=== PATIENT | female | born 1955 | race Caucasian/White ===

== ENCOUNTER 2017-01-26 18:30 | Inpatient (IN) | payer OTHER ==
--- NOTE | 2017-01-26 19:04 | PDOC ---
History of Present Illness - General History Source: Patient Exam Limitations: No Limitations - History of Present Illness Initial Comments: 01/26/17 21:07 A portion of this note was documented by scribe services under my direction. I have reviewed the details of the note, within reason, and agree with the documentation. The case summary and management plan written by me. Assessment and plan: This is a 61-year-old female who comes in complaining of fevers and buttock infection/cellulitis. Patient also said that her sugars have been high and that she has been feeling dizzy and not well. Patient had a low-grade fever here in the emergency room and was given acetaminophen for the fever. Patient has elevated white count with a left shift. CAT scan was done of the pelvis to rule out deep space infection there is a relatively extensive cellulitis but no collection or deep space infection at this time. Patient received IV vancomycin and Invanz as she is ALLERGIC to penicillin. Patient will be admitted to an inpatient bed under the hospitalist service. <Ap Lyon I - Last Filed: 01/26/17 21:07> - General History Source: Patient, Old Records Exam Limitations: No Limitations - History of Present Illness Initial Comments: 01/26/17 19:18 The patient is a 61 year old female with past medical history of diabetes who presents to the ED with complaints of dizziness and nausea which began yesterday evening. The patient reports having high blood sugar since yesterday evening, noting the level to be 338 last night. The patient went to [facility] earlier today for her symptoms and her blood sugar was noted to be 340. The patient was instructed to come to the ED. Additionally, the patient states that she recently developed an abscess on her right buttox as well as a vaginal fungal infection, both of which she denies ever having before. She reports treating the abscess with hot soaks and reports purchasing monistat 7 for her fungal infection but reports that she has not used it yet. She reports subjective fever last evening in which she treated with tylenol and reports chills and loss of appetite. She denies any vomiting, diarrhea, or urinary symptoms. PAST MEDICAL HISTORY: diabetes, hypertension, hyperlipidemia PAST SURGICAL HISTORY: Recent left knee replacement FAMILY HISTORY: no pertinent history SOCIAL HISTORY: Pt lives with family and is employed. MEDICATIONS: reviewed ALLERGIES: As per nursing notes PCP: Maricarmen Ashley General: Present: Fevers, chills, loss of appetite No weakness, no weight loss HEENT: No change in vision. No sore throat. No ear pain CardioVascular: No chest pain or shortness of breath Respiratory:No cough, or wheezing. Gastrointestinal: Present: nausea No vomiting, diarrhea or constipation, No rectal bleeding Genitourinary: Present: Vaginal fungal infection No dysuria, hematuria, or frequency Musculoskeletal: No joint or muscle pain or swelling Neurologic: Present: dizziness No headache, vertigo, loss of consciousness Psychiatric: nor depression Skin: Present: right buttox abscess No rashes or easy bruising Endocrine: no increased thirst or abnormal weight change Allergic: no skin or latex allergy All other systems reviewed and normal General: Well-nourished well-developed individual, no acute distress HEENT: Throat: Normal, tonsils normal, no erythema or exudate Neck: Supple, no meningeal signs, no lymphadenopathy Eyes::Pupils equal reactive and round, extraocular motion intact Chest: Nontender to palpation Cardiac: S1-S2 normal, regular rate and rhythm, no murmurs rubs or gallops Respiratory: Lungs clear to auscultation bilateral Abdomen: Soft, nondistended, normal bowel sounds, nontender to palpation diffusely Pelvic: Thick, white discharge on vagina externally Extremities: Warm, dry, no cyanosis, clubbing, or edema Skin: Right buttox area lateral to rectum markedly swollen, hot, red, with induration. No palpable collection. No rashes Neuro: Alert and oriented x3, nonfocal exam, grossly intact, normal gait Psych: Normal mood and affect <Luna Godoy - Last Filed: 01/26/17 21:37> - General Chief Complaint: Headache Stated Complaint: DIZZINESS, H/A, NAUSEA, DRY MOUTH, ABSCESS Time Seen by Provider: 01/26/17 19:03 Past History - Past Medical History Diabetes: Yes HTN: Yes Other medical history: BELLS PALSY X2 - Surgical History Appendectomy: Yes (AGE 22) - Psycho/Social/Smoking Cessation Hx Anxiety: No Suicidal Ideation: No Smoking History: Former smoker Have you smoked in the past 12 months: No If you are a former smoker, when did you quit?: 1988 Information on smoking cessation initiated: No Hx Alcohol Use: Yes (SOCIAL) Drug/Substance Use Hx: No Substance Use Type: None <Ap Lyon I - Last Filed: 01/26/17 21:07> <Luna Godoy - Last Filed: 01/26/17 21:37> - Past Medical History Allergies/Adverse Reactions: Allergies Allergy/AdvReac Type Severity Reaction Status Date / Time Penicillins Allergy Intermediate Rash Verified 01/26/17 18:57 Sulfa (Sulfonamide Allergy Unknown Rash Verified 01/26/17 18:57 Antibiotics) shrimp Allergy Verified 01/26/17 18:57 Home Medications: Ambulatory Orders Losartan Potassium 100 mg PO DAILY 01/26/17 Metformin HCl 500 mg PO BID 01/26/17 Review of Systems - Review of Systems Able to Perform ROS?: Yes All Other Systems: Reviewed and Negative <Luna Godoy - Last Filed: 01/26/17 21:37> *Physical Exam - Vital Signs Last Vital Signs Temp Pulse Resp BP Pulse Ox 99.1 F 115 H 17 160/80 99 01/26/17 18:40 01/26/17 18:40 01/26/17 18:40 01/26/17 18:40 01/26/17 18:40 <Ap Lyon I - Last Filed: 01/26/17 21:07> - Vital Signs Last Vital Signs Temp Pulse Resp BP Pulse Ox 99.1 F 115 H 17 160/80 99 01/26/17 18:40 01/26/17 18:40 01/26/17 18:40 01/26/17 18:40 01/26/17 18:40 <Luna Godoy - Last Filed: 01/26/17 21:37> Heart Score/ECG Review - ECG Intrepretation Comment:: 01/26/17 21:36 ECG obtained at 21:24 Normal sinus rhythm at 97 bpm, possible left atrial enlargement, left axis deviation <Luna Godoy - Last Filed: 01/26/17 21:37> ED Treatment Course - LABORATORY CBC & Chemistry Diagram: 01/26/17 19:15 01/26/17 19:15 <Ap Lyon I - Last Filed: 01/26/17 21:07> - LABORATORY CBC & Chemistry Diagram: 01/26/17 19:15 01/26/17 19:15 - RADIOLOGY Radiograph Interpretation: 01/26/17 21:[address] as reviewed by Dr. Ovalle reports moderate degree superficial subcutaneous cellulitis in the region of the right buttocks with localized skin thickening and inflammatory stranding in the subcutaneous fat with no signs of organized abscess or marked degree phlegmonous change. There is no evidence of deep extension identified at this time. In view of the extend o the changes noted, treatment with IV antibiotics and close follow up monitoring is recommended. <Luna Godoy - Last Filed: 01/26/17 21:37> *DC/Admit/Observation/Transfer - Discharge Dispostion Admit: Yes <Ap Lyon I - Last Filed: 01/26/17 21:07> - Attestations Scribe Attestion: 01/26/17 19:25 Documentation prepared by Luna Godoy, acting as medical device for Ap Lyon MD. <Luna Godoy - Last Filed: 01/26/17 21:37> Diagnosis at time of Disposition: Cellulitis of buttock, right, Hyperglycemia - Discharge Dispostion Condition at time of disposition: Good - Referrals Referrals: Maricarmen Ashley [Primary Care Provider] -
[2017-01-26] MEDS ORDERED: SODIUM CHLORIDE 1,000 ML IV STA (19:10)
[2017-01-26] MEDS ORDERED: ONDANSETRON 4 MG/2 ML VIAL IVPB ONE (19:18)
[2017-01-26] MEDS ORDERED: ACETAMINOPHEN 1000 MG/100 ML VIAL (NON FORMULARY) IVPB ONE (19:18)
[2017-01-26] MEDS ORDERED: KETOROLAC TROMETHAMINE 30 MG/1 ML VIAL IVPUSH ONE (19:18)
[2017-01-26] MEDS ORDERED: ACETAMINOPHEN INJECTION 100 ML IVPB ONE (19:30)
[2017-01-26] MEDS ORDERED: KETOROLAC TROMETHAMINE 30 MG/1 ML VIAL ONE (19:30)
[2017-01-26] MEDS ORDERED: ONDANSETRON 4 MG/2 ML VIAL ONE (19:30)
[2017-01-26] MEDS ORDERED: FLUCONAZOLE 100 MG TABLET (UD) PO ONE (19:35)
[2017-01-26 19:48] LABS: MCH 32.4 pg (25.7-33.7); MCHC 34.2 g/dl (32.0-36.0); MEAN CELL VOLUME 94.8 fl (80-96); PLATELET COUNT 207 K/MM3 (134-434); RDW 13.3 % (11.6-15.6); WHITE BLOOD COUNT 14.4 K/mm3 (4.0-10.8)
[2017-01-26 20:07] LABS: ACTIVATED PTT 30.6 SECONDS (24.0-38.9)
[2017-01-26 20:10] LABS: ALBUMIN 3.1 g/dl (3.5-5.0); ALK PHOS 61 U/L (32-92); ANION GAP 12 (8-16); BILIRUBIN,TOTAL 1.3 mg/dl (0.2-1.0); CALCIUM 9.2 mg/dl (8.4-10.2); CO2 22 mmol/L (22-28); CREATININE 0.8 mg/dl (0.6-1.3); SGOT/AST 22 U/L (10-42); SGPT/ALT 24 U/L (10-40); TOT PROT 8.1 g/dl (6.4-8.3)
[2017-01-26 20:12] LABS: INR 1.38 (0.82-1.09); PROTHROMBIN TIME (PATIENT) 15.3 SEC (10.2-13.0)
[2017-01-26 20:13] LABS: GLUCOSE,RANDOM 349 mg/dl (74-106)
[2017-01-26 20:35] LABS: TROPONIN I (DFP) 0.03 ng/ml (0.03-0.50)
[2017-01-26 20:42] LABS: VENOUS BLOOD GAS HCO3 23.4 meq/L (19-25); VENOUS PH 7.41 (7.32-7.42)
[2017-01-26] MEDS ORDERED: INSULIN REGULAR HUMAN 100 UNITS/ML *VIAL IVPUSH ONE (20:52)
[2017-01-26] MEDS ORDERED: VANCOMYCIN 1 GRAM (PRE-DOCKED) 1,000 MG/250 ML BAG IVPB STA (20:53)
[2017-01-26] MEDS ORDERED: ERTAPENEM SODIUM 1 GM VIAL IM STA (20:54)
[2017-01-26] MEDS ORDERED: VANCOMYCIN 1,000 MG VIAL (RESTRICTED TO ID ONLY) ONE (21:17)
[2017-01-26] MEDS ORDERED: ERTAPENEM SODIUM 1 GM VIAL ONE (21:17)
[2017-01-26] MEDS ORDERED: INSULIN REGULAR HUMAN 100 UNITS/ML *VIAL ONE ×2 (21:18→23:15)
[2017-01-26] MEDS ORDERED: HEMOQUE TEST 1 EACH EACH ONE (22:52)
[2017-01-26] MEDS: SODIUM CHLORIDE 1,000 ML IV SCH (23:00)
[2017-01-26 23:14] LABS: URINE BILIRUBIN 2+ (NEGATIVE); URINE BLOOD Trace-lysed (NEGATIVE); URINE GLUCOSE (UA) 2+ (NEGATIVE); URINE KETONE 2+ (NEGATIVE); URINE LEUK ESTERASE Trace (NEGATIVE); URINE NITRITE Negative (NEGATIVE); URINE UROBILINOGEN 1.0 E.U/dl (0.2-1.0)
[2017-01-26 23:19] LABS: URINE APPEARANCE HAZY; URINE COLOR YELLOW; URINE PROTEIN 3+ (NEGATIVE)
[2017-01-26 23:22] LABS: URINE BACTERIA FEW /hpf (NEGATIVE); URINE WBC 0-2 (3-5)
--- NOTE | 2017-01-26 23:48 | HP ---
CHIEF COMPLAINT: right buttock PCP: Maricarmen Ashley HISTORY OF PRESENT ILLNESS: This is a 61 year old female with past medical history significant for DM, HTN who presents to the ED with a 2-3 day history of dizziness/nausea, right buttock abscess and elevated blood sugars. She also report a vaginal yeast infection on and off for the past month. She denies chest pain, SOB, abdominal pain, vomiting, diarrhea. ER course was notable for: (1) WBC 14.4; Lactic acid 2.411 (2) given vanco IV and ertapenem IM, diflucan po (3)pain relieved with IV ofirmev and toradol Recent Travel: pt denies PAST MEDICAL HISTORY: HTN DM Allen Palsy celiac disease PAST SURGICAL HISTORY: Left knee replacement 2016 appendectomy with peritonitis age 22 Social History: works as a nurse Smoking: pt denies Alcohol: occ glass of wine Drugs: pt denies Family History: mother age 86, DM, multiple cardiac issues including previous PA father age 64, aortic aneurysm rupture older brother alive with "severe" HTN younger brother alive with lymphoma - malt type as per pt Allergies Penicillins Allergy (Intermediate, Verified 01/26/17 18:57) Rash rash,nausea Sulfa (Sulfonamide Antibiotics) Allergy (Unknown, Verified 01/26/17 18:57) Rash shrimp Allergy (Verified 01/26/17 18:57) HOME MEDICATIONS: 3 Medication Instructions Recorded Losartan Potassium 100 mg PO DAILY 01/26/17 Metformin HCl 500 mg PO BID 01/26/17 REVIEW OF SYSTEMS CONSTITUTIONAL: Present: diaphoresis Absent: fever, chills, generalized weakness, malaise, loss of appetite, weight change HEENT: Absent: rhinorrhea, nasal congestion, throat pain, throat swelling, difficulty swallowing, mouth swelling, ear pain, eye pain, visual changes CARDIOVASCULAR: Absent: chest pain, syncope, palpitations, irregular heart rate, lightheadedness , peripheral edema RESPIRATORY: Absent: cough, shortness of breath, dyspnea with exertion, orthopnea, wheezing, stridor, hemoptysis GASTROINTESTINAL: Present: nausea Absent: abdominal pain, abdominal distension, vomiting, diarrhea, constipation, melena, hematochezia GENITOURINARY: Absent: dysuria, frequency, urgency, hesitancy, hematuria, flank pain, genital pain MUSCULOSKELETAL: Absent: myalgia, arthralgia, joint swelling, back pain, neck pain SKIN: Absent: rash, itching, pallor HEMATOLOGIC/IMMUNOLOGIC: Absent: easy bleeding, easy bruising, lymphadenopathy, frequent infections ENDOCRINE: Absent: unexplained weight gain, unexplained weight loss, heat intolerance, cold intolerance NEUROLOGIC: Present: dizziness Absent: headache, focal weakness or paresthesias, unsteady gait, seizure, mental status changes, bladder or bowel incontinence PSYCHIATRIC: Absent: anxiety, depression, suicidal or homicidal ideation, hallucinations. PHYSICAL EXAMINATION Vital Signs - 24 hr 3 01/26/17 18:40 Temperature 99.1 F Pulse Rate 115 H Respiratory 17 Rate Blood Pressure 160/80 O2 Sat by Pulse 99 Oximetry (%) GENERAL: Awake, alert, and fully oriented, in no acute distress. HEAD: Normal with no signs of trauma. EYES: Pupils equal, round and reactive to light, extraocular movements intact, sclera anicteric, conjunctiva clear. No lid lag. EARS, NOSE, THROAT: Ears normal, nares patent, oropharynx clear without exudates. Moist mucous membranes. NECK: Normal range of motion, supple without lymphadenopathy, JVD, or masses. LUNGS: Breath sounds equal, clear to auscultation bilaterally. No wheezes, and no crackles. No accessory muscle use. HEART: Regular rate and rhythm, normal S1 and S2 without murmur, rub or gallop. ABDOMEN: Soft, nontender, not distended, normoactive bowel sounds, no guarding, no rebound, no masses. No hepatomegaly or splenomegaly. MUSCULOSKELETAL: Normal range of motion at all joints. No bony deformities or tenderness. No CVA tenderness. UPPER EXTREMITIES: 2+ pulses, warm, well-perfused. No cyanosis. No clubbing. No peripheral edema. LOWER EXTREMITIES: 2+ pulses, warm, well-perfused. No calf tenderness. No peripheral edema. NEUROLOGICAL: Cranial nerves II-XII intact. Normal speech. Normal gait. PSYCHIATRIC: Cooperative. Good eye contact. Appropriate mood and affect. SKIN: Warm, dry, normal turgor, no rashes or lesions noted, normal capillary refill. + erythema, firm edema to right buttock, perianal area and external labia, no fluctuance. + tenderness, + warmth Laboratory Results - last 24 hr 3 01/26/17 01/26/17 01/26/17 01/26/17 19:15 19:15 19:15 19:25 WBC 14.4 H D RBC 4.30 Hgb 13.9 Hct 40.7 MCV 94.8 MCHC 34.2 RDW 13.3 Plt Count 207 MPV 8.0 D Neutrophils % 91.0 H D Lymphocytes % 1.0 L D Monocytes % 4.0 Band Neutrophils 4.0 INR 1.38 H PTT (Actin FS) 30.6 VBG pH 7.41 POC VBG pCO2 37.5 L POC VBG pO2 28.2 Mixed VBG HCO3 23.4 Sodium 125 L Potassium 4.4 Chloride 91 L Carbon Dioxide 22 D Anion Gap 12 BUN 20 H D Creatinine 0.8 D Creat Clearance w eGFR > 60 Random Glucose 349 H* Lactic Acid 2.411 H* Calcium 9.2 Total Bilirubin 1.3 H D AST 22 D ALT 24 D Alkaline Phosphatase 61 Creatine Kinase 39 Troponin I 0.03 Total Protein 8.1 Albumin [address]/PELVIS CT WITHOUT CONTRAST ADDENDUM ADDENDUM #1 Typographical error is noted in the impression which should read: Impression: Moderate degree superficial subcutaneous cellulitis in the region of the right buttocks with localized skin thickening and inflammatory stranding in the subcutaneous fat with no signs of organized abscess or marked degree phlegmonous change. There is no evidence of deep extension identified at this time. In view of the extent of the changes noted, treatment with IV antibiotics and close follow-up monitoring is recommended. ORIGINAL REPORT CT pelvis without contrast Comparison studies: None Clinical history: Buttocks infection-evaluation for deep abscess Patient with diabetes Axial imaging completed with coronal and sagittal reformations, intravenous and oral contrast are not administered Superficial subcutaneous gluteal region cellulitis with microdroplets of free air noted projecting superficially and inferior to the levator ani muscles at least 5 cm superficial to the levator ani muscles and projecting at least 5 cm medial to the gluteal muscles with no signs of deep extension. No organized abscess or loculated collection is seen. No significant phlegmonous changes are seen with moderate degree stranding in the subcutaneous fat consistent with soft tissue cellulitis. Treatment with IV antibiotics is recommended and close follow-up monitoring of the findings. Impression: Moderate degree superficial subcutaneous saline this in the region of the right buttocks with localized skin thickening and inflammatory stranding in the subcutaneous fat with no signs of organized abscess or marked phlegmonous change and no deep extension visualized at this time. Review of the extent of the changes while superficial, treatment with intravenous antibiotics and close follow-up monitoring is recommended. Reported By: Alfredo Ovalle MD ASSESSMENT/PLAN: 61yF with PMH significant for DM, HTN, L TKR 2015 presented to ED with right buttock cellulitis. She is being admitted for further management. Sepsis secondary to cellulitis right buttock, likely MRSA - given vancomycin and ertapenem in the ED. - cont vancomycin - ID consult ordered - surgical consult if any fluctuance, none at this time - repeat lactic acid - NS@ 100cc/hr DM with Hyperglycemia - likely due to infection - hold home metformin - BGM TIDACHS with novolog sliding scale for now, if BGM persistently elevated, start levemir hyponatremia - sodium corrects to 129. - repeat BMP in am - cont NS @ 100cc/hr, if not improving, fluid restrict and renal consult HTN - cont home losartan DVT PPX - heparin 5000 TID FEN - NS @ 100cc/hr - Repeat BMP in am - Diabetic gluten free diet Dispo: pt currently requires inpatient management of her emergent condition. Visit type - Emergency Visit Emergency Visit: Yes ED Registration Date: 01/26/17 Care time: The patient presented to the Emergency Department on the above date and was hospitalized for further evaluation of their emergent condition. - New Patient This patient is new to me today: Yes Date on this admission: 01/26/17 - Critical Care Critical Care patient: No
[2017-01-27 00:37] VITALS: BMI 37.3
[2017-01-27] MEDS ORDERED: HEPARIN NA (PORCINE) 5,000 UNITS/ML 1ML VIAL SQ SCH (06:00)
[2017-01-27] MEDS: ACETAMINOPHEN 325 MG TABLET (FP) PO PRN ×2 (06:23→15:08)
[2017-01-27] MEDS: INSULIN SLIDING SCALE (NOVOLOG) 1 VIAL SQ SCH ×3 (06:29→22:13)
[2017-01-27 07:48] LABS: MCH 31.8 pg (25.7-33.7); MCHC 33.1 g/dl (32.0-36.0); MEAN CELL VOLUME 96.1 fl (80-96); MEAN PLT VOLUME 8.1 fl (7.5-11.1); PLATELET COUNT 195 K/MM3 (134-434); RDW 13.3 % (11.6-15.6); WHITE BLOOD COUNT 12.4 K/mm3 (4.0-10.8)
[2017-01-27 08:07] LABS: CALCIUM 8.7 mg/dl (8.4-10.2); COCKROFT - GAULT 109.293; CREATININE 0.8 mg/dl (0.6-1.3); MAGNESIUM 1.5 mg/dL (1.8-2.4); PHOSPHOROUS 2.4 mg/dl (2.5-4.6)
--- NOTE | 2017-01-27 08:20 | PN ---
Progress Note (short form) - Note Progress Note: ID consult dictated imp/reccd buttock abscess diabetes pen allergy (vomiting and nausea) vancomycin/ertapenem surgery consult- npo until seen by surgery f/u cultures d/w hospitalist Problem List - Problems (1) Abscess of buttock Code(s): L02.31 - CUTANEOUS ABSCESS OF BUTTOCK (2) Cellulitis of buttock, right Code(s): L03.317 - CELLULITIS OF BUTTOCK (3) Diabetes Code(s): E11.9 - TYPE 2 DIABETES MELLITUS WITHOUT COMPLICATIONS (4) Penicillin allergy Code(s): Z88.0 - ALLERGY STATUS TO PENICILLIN
--- NOTE | 2017-01-27 08:52 | CONS ---
DATE OF CONSULTATION: DATE OF DICTATION: 01/27/2017 REQUESTED BY: The hospitalist service. This is a 61-year-old woman with a history of diabetes who presents with high sugar since Sunday and a lump in her right buttock. She felt ill on Sunday. She went home early from work. She did not go to work . Sunday, she went to [facility] where she was noted to have an elevated blood sugar, and sent to the ER where she was noted to have right buttock swelling extending to her vulva. She had cultures drawn. She had a CAT scan of her pelvis done that shows superficial gluteal area cellulitis with some droplets of free air. She was given vancomycin and ertapenem in the emergency room. She reports she has had sweats and chills, no documented fevers since this all began and the lump appeared. She reports feeling that she has had like a fungal-vaginal infection and an itch for the last month. PAST MEDICAL HISTORY: Notable for diabetes, hypertension, hyperlipidemia. She had a left knee replacement in December 2015 at [facility]. She was at that time MRSA nares culture-positive and was treated with nasal mupirocin prior to her surgery. She has a history of Romero palsy x2, celiac disease. Surgical history: She had an appendectomy with peritonitis at age 22. ALLERGIES: PENICILLIN, which she states gives her nausea and vomiting; SULFA, which gives her a rash; SHRIMP. MEDICATIONS: She takes losartan and metformin as an outpatient. SOCIAL HISTORY: She does not smoke. She works as a nurse. There is no history of any substance use. FAMILY HISTORY: Notable for diabetes, coronary artery disease, and hypertension. REVIEW OF SYSTEMS: She is awake and alert. Again, she notes profuse sweats. She has no abdominal pain. She has no cough. She has no chest pain. She notes discomfort in her buttock area. PHYSICAL EXAMINATION: General: She is awake and alert. Vital signs: Temperature is 98.6, T-max is 99.1; pulse is 96; blood pressure is 111/55; respiratory rate is 18; she weighs 204 pounds; she is saturating 98% on room air. HEENT: She is normocephalic. Her eyes are anicteric. Neck: Supple. Lungs: Clear to auscultation. Heart: Regular rate and rhythm. Abdomen: Soft. Nontender. Genitourinary: Her perineum is noted for she has induration along the medial aspect of her right buttock that extends into her vulva. The entire area is enlarged, erythematous, and indurated. No fluctuance is noted. LABORATORIES: Notable for a white count of 14.4 on admission, hemoglobin 13.9, platelets 207. This morning, white count is 12.4. INR is 1.3. BUN 26 and creatinine 0.8 with a glucose of 129. Lactic acid was 2.4 on admission and repeat was 1.9. Urinalysis is negative for leukocyte esterase and cultures are pending. CAT scan was read as moderate-degree, superficial, subcutaneous swelling in the region of the right buttock with localized skin thickening and inflammatory stranding. There are microdroplets of free air noted. In summary, this is a 61-year-old woman with a buttock abscess extending along to her vulva with diabetes and a PENICILLIN allergy. I would continue the vancomycin and ertapenem on the basis of her allergies and prior MRSA history. Would definitely obtain a Surgery evaluation to see if she needs drainage, as there are some droplets of air visible on the CAT scan. I would keep her n.p.o. until seen by Surgery and follow up her cultures. All of the above was discussed with the covering hospitalist. MUNIR NUR M.D. [id number]
[2017-01-27] MEDS ORDERED: VANCOMYCIN 1 GRAM (PRE-DOCKED) 1,000 MG/250 ML BAG IVPB ONE (09:00)
[2017-01-27] MEDS: VANCOMYCIN 1,250 MG in DEXTROSE 5%-WATER - 250 ML IVPB SCH ×2 (09:20→22:12)
[2017-01-27] MEDS ORDERED: POLYMYXIN B SULFATE 500,000 UNIT VIAL ONE (09:51)
[2017-01-27] MEDS ORDERED: GENTAMICIN SO4 80 MG/2 ML VIAL ONE (09:51)
--- NOTE | 2017-01-27 09:57 | CONSULT ---
Consult Consult Specialty:: colorectal surgery Reason for Consultation:: r/o necrotizing infection - History of Present Illness Chief Complaint: perirectal pain History of Present Illness: pt with pain for a couple days near anus/buttock/lower labia. Now feeling systemic symptoms of malaise, fever, chills, muscle aches. came to ED and workup reveals hyponatremia, leukocytosis, glucose of almost 350, lactic acidosis and CT showing air in subcutaneous tissues. - Past Medical History ...: No - Alcohol/Substance Use Hx Alcohol Use: Yes (SOCIAL) - Smoking History Smoking history: Former smoker Have you smoked in the past 12 months: No If you are a former smoker, when did you quit?: 1988 Home Medications - Allergies Allergies/Adverse Reactions: Allergies Allergy/AdvReac Type Severity Reaction Status Date / Time Penicillins Allergy Intermediate Rash Verified 01/26/17 18:57 Sulfa (Sulfonamide Allergy Unknown Rash Verified 01/26/17 18:57 Antibiotics) shrimp Allergy Verified 01/26/17 18:57 - Home Medications Home Medications: Ambulatory Orders Losartan Potassium 100 mg PO DAILY 01/26/17 Metformin HCl 500 mg PO BID 01/26/17 Family Disease History - Family Disease History Family History: Unremarkable Review of Systems - Review of Systems Constitutional: reports: Chills, Diaphoresis, Fever, Lethargy Eyes: denies: Blind Spots, Blurred Vision HENT: denies: Difficult Swallowing, Ear Discharge Neck: denies: Decreased ROM, Lumps Cardiovascular: denies: Chest Pain, Edema Respiratory: denies: Cough, Exercise Intolerance Gastrointestinal: denies: Abdominal Pain, Bloating Genitourinary: denies: Burning, Discharge Breasts: denies: Lumps, Pain Musculoskeletal: denies: Back Pain, Crepitus Integumentary: reports: Erythema. denies: Blister, Bruising Neurological: denies: Change in LOC, Change in Speech Endocrine: denies: Excessive Sweating, Flushing Hematology/Lymphatic: denies: Easily Bruised, Excessive Bleeding Psychiatric: denies: Altered Sleep Pattern, Anxiety Physical Exam Vital Signs: Vital Signs Temperature 98.6 F 01/26/17 23:52 Pulse Rate 96 H 01/26/17 23:52 Respiratory Rate 18 01/26/17 23:52 Blood Pressure 111/55 01/26/17 23:52 O2 Sat by Pulse Oximetry (%) 98 01/26/17 23:52 Constitutional: Yes: No Distress, Calm Eyes: Yes: Conjunctiva Clear, EOM Intact HENT: Yes: Atraumatic, Normocephalic Neck: Yes: Supple, Trachea Midline Cardiovascular: Yes: Regular Rate and Rhythm Respiratory: Yes: Regular, CTA Bilaterally Gastrointestinal: Yes: Normal Bowel Sounds, Soft. No: Distention, Tenderness ...Rectal Exam: Yes: Other (in lithotomy position can see induration under labia towards buttock/anal region on right side. in left lateral decubitus positionshe has more tenderness right anterior of anus.) Renal/: No: Bladder Distention, Oliguria Musculoskeletal: No: Joint Stiffness, Joint Swelling Extremities: No: Calf Tenderness, Erythema Integumentary: No: Erythema, Rash Neurological: Yes: Alert, Oriented Psychiatric: Yes: Alert, Oriented Labs: CBC, BMP 01/27/17 07:10 01/27/17 07:10 Imaging - Results Cat Scan: Report Reviewed, Image Reviewed Problem List - Problems (1) Abscess of buttock Assessment/Plan: patient with necrotizing type infection given air in subcutaneous tissues broad spectrum abx npo for I&D emergently Code(s): L02.31 - CUTANEOUS ABSCESS OF BUTTOCK (2) Diabetes Code(s): E11.9 - TYPE 2 DIABETES MELLITUS WITHOUT COMPLICATIONS (3) Hyperglycemia Code(s): R73.9 - HYPERGLYCEMIA, UNSPECIFIED
[2017-01-27] MEDS ORDERED: PROPOFOL 20 ML ONE ×2 (09:59)
[2017-01-27] MEDS ORDERED: SUCCINYLCHOLINE CHLORIDE 200 MG/10 ML VIAL ONE (10:00)
[2017-01-27] MEDS ORDERED: MIDAZOLAM HCL 2 MG/2 ML SINGLE DOSE VIAL ONE (10:00)
[2017-01-27] MEDS ORDERED: ePHEDrine SULFATE 50 MG/1 ML AMPULE ONE (10:00)
[2017-01-27] MEDS: LOSARTAN POTASSIUM 50 MG TABLET (FP) PO SCH (10:10)
--- NOTE | 2017-01-27 10:22 | PN ---
Physical Exam: SUBJECTIVE: Patient seen and examined Pt c/o sweating after Tylenol, and reports mild nausea, no vomiting,denies abdominal pain,fever, chills, cp, sob, palpitations, urinary symptoms or Rt buttock pain. OBJECTIVE: GENERAL: The patient is awake, alert, and fully oriented, in no acute distress. HEAD: Normal with no signs of trauma. EYES: PERRL, extraocular movements intact, sclera anicteric, conjunctiva clear. No ptosis. ENT: Ears normal, nares patent, oropharynx clear without exudates, moist mucous membranes. NECK: Trachea midline, full range of motion, supple. LUNGS: Breath sounds equal, clear to auscultation bilaterally, no wheezes, no crackles, no accessory muscle use. HEART: Regular rate and rhythm, S1, S2 without murmur, rub or gallop. ABDOMEN: Soft, nontender, nondistended, normoactive bowel sounds, no guarding, no rebound, no hepatosplenomegaly, no masses. RT buttock with redness,mild tenderness,+ induration, no drainage,spreading from buttock to the perineum. EXTREMITIES: 2+ pulses, warm, well-perfused, no edema. NEUROLOGICAL: Cranial nerves II through XII grossly intact. Normal speech, gait not observed. PSYCH: Normal mood, normal affect. SKIN: Warm, dry, normal turgor, no rashes or lesions noted Laboratory Results - last 24 hr 01/27/17 01/27/17 01/27/17 06:29 07:10 07:10 WBC 12.4 H RBC 3.77 Hgb 12.0 D Hct 36.2 MCV 96.1 H MCHC 33.1 RDW 13.3 Plt Count 195 MPV 8.1 Neutrophils % Y Lymphocytes % Y Sodium 129 L Potassium 4.1 Chloride 97 L Carbon Dioxide 24 Anion Gap 8 BUN 26 H D Creatinine 0.8 POC Glucometer 230 Random Glucose 227 H D Calcium 8.7 Phosphorus 2.4 L Magnesium 1.5 L Active Medications Generic Name Dose Route Start Last Admin Trade Name Freq PRN Reason Stop Dose Admin Acetaminophen 650 mg 01/27/17 01:44 01/27/17 06:23 Tylenol - PO 650 mg Q6H PRN Administration FEVER OR PAIN Sodium Chloride 1,000 mls @ 100 mls/hr 01/26/17 23:00 01/26/17 23:00 Normal Saline - IV 100 mls/hr ASDIR ROGER Administration Vancomycin HCl 1,250 mg/ 250 mls @ 250 mls/hr 01/27/17 10:00 01/27/17 09:20 Dextrose IVPB 250 mls/hr BID ROGER Administration Protocol Ertapenem 1 gm/ Sodium 50 mls @ 50 mls/hr 01/27/17 10:00 Chloride IVPB DAILY ROGER Protocol Insulin Aspart 1 vial 01/27/17 07:00 01/27/17 06:29 Novolog Vial Sliding Scale - SQ 3 units ACHS ROGER Administration Protocol Losartan Potassium 100 mg 01/27/17 10:00 Cozaar - PO DAILY ROGER * Imaging Pelvis CT :Moderate degree superficial subcutaneous saline this in the region of the right buttocks with localized skin thickening and inflammatory stranding in the subcutaneous fat with no signs of organized abscess or marked phlegmonous change and no deep extension visualized at this time. Review of the extent of the changes while superficial, treatment with intravenous antibiotics and close follow-up monitoring is recommended. *Cultures done, report pending CxR: NAD ASSESSMENT/PLAN: This is a 61 year old female with past medical history significant for DM, HTN who presents to the ED with a 2-3 day history of dizziness/nausea, right buttock pain, and not feeling well . In ER found to have elevated WBC,lactic acid and hyponatremia. *Sepsis likely due to Rt buttock cellulitis - afebrile , WBC trending down -ID in put appreciated - will cont on Vanco and Ertapenem - surgery following, plan I&D today - will keep pt NPO - lactic acid normalized - BC done, report pending - will cont on IVF *DM with Hyperglycemia- likely due to infection - BS trending down - will check HgbAlc - will cont on hold off on home metformin - BGM TIDACHS with novolog sliding scale for now, if BGM persistently elevated, start levemir *Hyponatremia- likely due to dehydration - NA level 125 >129 (sodium corrects to 129) - will cotn on IVF *HTN- BP controlled - cont home losartan * Low mg and phosphorus - will replace - will f/u on labs in am *DVT PPX- Will hold off on Heparin for now and will resume, if no bleeding post sx, will use SCD for now FEN- NS @ 100cc/hr- Diabetic gluten free diet Visit type - Emergency Visit Emergency Visit: Yes ED Registration Date: 01/26/17 Care time: The patient presented to the Emergency Department on the above date and was hospitalized for further evaluation of their emergent condition. - New Patient This patient is new to me today: Yes Date on this admission: 01/27/17 - Critical Care Critical Care patient: No
[2017-01-27] MEDS: ERTAPENEM SODIUM 1 GM in SODIUM CHLORIDE 50 ML IVPB SCH (10:35)
[2017-01-27] MEDS ORDERED: LIDOCAINE HCL 1%, 10 MG/ML (20ML VIAL) ONE (10:36)
[2017-01-27] MEDS ORDERED: MAGNESIUM SULF 50% (8.12 MEQ/2 ML-1 GM VIAL) IVPB ONE (10:42)
[2017-01-27] MEDS ORDERED: POTASSIUM PHOSPHATE IVPB ONE (10:46)
[2017-01-27] MEDS ORDERED: SODIUM CHLORIDE IVPB ONE (10:46)
[2017-01-27 10:55] LABS: PLATELET ESTIMATE NORMAL (NORMAL)
[2017-01-27] MEDS ORDERED: POTASSIUM PHOSPHATE 15 MM in SODIUM CHLORIDE 250 ML IVPB ONE (11:05)
--- NOTE | 2017-01-27 11:12 | OP ---
Operative Note - Note: Operative Date: 01/27/17 Pre-Operative Diagnosis: necrotizing buttock infection Operation: incision and drainage of necrotizing infection Findings: extensive infection with necrotic type tissue/foul smelling but relatively superficial. does NOT appear to be of anal origin. Post-Operative Diagnosis: Same as Pre-op Surgeon: Maldonado Angulo Anesthesia: Spinal Estimated Blood Loss (mls): 10 Operative Report Dictated: Yes
[2017-01-27] MEDS ORDERED: OXYCODONE/APAP 5/325MG COMBO TABLET PO PRN ×3 (11:14→11:45)
[2017-01-27] MEDS ORDERED: HYDROmorphone HCL CARPU-JECT 1 MG/1 ML DISP.SYRIN IVPB PRN (11:14)
[2017-01-27] MEDS ORDERED: SODIUM CHLORIDE 1,000 ML IV SCH (11:15)
[2017-01-27] MEDS ORDERED: PROMETHAZINE HCL 25 MG/1 ML VIAL IVPUSH PRN ×2 (11:28→11:44)
[2017-01-27] MEDS ORDERED: ONDANSETRON 4 MG/2 ML VIAL IVPUSH PRN ×2 (11:28→11:44)
[2017-01-27] MEDS ORDERED: LACTATED RINGERS SOLUTION 1,000 ML IV SCH (11:30)
[2017-01-27] MEDS ORDERED: INSULIN (NOVOLOG) ASPART 100 UNITS/ML 10ML VIAL SQ ONE (11:45)
--- NOTE | 2017-01-27 11:55 | OP ---
DATE OF OPERATION: 01/27/2017 PREOPERATIVE DIAGNOSIS: A necrotizing infection of the buttock. POSTOPERATIVE DIAGNOSIS: A necrotizing infection of the buttock. PROCEDURE PERFORMED: Incision and drainage of a necrotizing infection, with debridement of the wound. DRAINS: [place] drains x4. INCISIONS: A total of 4 incisions. SURGEON: Twan Angulo MD ANESTHESIA: Spinal, saddle block. OPERATIVE FINDINGS: The patient had foul-smelling exudate, but really no simba pus. This was sent for culture. DESCRIPTION OF PROCEDURE: The patient was taken to the operating room emergently, after I was consulted that the patient had hyperglycemia, air in the soft tissues and was toxic in appearance. The patient was brought to the operating room after confirming name, date of and medical record number. She was given a spinal anesthetic and then placed in a prone position. She was then prepped and draped in the usual sterile fashion. We confirmed that she was given appropriate perioperative antibiotics. A time-out was then performed. I made an incision over the most indurated area in the right anterior aspect of the anus. I went down to the space where there was no pus but definitely a free space because of , necrotic tissue. This was signified by some grayish exudate, as well as cruz-brown tinge of the muscle. Then I made a counterincision in the inferior labia, which was also indurated. Using a Teresa clamp, I was able to find the tract of how this infection spread. There was also an area of induration posterior, to the right of the anus. This was investigated with an incision, and there was some more grayish exudate. Then I enlarged this opening and more cruz, foul-smelling fluid came out. Then I made another counterincision. Then eventually all 4 incisions were linear. I then debrided the grayish tissue by dragging a Teresa clamp through it, with a lap pad to debride the tissue. I then made cruciate-type incisions to try to open up the wound as best as possible without removing too much skin. I used my finger to continuously debride and investigate any necrotic tissue. It did not appear that this infection went across the midline, as the tissue appeared more solid as I went to the posterior midline of the anus. I actually pushed on the left side to see if there was any fluid drainage into the wound, and there was not, and it was soft on the left side as well. The CT scan did not show anything on the left side. At this point, I then copiously irrigated the cavities. Then I actually made an ellipse of skin and sent it off for pathology. Then I placed a [place] drain, looped so the top two got one [place] loop and then the bottom two got another [place], and this was secured with silk suture. So there was a total of 2 [place] drains left in the patient. Then I placed dry gauze on top and an ABD, and secured it with silk tape. The patient tolerated the procedure well. TWAN ANGULO M.D. RAMOS/[id number]
[2017-01-27] MEDS: METRONIDAZOLE 500 MG PREMIXED 100 ML IVPB SCH (20:00)
[2017-01-27] MEDS ORDERED: INSULIN (NOVOLOG) ASPART 100 UNITS/ML 10ML VIAL ONE (21:28)
[2017-01-28] MEDS: SODIUM CHLORIDE 1,000 ML IV SCH (01:43)
[2017-01-28] MEDS: METRONIDAZOLE 500 MG PREMIXED 100 ML IVPB SCH ×3 (01:44→18:36)
[2017-01-28 08:37] LABS: MCH 32.1 pg (25.7-33.7); MCHC 33.6 g/dl (32.0-36.0); MEAN CELL VOLUME 95.3 fl (80-96); MEAN PLT VOLUME 8.6 fl (7.5-11.1); PLATELET COUNT 186 K/MM3 (134-434); RDW 13.3 % (11.6-15.6); WHITE BLOOD COUNT 11.1 K/mm3 (4.0-10.8)
[2017-01-28 08:50] LABS: ANION GAP 12 (8-16); CALCIUM 8.5 mg/dl (8.4-10.2); CO2 19 mmol/L (22-28); CREATININE 0.7 mg/dl (0.6-1.3); GLUCOSE,RANDOM 196 mg/dl (74-106); MAGNESIUM 1.7 mg/dL (1.8-2.4); PHOSPHOROUS 2.2 mg/dl (2.5-4.6)
[2017-01-28] MEDS: LOSARTAN POTASSIUM 50 MG TABLET (FP) PO SCH (10:05)
[2017-01-28] MEDS: ERTAPENEM SODIUM 1 GM in SODIUM CHLORIDE 50 ML IVPB SCH (10:07)
[2017-01-28] MEDS: ENOXAPARIN NA (PORCINE) 40 MG/0.4 ML DISP.SYRIN SQ SCH (10:07)
[2017-01-28] MEDS: VANCOMYCIN 1,250 MG in DEXTROSE 5%-WATER - 250 ML IVPB SCH ×2 (10:07→22:26)
--- NOTE | 2017-01-28 10:51 | PN ---
Progress Note, Physician Chief Complaint: less pain History of Present Illness: feels better. ambulating. showered. +fever. tolerating diet. pain is better. drainage is copious. - Current Medication List Current Medications: Active Medications Acetaminophen (Tylenol -) 650 mg PO Q6H PRN PRN Reason: FEVER OR PAIN Last Admin: 01/27/17 15:08 Dose: 650 mg Enoxaparin Sodium (Lovenox -) 40 mg SQ DAILY ROGER Fentanyl (Sublimaze Injection -) 25 mcg IVPUSH [id number] PRN PRN Reason: PAIN Stop: 01/30/17 11:44 Hydromorphone HCl (Dilaudid Injection -) 1 mg IVPB Q4H PRN PRN Reason: PAIN Sodium Chloride (Normal Saline -) 1,000 mls @ 100 mls/hr IV ASDIR [facility] Last Admin: 01/28/17 01:43 Dose: 100 mls/hr Vancomycin HCl 1,250 mg/ (Dextrose) 250 mls @ 250 mls/hr IVPB BID ROGER PRN Reason: Protocol Last Admin: 01/27/17 22:12 Dose: 250 mls/hr Ertapenem 1 gm/ Sodium (Chloride) 50 mls @ 50 mls/hr IVPB DAILY ROGER PRN Reason: Protocol Last Admin: 01/27/17 10:35 Dose: 50 mls/hr Sodium Chloride (Normal Saline -) 1,000 mls @ 125 mls/hr IV ASDIR [facility] Last Admin: 01/27/17 19:46 Dose: Not Given Lactated Ringer's (Lactated Ringers Solution) 1,000 mls @ 75 mls/hr IV ASDIR [facility] Last Admin: 01/27/17 19:46 Dose: Not Given Metronidazole (Flagyl 500mg Premixed Ivpb -) 100 mls @ 100 mls/hr IVPB Q8H-IV [facility] Last Admin: 01/28/17 01:44 Dose: 100 mls/hr Insulin Aspart (Novolog Vial Sliding Scale -) 1 vial SQ ACHS ROGER PRN Reason: Protocol Last Admin: 01/27/17 22:13 Dose: 4 units Losartan Potassium (Cozaar -) 100 mg PO DAILY [facility] Last Admin: 01/27/17 10:10 Dose: 100 mg Oxycodone/Acetaminophen (Percocet 5/325 -) 2 combo PO Q4H PRN PRN Reason: PAIN LEVEL 6-10 Oxycodone/Acetaminophen (Percocet 5/325 -) 1 combo PO Q4H PRN PRN Reason: PAIN LEVEL 1-5 - Objective Vital Signs: Vital Signs Temperature 100.3 F H 01/28/17 04:00 Pulse Rate 104 H 01/28/17 04:00 Respiratory Rate 20 01/28/17 04:00 Blood Pressure 135/67 01/28/17 04:00 O2 Sat by Pulse Oximetry (%) 95 01/27/17 22:36 Constitutional: Yes: No Distress, Calm Eyes: Yes: Conjunctiva Clear, EOM Intact HENT: Yes: Atraumatic, Normocephalic Neck: Yes: Supple, Trachea Midline Cardiovascular: Yes: Regular Rate and Rhythm Respiratory: Yes: Regular, CTA Bilaterally Gastrointestinal: Yes: Soft. No: Distention ...Rectal Exam: Yes: Deferred Genitourinary: No: CVA Tenderness - Left, CVA Tenderness - Right Musculoskeletal: Yes: Other (wound open with some red brown erythema. less indurated. no purulence.) Extremities: No: Calf Tenderness, Erythema Integumentary: No: Erythema, Rash Neurological: Yes: Alert, Oriented Psychiatric: Yes: Alert, Oriented Labs: CBC, BMP 01/28/17 06:30 01/28/17 06:30 INR, PTT INR 1.38 (0.82-1.09) H 01/26/17 19:15 Problem List - Problems (1) Abscess of buttock Assessment/Plan: cont wound care cont abx for fever may consider D/C home once no fever Code(s): L02.31 - CUTANEOUS ABSCESS OF BUTTOCK (2) Diabetes Code(s): E11.9 - TYPE 2 DIABETES MELLITUS WITHOUT COMPLICATIONS (3) Hyperglycemia Code(s): R73.9 - HYPERGLYCEMIA, UNSPECIFIED
[2017-01-28] MEDS: ACETAMINOPHEN 325 MG TABLET (FP) PO PRN (11:00)
--- NOTE | 2017-01-28 13:20 | PN ---
Progress Note (short form) - Note Progress Note: feels better having some fevers postop wound drained yesterday in the OR, several josh drains placed she feels better Vital Signs Period Temp Pulse Resp BP Sys/Sloan Pulse Ox Last 24 Hr 98.5 F-101.0 F 100-104 17-20 120-135/54-67 95-96 cor-rrr lungs clear abd soft,nt ext no edema much less induration of the vulva and buttock, minimal drainage from the drains CBC, BMP 01/28/17 06:30 01/28/17 06:30 Microbiology 01/27/17 13:09 Buttock - Right Gram Stain - Final 01/27/17 13:09 Buttock - Right Wound Culture - Preliminary NO GROWTH OBTAINED AFTER 24 HOURS INCUBATION, REINCUBATED. 01/27/17 01:00 Nares - Right Nares MRSA Screen - Final NO MRSA ISOLATED 01/27/17 00:10 Nares - Mrsa Screen - Left MRSA Screen - Final NO MRSA ISOLATED 01/26/17 23:00 Urine - Urine Clean Catch Urine Culture - Final NO GROWTH OBTAINED 01/26/17 19:15 Blood - Peripheral Venous Blood Culture - Preliminary NO GROWTH OBTAINED AFTER 24 HOURS, INCUBATION TO CONTINUE FOR 4 DAYS. 01/26/17 19:15 Blood - Peripheral Venous Blood Culture - Preliminary NO GROWTH OBTAINED AFTER 24 HOURS, INCUBATION TO CONTINUE FOR 4 DAYS. a/p buttock abscess diabetes penicillin allergy s/p incision and drainage yesterday pod #1 continue vancomycin/ertapenem/flagyl f/u cultures f/u operative cultures Problem List - Problems (1) Abscess of buttock Code(s): L02.31 - CUTANEOUS ABSCESS OF BUTTOCK (2) Cellulitis of buttock, right Code(s): L03.317 - CELLULITIS OF BUTTOCK (3) Diabetes Code(s): E11.9 - TYPE 2 DIABETES MELLITUS WITHOUT COMPLICATIONS (4) Penicillin allergy Code(s): Z88.0 - ALLERGY STATUS TO PENICILLIN
[2017-01-28] MEDS: INSULIN SLIDING SCALE (NOVOLOG) 1 VIAL SQ SCH ×2 (15:06→17:00)
--- NOTE | 2017-01-28 17:23 | PN ---
Physical Exam: SUBJECTIVE: Patient seen and examined at bedside. Has pain but declines any pain meds other than Tylenol. Has take opioids in past with bad reaction. Continues to have chills. OBJECTIVE: Vital Signs Period Temp Pulse Resp BP Sys/Sloan Pulse Ox Last 24 Hr 98.5 F-100.3 F 91-104 17-20 116-135/60-67 95-96 GENERAL: The patient is awake, alert, and fully oriented, in no acute distress. HEAD: Normal with no signs of trauma. EYES: PERRL, extraocular movements intact, sclera anicteric, conjunctiva clear. No ptosis. LUNGS: Breath sounds equal, clear to auscultation bilaterally, no wheezes, no crackles, no accessory muscle use. HEART: Regular rate and rhythm, S1, S2 without murmur, rub or gallop. ABDOMEN: Soft, nontender, nondistended, normoactive bowel sounds, no guarding, no rebound EXTREMITIES: 2+ pulses, warm, well-perfused, no edema. RIGHT BUTTOCK: Four surgical incisions along the intergluteal fold with flat drains in situ; serosanguinous drainage noted; no pus, no odor NEUROLOGICAL: Cranial nerves II through XII grossly intact. Normal speech, gait not observed. Moves all extremities freely Laboratory Results - last 24 hr 01/27/17 01/28/17 01/28/17 16:38 06:30 06:30 WBC 11.1 H RBC 3.60 Hgb 11.5 Hct 34.3 MCV 95.3 MCHC 33.6 RDW 13.3 Plt Count 186 MPV 8.6 Neutrophils % Y Lymphocytes % Y Sodium 133 L Potassium 4.0 Chloride 102 Carbon Dioxide 19 L D Anion Gap 12 BUN 25 H Creatinine 0.7 POC Glucometer 265 Random Glucose 196 H Calcium 8.5 Phosphorus 2.2 L Magnesium 1.7 L 01/28/17 01/28/17 12:00 16:34 WBC RBC Hgb Hct MCV MCHC RDW Plt Count MPV Neutrophils % Lymphocytes % Sodium Potassium Chloride Carbon Dioxide Anion Gap BUN Creatinine POC Glucometer 247 260 Random Glucose Calcium Phosphorus Magnesium Active Medications Generic Name Dose Route Start Last Admin Trade Name Freq PRN Reason Stop Dose Admin Acetaminophen 650 mg 01/27/17 01:44 01/28/17 11:00 Tylenol - PO 650 mg Q6H PRN Administration FEVER OR PAIN Enoxaparin Sodium 40 mg 01/28/17 10:00 01/28/17 10:07 Lovenox - SQ 40 mg DAILY ROGER Administration Fentanyl 25 mcg 01/27/17 11:43 Sublimaze Injection - IVPUSH 01/30/17 11:44 [id number] PRN PAIN Hydromorphone HCl 1 mg 01/27/17 11:14 Dilaudid Injection - IVPB Q4H PRN PAIN Sodium Chloride 1,000 mls @ 100 mls/hr 01/26/17 23:00 01/28/17 01:43 Normal Saline - IV 100 mls/hr ASDIR ROGER Administration Vancomycin HCl 1,250 mg/ 250 mls @ 250 mls/hr 01/27/17 10:00 01/28/17 10:07 Dextrose IVPB 250 mls/hr BID ROGER Administration Protocol Ertapenem 1 gm/ Sodium 50 mls @ 50 mls/hr 01/27/17 10:00 01/28/17 10:07 Chloride IVPB 50 mls/hr DAILY ROGER Administration Protocol Sodium Chloride 1,000 mls @ 125 mls/hr 01/27/17 11:15 01/27/17 19:46 Normal Saline - IV Not Given ASDIR ROGER Lactated Ringer's 1,000 mls @ 75 mls/hr 01/27/17 11:30 01/27/17 19:46 Lactated Ringers Solution IV Not Given ASDIR ROGER Metronidazole 100 mls @ 100 mls/hr 01/27/17 19:00 01/28/17 10:07 Flagyl 500mg Premixed Ivpb - IVPB 100 mls/hr Q8H-IV ROGER Administration Insulin Aspart 1 vial 01/27/17 07:00 01/28/17 15:06 Novolog Vial Sliding Scale - SQ 4 units ACHS ROGER Administration Protocol Losartan Potassium 100 mg 01/27/17 10:00 01/28/17 10:05 Cozaar - PO 100 mg DAILY ROGER Administration Oxycodone/Acetaminophen 2 combo 01/27/17 11:14 Percocet 5/325 - PO Q4H PRN PAIN LEVEL 6-10 Oxycodone/Acetaminophen 1 combo 01/27/17 11:45 Percocet 5/325 - PO Q4H PRN PAIN LEVEL 1-5 ASSESSMENT/PLAN 61 year-old woman with a significant PMH of HTN, NIDDM, [place] Palsy, and celiac disease. Admitted for severe sepsis secondary to right buttock abscess. Severe sepsis secondary to necrotizing right buttock abscess Lactic acidosis, resolved --s/p I&D on 01/27; as per surgery, infection was extensive with necrotic type tissue --Tm 101.0; WBC trending down 14.4-->11.1k; lactic acid now wnl --contiue Ertapenem (day #2), metronidazole (day #2), and vanc (day #2) --cultures pending --ID following Uncontrolled diabetes Proteinuria Glucosuria Ketonuria --HgbA1C 12.0 --Novolog sliding scale coverage Hypertension --presently normotensive --hold anti-hypertensives for now due to sepsis F/E/N Fluids: NS @ 100mL/hr Electrolytes: replete as indicated Nutrition: diabetic diet DVT prophylaxis: lovenox, oob, ambulation Dispo: continues to require inpatient care. Full code. Visit type - Emergency Visit Emergency Visit: Yes ED Registration Date: 01/26/17 Care time: The patient presented to the Emergency Department on the above date and was hospitalized for further evaluation of their emergent condition. - New Patient This patient is new to me today: Yes Date on this admission: 01/28/17 - Critical Care Critical Care patient: No
[2017-01-28] MEDS ORDERED: MAGNESIUM OXIDE 400 MG TABLET (FP) PO ONE (17:34)
[2017-01-28] MEDS ORDERED: REFRIGERATED ANITBIOTICS ONE (21:11)
[2017-01-29] MEDS: INSULIN SLIDING SCALE (NOVOLOG) 1 VIAL SQ SCH ×5 (02:57→22:32)
[2017-01-29] MEDS: METRONIDAZOLE 500 MG PREMIXED 100 ML IVPB SCH ×3 (02:57→17:40)
[2017-01-29 09:15] LABS: BASOPHIL 0.4 % (0-2.0); EOSINOPHIL 0.2 % (0-4.5); MCH 32.6 pg (25.7-33.7); MCHC 34.5 g/dl (32.0-36.0); MEAN CELL VOLUME 94.6 fl (80-96); MEAN PLT VOLUME 8.2 fl (7.5-11.1); NEUTROPHILS 84.8 % (42.8-82.8); PLATELET COUNT 193 K/MM3 (134-434); RDW 13.6 % (11.6-15.6); WHITE BLOOD COUNT 7.7 K/mm3 (4.0-10.8)
--- NOTE | 2017-01-29 09:24 | PN ---
Progress Note, Physician Chief Complaint: less pain History of Present Illness: doesn't feel toxic anymore. just very weak. wants to go to bathroom. some pain near incisions. - Current Medication List Current Medications: Active Medications Acetaminophen (Tylenol -) 650 mg PO Q6H PRN PRN Reason: FEVER OR PAIN Last Admin: 01/28/17 11:00 Dose: 650 mg Enoxaparin Sodium (Lovenox -) 40 mg SQ DAILY [facility] Last Admin: 01/28/17 10:07 Dose: 40 mg Fentanyl (Sublimaze Injection -) 25 mcg IVPUSH [id number] PRN PRN Reason: PAIN Stop: 01/30/17 11:44 Hydromorphone HCl (Dilaudid Injection -) 1 mg IVPB Q4H PRN PRN Reason: PAIN Vancomycin HCl 1,250 mg/ (Dextrose) 250 mls @ 250 mls/hr IVPB BID ROGER PRN Reason: Protocol Last Admin: 01/28/17 22:26 Dose: 250 mls/hr Ertapenem 1 gm/ Sodium (Chloride) 50 mls @ 50 mls/hr IVPB DAILY ROGER PRN Reason: Protocol Last Admin: 01/28/17 10:07 Dose: 50 mls/hr Metronidazole (Flagyl 500mg Premixed Ivpb -) 100 mls @ 100 mls/hr IVPB Q8H-IV ROGER Last Admin: 01/29/17 02:57 Dose: 100 mls/hr Insulin Aspart (Novolog Vial Sliding Scale -) 1 vial SQ ACHS ROGER PRN Reason: Protocol Last Admin: 01/29/17 06:41 Dose: 2 units Losartan Potassium (Cozaar -) 100 mg PO DAILY [facility] Last Admin: 01/28/17 10:05 Dose: 100 mg Oxycodone/Acetaminophen (Percocet 5/325 -) 2 combo PO Q4H PRN PRN Reason: PAIN LEVEL 6-10 Oxycodone/Acetaminophen (Percocet 5/325 -) 1 combo PO Q4H PRN PRN Reason: PAIN LEVEL 1-5 - Objective Vital Signs: Vital Signs Temperature 99.9 F H 01/29/17 06:58 Pulse Rate 97 H 01/29/17 06:58 Respiratory Rate 18 01/29/17 06:58 Blood Pressure 133/69 01/29/17 06:58 O2 Sat by Pulse Oximetry (%) 99 01/29/17 06:58 Constitutional: Yes: No Distress, Calm Eyes: Yes: Conjunctiva Clear, EOM Intact HENT: Yes: Atraumatic, Normocephalic Neck: Yes: Supple, Trachea Midline Cardiovascular: Yes: Regular Rate and Rhythm Respiratory: Yes: Regular Gastrointestinal: Yes: Soft. No: Distention, Tenderness ...Rectal Exam: Yes: Other (in left lateral decubitus position, josh drains in place. +dark red erythema around incisions. some skin breakdown. patient with small to moderate amount of soft stool on pad and around wound.) Genitourinary: No: Bladder Distention, Mae Present Musculoskeletal: No: Back Pain, Joint Stiffness Extremities: No: Calf Tenderness, Erythema Integumentary: Yes: Erythema, Skin Tear. No: Rash Wound/Incision: Yes: Draining, Reddened, Excoriated Neurological: Yes: Alert, Oriented Psychiatric: Yes: Alert, Oriented Labs: INR, PTT INR 1.38 (0.82-1.09) H 01/26/17 19:15 Problem List - Problems (1) Abscess of buttock Assessment/Plan: s/p I&D cont to keep in hospital to monitor wound (fatou part closer to labia). suspect skin color is likely some ischemia but would just let that demarcate. if worsens may need to go back to OR for now recommend cleaning the stool off of it and frequent dressing changes as needed await cx Code(s): L02.31 - CUTANEOUS ABSCESS OF BUTTOCK (2) Diabetes Code(s): E11.9 - TYPE 2 DIABETES MELLITUS WITHOUT COMPLICATIONS (3) Hyperglycemia Code(s): R73.9 - HYPERGLYCEMIA, UNSPECIFIED
[2017-01-29] MEDS ORDERED: PT OWN MED DRAWER 7, Y5N ONE (09:27)
[2017-01-29 09:31] LABS: ALBUMIN 2.1 g/dl (3.5-5.0); ALK PHOS 62 U/L (32-92); ANION GAP 7 (8-16); BILIRUBIN,TOTAL 0.7 mg/dl (0.2-1.0); CALCIUM 8.5 mg/dl (8.4-10.2); CO2 22 mmol/L (22-28); CREATININE 0.6 mg/dl (0.6-1.3); GLUCOSE,RANDOM 180 mg/dl (74-106); MAGNESIUM 1.8 mg/dL (1.8-2.4); SGOT/AST 37 U/L (10-42); SGPT/ALT 25 U/L (10-40); TOT PROT 5.9 g/dl (6.4-8.3)
[2017-01-29] MEDS: ENOXAPARIN NA (PORCINE) 40 MG/0.4 ML DISP.SYRIN SQ SCH (09:41)
[2017-01-29] MEDS: VANCOMYCIN 1,250 MG in DEXTROSE 5%-WATER - 250 ML IVPB SCH ×2 (09:41→22:12)
[2017-01-29] MEDS: ERTAPENEM SODIUM 1 GM in SODIUM CHLORIDE 50 ML IVPB SCH (09:41)
[2017-01-29] MEDS: LOSARTAN POTASSIUM 50 MG TABLET (FP) PO SCH (09:58)
[2017-01-29] MEDS: ACETAMINOPHEN 325 MG TABLET (FP) PO PRN (10:00)
--- NOTE | 2017-01-29 10:07 | PN ---
Progress Note, Physician History of Present Illness: Awake, alert Complains of perineal pain Low grade temp WBC improved Cultures pending - Current Medication List Current Medications: Active Medications Acetaminophen (Tylenol -) 650 mg PO Q6H PRN PRN Reason: FEVER OR PAIN Last Admin: 01/28/17 11:00 Dose: 650 mg Enoxaparin Sodium (Lovenox -) 40 mg SQ DAILY [facility] Last Admin: 01/29/17 09:41 Dose: 40 mg Fentanyl (Sublimaze Injection -) 25 mcg IVPUSH [id number] PRN PRN Reason: PAIN Stop: 01/30/17 11:44 Hydromorphone HCl (Dilaudid Injection -) 1 mg IVPB Q4H PRN PRN Reason: PAIN Vancomycin HCl 1,250 mg/ (Dextrose) 250 mls @ 250 mls/hr IVPB BID ROGER PRN Reason: Protocol Last Admin: 01/29/17 09:41 Dose: 250 mls/hr Ertapenem 1 gm/ Sodium (Chloride) 50 mls @ 50 mls/hr IVPB DAILY ROGER PRN Reason: Protocol Last Admin: 01/29/17 09:41 Dose: 50 mls/hr Metronidazole (Flagyl 500mg Premixed Ivpb -) 100 mls @ 100 mls/hr IVPB Q8H-IV ROGER Last Admin: 01/29/17 09:41 Dose: 100 mls/hr Insulin Aspart (Novolog Vial Sliding Scale -) 1 vial SQ ACHS ROGER PRN Reason: Protocol Last Admin: 01/29/17 06:41 Dose: 2 units Losartan Potassium (Cozaar -) 100 mg PO DAILY [facility] Last Admin: 01/29/17 09:58 Dose: 100 mg Oxycodone/Acetaminophen (Percocet 5/325 -) 2 combo PO Q4H PRN PRN Reason: PAIN LEVEL 6-10 Oxycodone/Acetaminophen (Percocet 5/325 -) 1 combo PO Q4H PRN PRN Reason: PAIN LEVEL 1-5 - Objective Vital Signs: Vital Signs Temperature 99.9 F H 01/29/17 06:58 Pulse Rate 97 H 01/29/17 06:58 Respiratory Rate 18 01/29/17 06:58 Blood Pressure 133/69 01/29/17 06:58 O2 Sat by Pulse Oximetry (%) 99 01/29/17 06:58 Constitutional: Yes: No Distress Eyes: Yes: Conjunctiva Clear Cardiovascular: Yes: Regular Rate and Rhythm, S1, S2 Respiratory: Yes: CTA Bilaterally Gastrointestinal: Yes: Normal Bowel Sounds, Soft. No: Tenderness Genitourinary: Yes: Other (surgical wound packed) Edema: No Labs: CBC, BMP 01/29/17 08:00 01/29/17 07:00 INR, PTT INR 1.38 (0.82-1.09) H 01/26/17 19:15 Assessment/Plan S/P I&D buttock abscess Sepsis secondary to soft tissue infection Lactic acidosis Diabetes mellitus Antibiotic allergies Await cultures Continue vancomycin/ ertapenem/ flagyl
--- NOTE | 2017-01-29 11:04 | PN ---
Physical Exam: SUBJECTIVE: Patient seen and examined, reports generalized weakness denies any tactile fever OBJECTIVE:61 year-old woman with a significant PMH of HTN, NIDDM, [place] Palsy, and celiac disease. Admitted for severe sepsis secondary to right buttock abscess. S/P I&D 01/27/2017 Vital Signs Period Temp Pulse Resp BP Sys/Sloan Pulse Ox Last 24 Hr 98.6 F-99.9 F 91-97 18-20 116-133/57-69 96-99 GENERAL: The patient is awake, alert, and fully oriented, in no acute distress. HEAD: Normal with no signs of trauma. EYES: PERRL, extraocular movements intact, sclera anicteric, conjunctiva clear. No ptosis. ENT: Ears normal, nares patent, oropharynx clear without exudates, moist mucous membranes. NECK: Trachea midline, full range of motion, supple. LUNGS: Breath sounds equal, clear to auscultation bilaterally, no wheezes, no crackles, no accessory muscle use. HEART: Regular rate and rhythm, S1, S2 without murmur, rub or gallop. ABDOMEN: Soft, nontender, nondistended, normoactive bowel sounds, no guarding, no rebound, no hepatosplenomegaly, no masses. : four surgical incisions noted [place] drains in place EXTREMITIES: 2+ pulses, warm, well-perfused, no edema. erythema noted, patient incontinent of stool NEUROLOGICAL: Cranial nerves II through XII grossly intact. Normal speech, gait not observed. PSYCH: Normal mood, normal affect. SKIN: Warm, dry, normal turgor, no rashes or lesions noted Laboratory Results - last 24 hr 01/26/17 01/28/17 01/28/17 23:04 12:00 16:34 WBC RBC Hgb Hct MCV MCHC RDW Plt Count MPV Neutrophils % Lymphocytes % Monocytes % Eosinophils % Basophils % Sodium Potassium Chloride Carbon Dioxide Anion Gap BUN Creatinine Creat Clearance w eGFR POC Glucometer [phone] 260 Random Glucose Calcium Magnesium Total Bilirubin AST ALT Alkaline Phosphatase Total Protein Albumin Vancomycin Trough 01/28/17 01/28/17 01/29/17 21:00 22:33 06:01 WBC RBC Hgb Hct MCV MCHC RDW Plt Count MPV Neutrophils % Lymphocytes % Monocytes % Eosinophils % Basophils % Sodium Potassium Chloride Carbon Dioxide Anion Gap BUN Creatinine Creat Clearance w eGFR POC Glucometer 243 166 Random Glucose Calcium Magnesium Total Bilirubin AST ALT Alkaline Phosphatase Total Protein Albumin Vancomycin Trough 10.990 H 01/29/17 01/29/17 07:00 08:00 WBC 7.7 D RBC 3.34 L Hgb 10.9 Hct 31.5 L MCV 94.6 MCHC 34.5 RDW 13.6 Plt Count 193 MPV 8.2 Neutrophils % 84.8 H Lymphocytes % 6.3 L D Monocytes % 8.3 D Eosinophils % 0.2 D Basophils % 0.4 Sodium 134 L Potassium 4.0 Chloride 105 Carbon Dioxide 22 Anion Gap 7 L BUN 14 D Creatinine 0.6 Creat Clearance w eGFR > 60 POC Glucometer Random Glucose 180 H Calcium 8.5 Magnesium 1.8 Total Bilirubin 0.7 D AST 37 D ALT 25 Alkaline Phosphatase 62 Total Protein 5.9 L D Albumin 2.1 L D Vancomycin Trough Active Medications Generic Name Dose Route Start Last Admin Trade Name Freq PRN Reason Stop Dose Admin Acetaminophen 650 mg 01/27/17 01:44 01/29/17 10:00 Tylenol - PO 650 mg Q6H PRN Administration FEVER OR PAIN Enoxaparin Sodium 40 mg 01/28/17 10:00 01/29/17 09:41 Lovenox - SQ 40 mg DAILY [facility] Administration Fentanyl 25 mcg 01/27/17 11:43 Sublimaze Injection - IVPUSH 01/30/17 11:44 [id number] PRN PAIN Hydromorphone HCl 1 mg 01/27/17 11:14 Dilaudid Injection - IVPB Q4H PRN PAIN Vancomycin HCl 1,250 mg/ 250 mls @ 250 mls/hr 01/27/17 10:00 01/29/17 09:41 Dextrose IVPB 250 mls/hr BID [facility] Administration Protocol Ertapenem 1 gm/ Sodium 50 mls @ 50 mls/hr 01/27/17 10:00 01/29/17 09:41 Chloride IVPB 50 mls/hr DAILY [facility] Administration Protocol Metronidazole 100 mls @ 100 mls/hr 01/27/17 19:00 01/29/17 09:41 Flagyl 500mg Premixed Ivpb - IVPB 100 mls/hr Q8H-IV [facility] Administration Insulin Aspart 1 vial 01/27/17 07:00 01/29/17 06:41 Novolog Vial Sliding Scale - SQ 2 units ACHS [facility] Administration Protocol Losartan Potassium 100 mg 01/27/17 10:00 01/29/17 09:58 Cozaar - PO 100 mg DAILY [facility] Administration Oxycodone/Acetaminophen 2 combo 01/27/17 11:14 Percocet 5/325 - PO Q4H PRN PAIN LEVEL 6-10 Oxycodone/Acetaminophen 1 combo 01/27/17 11:45 Percocet 5/325 - PO Q4H PRN PAIN LEVEL 1-5 Microbiology 01/28/17 11:00 Abscess Gram Stain - Final 01/28/17 11:00 Abscess Wound Culture - Preliminary 01/28/17 11:00 Abscess Gram Stain - Final 01/28/17 11:00 Abscess Wound Culture - Preliminary 01/27/17 13:09 Buttock - Right Gram Stain - Final 01/27/17 13:09 Buttock - Right Wound Culture - Final Staphylococcus Coagulase Neg 01/26/17 19:15 Blood - Peripheral Venous Blood Culture - Preliminary NO GROWTH OBTAINED AFTER 48 HOURS, INCUBATION TO CONTINUE FOR 3 DAYS. 01/26/17 19:15 Blood - Peripheral Venous Blood Culture - Preliminary NO GROWTH OBTAINED AFTER 48 HOURS, INCUBATION TO CONTINUE FOR 3 DAYS. 01/27/17 01:00 Nares - Right Nares MRSA Screen - Final NO MRSA ISOLATED 01/27/17 00:10 Nares - Mrsa Screen - Left MRSA Screen - Final NO MRSA ISOLATED 01/26/17 23:00 Urine - Urine Clean Catch Urine Culture - Final NO GROWTH OBTAINED IMAGING: CT pelvis without contrast: Moderate degree superficial subcutaneous layer light is in region of right Buttocks, localized skin thickening and inflammatory stranding in the subcutaneous fat, no abscess noted ASSESSMENT/PLAN: 1) Severe sepsis secondary to necrotizing right buttock abscess s/p I&D of right buttock January 27 (Hon) - pt afebrile, no leukocytosis noted - -contiue Ertapenem (day #3), metronidazole (day #3), and vanc (day #3) - wound culture Staphylococcus aureus preliminary pending intraoperative culture - ID consulted and following 2) uncontrolled nIDDM - Hemoglobin A1c 12.0 - elevated fingersticks start Levemir 10 units subcutaneous at bedtime - Continue fingersticks before meals and at bedtime with insulin sliding scale 3) Hypertension - BP at goal - restart loosartan F/E/N Diet: diabetic diet Electrolytes: replete as indicated Nutrition: diabetic diet DVT prophylaxis: lovenox, oob, ambulation Dispo: continues to require inpatient care. Full code. Visit type - Emergency Visit Emergency Visit: Yes ED Registration Date: 01/26/17 Care time: The patient presented to the Emergency Department on the above date and was hospitalized for further evaluation of their emergent condition. - New Patient This patient is new to me today: No - Critical Care Critical Care patient: No - Discharge Referral Referred to [facility] Med P.C.: No
[2017-01-29] MEDS ORDERED: INSULIN (NOVOLOG) ASPART 100 UNITS/ML 10ML VIAL ONE ×2 (11:55→16:26)
--- NOTE | 2017-01-29 14:13 | PN ---
Progress Note (short form) - Note Progress Note: Anesthesiology Post-op S/p I&D under spinal anesthesia. Pt. states that though she feels a bit weak still, she is otherwise doing well. Pain is controlled. VSS. No residual spinal effects. No apparent anesthetic issues.
[2017-01-29] MEDS: LACTOBACILLUS ACIDOPHILUS 1 EACH TAB (FP) PO SCH (15:14)
[2017-01-29] MEDS ORDERED: ZOLPIDEM TARTRATE 5 MG TABLET PO PRN (15:15)
[2017-01-29] MEDS ORDERED: INSULIN DETEMIR 100 UNITS/ML MDV SQ SCH (22:00)
[2017-01-29] MEDS ORDERED: REFRIGERATED ANITBIOTICS ONE (22:07)
[2017-01-29] MEDS: MAGNESIUM OXIDE 400 MG TABLET (FP) PO SCH (22:31)
[2017-01-30] MEDS: METRONIDAZOLE 500 MG PREMIXED 100 ML IVPB SCH ×2 (02:00→09:43)
[2017-01-30] MEDS: ACETAMINOPHEN 325 MG TABLET (FP) PO PRN ×2 (04:17→16:12)
[2017-01-30] MEDS: INSULIN SLIDING SCALE (NOVOLOG) 1 VIAL SQ SCH ×4 (06:17→22:39)
[2017-01-30] MEDS ORDERED: INSULIN (NOVOLOG) ASPART 100 UNITS/ML 10ML VIAL ONE ×4 (06:21→22:34)
[2017-01-30 08:45] LABS: BASOPHIL 0.2 % (0-2.0); EOSINOPHIL 0.6 % (0-4.5); MCH 32.6 pg (25.7-33.7); MCHC 34.1 g/dl (32.0-36.0); MEAN CELL VOLUME 95.5 fl (80-96); MEAN PLT VOLUME 8.1 fl (7.5-11.1); NEUTROPHILS 74.8 % (42.8-82.8); PLATELET COUNT 206 K/MM3 (134-434); RDW 14.1 % (11.6-15.6); WHITE BLOOD COUNT 6.7 K/mm3 (4.0-10.8)
[2017-01-30 09:02] LABS: ALBUMIN 1.9 g/dl (3.5-5.0); ALK PHOS 70 U/L (32-92); ANION GAP 9 (8-16); BILIRUBIN,TOTAL 0.6 mg/dl (0.2-1.0); CALCIUM 8.6 mg/dl (8.4-10.2); CO2 23 mmol/L (22-28); CREATININE 0.6 mg/dl (0.6-1.3); GLUCOSE,RANDOM 280 mg/dl (74-106); MAGNESIUM 1.7 mg/dL (1.8-2.4); PHOSPHOROUS 3.1 mg/dl (2.5-4.6); SGOT/AST 37 U/L (10-42); SGPT/ALT 25 U/L (10-40); TOT PROT 5.8 g/dl (6.4-8.3)
[2017-01-30] MEDS ORDERED: POTASSIUM CHLORIDE TABS 20 MEQ TABLET.ER (FP) PO ONE (09:30)
--- NOTE | 2017-01-30 09:30 | PN ---
Progress Note, Physician History of Present Illness: Awake, alert Complains of perineal pain No fever/ chills Tolerating antibiotics Wound c/s prelim SCN - Current Medication List Current Medications: Active Medications Acetaminophen (Tylenol -) 650 mg PO Q6H PRN PRN Reason: FEVER OR PAIN Last Admin: 01/30/17 04:17 Dose: 650 mg Enoxaparin Sodium (Lovenox -) 40 mg SQ DAILY [facility] Last Admin: 01/29/17 09:41 Dose: 40 mg Hydromorphone HCl (Dilaudid Injection -) 1 mg IVPB Q4H PRN PRN Reason: PAIN Vancomycin HCl 1,250 mg/ (Dextrose) 250 mls @ 250 mls/hr IVPB BID [facility] PRN Reason: Protocol Last Admin: 01/29/17 22:12 Dose: 250 mls/hr Ertapenem 1 gm/ Sodium (Chloride) 50 mls @ 50 mls/hr IVPB DAILY [facility] PRN Reason: Protocol Last Admin: 01/29/17 09:41 Dose: 50 mls/hr Metronidazole (Flagyl 500mg Premixed Ivpb -) 100 mls @ 100 mls/hr IVPB Q8H-IV [facility] Last Admin: 01/30/17 02:00 Dose: 100 mls/hr Insulin Aspart (Novolog Vial Sliding Scale -) 1 vial SQ ACHS [facility] PRN Reason: Protocol Last Admin: 01/30/17 06:17 Dose: 4 units Insulin Detemir (Levemir Vial) 10 units SQ HS [facility] Last Admin: 01/29/17 22:31 Dose: 10 units Lactobacillus Acidophilus (Bacid -) 1 tab PO DAILY [facility] Last Admin: 01/29/17 15:14 Dose: 1 tab Losartan Potassium (Cozaar -) 100 mg PO DAILY [facility] Last Admin: 01/29/17 09:58 Dose: 100 mg Magnesium Oxide (Mag-Ox -) 400 mg PO BID [facility] Last Admin: 01/29/17 22:31 Dose: 400 mg Magnesium Sulfate (Magnesium Sulfate) 1 gm IVPB ONCE ONE Stop: 01/30/17 09:46 Oxycodone/Acetaminophen (Percocet 5/325 -) 2 combo PO Q4H PRN PRN Reason: PAIN LEVEL 6-10 Oxycodone/Acetaminophen (Percocet 5/325 -) 1 combo PO Q4H PRN PRN Reason: PAIN LEVEL 1-5 Potassium Chloride (K-Dur -) 40 meq PO ONCE ONE Stop: 01/30/17 09:31 Zolpidem Tartrate (Ambien -) 5 mg PO HS PRN PRN Reason: INSOMNIA - Objective Vital Signs: Vital Signs Temperature 97.4 F L 01/30/17 04:49 Pulse Rate 97 H 01/30/17 04:49 Respiratory Rate 18 01/30/17 04:49 Blood Pressure 111/55 01/30/17 04:49 O2 Sat by Pulse Oximetry (%) 99 01/30/17 08:30 Constitutional: Yes: No Distress Eyes: Yes: Conjunctiva Clear Cardiovascular: Yes: Regular Rate and Rhythm, S1, S2 Respiratory: Yes: CTA Bilaterally Gastrointestinal: Yes: Normal Bowel Sounds, Soft Genitourinary: Yes: Other (drains in place + perirectal induration No fluctuance) Edema: No Labs: CBC, BMP 01/30/17 07:57 01/30/17 07:57 INR, PTT INR 1.38 (0.82-1.09) H 01/26/17 19:15 Assessment/Plan S/P I&D buttock abscess Sepsis secondary to soft tissue infection Lactic acidosis Diabetes mellitus Antibiotic allergies Await final cultures Continue vancomycin/ ertapenem/ flagyl
[2017-01-30] MEDS: MAGNESIUM OXIDE 400 MG TABLET (FP) PO SCH ×2 (09:42→22:39)
[2017-01-30] MEDS: VANCOMYCIN 1,250 MG in DEXTROSE 5%-WATER - 250 ML IVPB SCH ×2 (09:43→22:06)
[2017-01-30] MEDS: ENOXAPARIN NA (PORCINE) 40 MG/0.4 ML DISP.SYRIN SQ SCH (09:43)
[2017-01-30] MEDS: LACTOBACILLUS ACIDOPHILUS 1 EACH TAB (FP) PO SCH (09:43)
[2017-01-30] MEDS: LOSARTAN POTASSIUM 50 MG TABLET (FP) PO SCH (09:43)
[2017-01-30] MEDS: ERTAPENEM SODIUM 1 GM in SODIUM CHLORIDE 50 ML IVPB SCH (09:43)
[2017-01-30] MEDS ORDERED: MAGNESIUM SULF 50% (8.12 MEQ/2 ML-1 GM VIAL) IVPB ONE (09:45)
--- NOTE | 2017-01-30 10:01 | EKG ---
Test Reason : Blood Pressure : / mmHG Vent. Rate : 097 BPM Atrial Rate : 097 BPM P-R Int : 168 ms QRS Dur : 086 ms QT Int : 380 ms P-R-T Axes : 059 -33 087 degrees QTc Int : 482 ms NORMAL SINUS RHYTHM POSSIBLE LEFT ATRIAL ENLARGEMENT LEFT AXIS DEVIATION T WAVE ABNORMALITY, CONSIDER LATERAL ISCHEMIA NO PREVIOUS ECGS AVAILABLE Confirmed by MD ALFONSO MARJORY ([id number]) on 01/30/2017 10:01:20 AM Referred By: MD MCGRAW Confirmed By:INESSA ALFONSO MD
--- NOTE | 2017-01-30 12:41 | PN ---
Physical Exam: SUBJECTIVE: Patient seen and examined, patient reports chills and pain to the incision site. OBJECTIVE:61 year-old woman with a significant PMH of HTN, NIDDM, [place] Palsy, and celiac disease. Admitted for severe sepsis secondary to right buttock abscess. S/P I&D 01/27/2017 Vital Signs Period Temp Pulse Resp BP Sys/Sloan Pulse Ox Last 24 Hr 97.4 F-99.1 F 89-106 18-19 111-132/52-64 94-99 physical examination GENERAL: The patient is awake, alert, and fully oriented, in no acute distress. HEAD: Normal with no signs of trauma. EYES: PERRL, extraocular movements intact, sclera anicteric, conjunctiva clear. No ptosis. ENT: Ears normal, nares patent, oropharynx clear without exudates, moist mucous membranes. NECK: Trachea midline, full range of motion, supple. LUNGS: Breath sounds equal, clear to auscultation bilaterally, no wheezes, no crackles, no accessory muscle use. HEART: Regular rate and rhythm, S1, S2 without murmur, rub or gallop. ABDOMEN: Soft, nontender, nondistended, normoactive bowel sounds, no guarding, no rebound, no hepatosplenomegaly, no masses. : four surgical incisions noted [place] drains in place 3 cm of induration noted above the right gluetal fold EXTREMITIES: 2+ pulses, warm, well-perfused, no edema. erythema noted, patient incontinent of stool NEUROLOGICAL: Cranial nerves II through XII grossly intact. Normal speech, gait not observed. PSYCH: Normal mood, normal affect. SKIN: Warm, dry, normal turgor, no rashes or lesions noted Laboratory Results - last 24 hr 01/29/17 01/29/17 01/30/17 16:32 22:09 06:12 WBC RBC Hgb Hct MCV MCHC RDW Plt Count MPV Neutrophils % Lymphocytes % Monocytes % Eosinophils % Basophils % Sodium Potassium Chloride Carbon Dioxide Anion Gap BUN Creatinine Creat Clearance w eGFR POC Glucometer 254 300 251 Random Glucose Calcium Phosphorus Magnesium Total Bilirubin AST ALT Alkaline Phosphatase Total Protein Albumin 01/30/17 01/30/17 01/30/17 07:57 07:57 11:07 WBC 6.7 RBC 3.45 L Hgb 11.2 Hct 32.9 MCV 95.5 MCHC 34.1 RDW 14.1 Plt Count 206 MPV 8.1 Neutrophils % 74.8 Lymphocytes % 14.0 D Monocytes % 10.4 H Eosinophils % 0.6 D Basophils % 0.2 Sodium 137 Potassium 3.6 Chloride 105 Carbon Dioxide 23 Anion Gap 9 BUN 11 D Creatinine 0.6 Creat Clearance w eGFR > 60 POC Glucometer 291 Random Glucose 280 H D Calcium 8.6 Phosphorus 3.1 D Magnesium 1.7 L Total Bilirubin 0.6 AST 37 ALT 25 Alkaline Phosphatase 70 Total Protein 5.8 L Albumin 1.9 L Active Medications Generic Name Dose Route Start Last Admin Trade Name Freq PRN Reason Stop Dose Admin Acetaminophen 650 mg 01/27/17 01:44 01/30/17 04:17 Tylenol - PO 650 mg Q6H PRN Administration FEVER OR PAIN Enoxaparin Sodium 40 mg 01/28/17 10:00 01/30/17 09:43 Lovenox - SQ 40 mg DAILY [facility] Administration Hydromorphone HCl 1 mg 01/27/17 11:14 Dilaudid Injection - IVPB Q4H PRN PAIN Vancomycin HCl 1,250 mg/ 250 mls @ 250 mls/hr 01/27/17 10:00 01/30/17 09:43 Dextrose IVPB 250 mls/hr BID [facility] Administration Protocol Ertapenem 1 gm/ Sodium 50 mls @ 50 mls/hr 01/27/17 10:00 01/30/17 09:43 Chloride IVPB 50 mls/hr DAILY [facility] Administration Protocol Metronidazole 100 mls @ 100 mls/hr 01/27/17 19:00 01/30/17 09:43 Flagyl 500mg Premixed Ivpb - IVPB 100 mls/hr Q8H-IV [facility] Administration Insulin Aspart 1 vial 01/30/17 11:47 Novolog Vial Sliding Scale - SQ ACHS [facility] Protocol Insulin Detemir 12 units 01/30/17 22:00 Levemir Vial SQ HS [facility] Lactobacillus Acidophilus 1 tab 01/29/17 14:00 01/30/17 09:43 Bacid - PO 1 tab DAILY [facility] Administration Losartan Potassium 100 mg 01/27/17 10:00 01/30/17 09:43 Cozaar - PO 100 mg DAILY [facility] Administration Magnesium Oxide 400 mg 01/29/17 22:00 01/30/17 09:42 Mag-Ox - PO 400 mg BID [facility] Administration Oxycodone/Acetaminophen 2 combo 01/27/17 11:14 Percocet 5/325 - PO Q4H PRN PAIN LEVEL 6-10 Oxycodone/Acetaminophen 1 combo 01/27/17 11:45 Percocet 5/325 - PO Q4H PRN PAIN LEVEL 1-5 Zolpidem Tartrate 5 mg 01/29/17 15:15 Ambien - PO HS PRN INSOMNIA Microbiology 01/28/17 11:00 Abscess Gram Stain - Final 01/28/17 11:00 Abscess Wound Culture - Preliminary Yeast Like Organism Pending Organism Pending Organism#2 01/28/17 11:00 Abscess Gram Stain - Final 01/28/17 11:00 Abscess Wound Culture - Preliminary Yeast Like Organism Pending Organism Pending Organism#2 01/26/17 19:15 Blood - Peripheral Venous Blood Culture - Preliminary NO GROWTH OBTAINED AFTER 72 HOURS, INCUBATION TO CONTINUE FOR 2 DAYS. 01/26/17 19:15 Blood - Peripheral Venous Blood Culture - Preliminary NO GROWTH OBTAINED AFTER 72 HOURS, INCUBATION TO CONTINUE FOR 2 DAYS. 01/27/17 13:09 Buttock - Right Gram Stain - Final 01/27/17 13:09 Buttock - Right Wound Culture - Final Staphylococcus Coagulase Neg 01/27/17 01:00 Nares - Right Nares MRSA Screen - Final NO MRSA ISOLATED 01/27/17 00:10 Nares - Mrsa Screen - Left MRSA Screen - Final NO MRSA ISOLATED 01/26/17 23:00 Urine - Urine Clean Catch Urine Culture - Final NO GROWTH OBTAINED IMAGING: CT pelvis without contrast: Moderate degree superficial subcutaneous layer light is in region of right Buttocks, localized skin thickening and inflammatory stranding in the subcutaneous fat, no abscess noted ASSESSMENT/PLAN: 1) Severe sepsis secondary to necrotizing right buttock abscess s/p I&D of right buttock January 27 () - pt afebrile, no leukocytosis noted - Finding on physical exam discussed with surgeon Dr. Angulo, patient is scheduled for OR tomorrow for incision and drainage - wound culture 01/27, noted pending intraoperative culture - -contiue Ertapenem (day #4), metronidazole (day #4), and vanc (day #4) - ID consulted and following 2) uncontrolled nIDDM - Hemoglobin A1c 12.0 -fingersticks remains elevated increase Levemir 12 units subcutaneous at bedtime - Continue fingersticks before meals and at bedtime with insulin sliding scale 3) Hypertension - BP at goal - continue loosartan F/E/N Diet: diabetic diet -->nothing by mouth after midnight, IV fluids Electrolytes: replete as indicated Nutrition: diabetic diet DVT prophylaxis: hold a.m. dose of lovenox, oob, ambulation Dispo: continues to require inpatient care. Full code. Visit type - Emergency Visit Emergency Visit: Yes ED Registration Date: 01/26/17 Care time: The patient presented to the Emergency Department on the above date and was hospitalized for further evaluation of their emergent condition. - New Patient This patient is new to me today: No - Critical Care Critical Care patient: No - Discharge Referral Referred to [facility] Med P.C.: No
--- NOTE | 2017-01-30 13:24 | PN ---
Progress Note, Physician Chief Complaint: pain History of Present Illness: still having some chills/sweats. feels new bump. - Current Medication List Current Medications: Active Medications Acetaminophen (Tylenol -) 650 mg PO Q6H PRN PRN Reason: FEVER OR PAIN Last Admin: 01/30/17 04:17 Dose: 650 mg Enoxaparin Sodium (Lovenox -) 40 mg SQ DAILY [facility] Last Admin: 01/30/17 09:43 Dose: 40 mg Hydromorphone HCl (Dilaudid Injection -) 1 mg IVPB Q4H PRN PRN Reason: PAIN Vancomycin HCl 1,250 mg/ (Dextrose) 250 mls @ 250 mls/hr IVPB BID [facility] PRN Reason: Protocol Last Admin: 01/30/17 09:43 Dose: 250 mls/hr Ertapenem 1 gm/ Sodium (Chloride) 50 mls @ 50 mls/hr IVPB DAILY [facility] PRN Reason: Protocol Last Admin: 01/30/17 09:43 Dose: 50 mls/hr Metronidazole (Flagyl 500mg Premixed Ivpb -) 100 mls @ 100 mls/hr IVPB Q8H-IV [facility] Last Admin: 01/30/17 09:43 Dose: 100 mls/hr Potassium Chloride/Sodium Chloride (1/2ns+20meq Kcl) 1,000 mls @ 100 mls/hr IV ASDIR [facility] Insulin Aspart (Novolog Vial Sliding Scale -) 1 vial SQ ACHS [facility] PRN Reason: Protocol Insulin Detemir (Levemir Vial) 12 units SQ HS [facility] Lactobacillus Acidophilus (Bacid -) 1 tab PO DAILY [facility] Last Admin: 01/30/17 09:43 Dose: 1 tab Losartan Potassium (Cozaar -) 100 mg PO DAILY [facility] Last Admin: 01/30/17 09:43 Dose: 100 mg Magnesium Oxide (Mag-Ox -) 400 mg PO BID [facility] Last Admin: 01/30/17 09:42 Dose: 400 mg Oxycodone/Acetaminophen (Percocet 5/325 -) 2 combo PO Q4H PRN PRN Reason: PAIN LEVEL 6-10 Oxycodone/Acetaminophen (Percocet 5/325 -) 1 combo PO Q4H PRN PRN Reason: PAIN LEVEL 1-5 Zolpidem Tartrate (Ambien -) 5 mg PO HS PRN PRN Reason: INSOMNIA - Objective Vital Signs: Vital Signs Temperature 97.4 F L 01/30/17 04:49 Pulse Rate 97 H 01/30/17 04:49 Respiratory Rate 18 01/30/17 04:49 Blood Pressure 111/55 01/30/17 04:49 O2 Sat by Pulse Oximetry (%) 99 01/30/17 08:30 Constitutional: Yes: No Distress, Calm Eyes: Yes: Conjunctiva Clear, EOM Intact HENT: Yes: Atraumatic, Normocephalic Neck: Yes: Supple, Trachea Midline Cardiovascular: Yes: Regular Rate and Rhythm Respiratory: Yes: Regular, CTA Bilaterally Gastrointestinal: Yes: Soft. No: Distention, Tenderness ...Rectal Exam: Yes: Other (more induration near labial area with tenderness and blanching erythema. drains in place.) Genitourinary: No: CVA Tenderness - Left, CVA Tenderness - Right Musculoskeletal: No: Joint Stiffness, Joint Swelling Extremities: No: Calf Tenderness, Erythema Integumentary: Yes: Erythema. No: Rash Wound/Incision: Yes: Draining Neurological: Yes: Alert, Oriented Psychiatric: Yes: Alert, Oriented Labs: CBC, BMP 01/30/17 07:57 01/30/17 07:57 INR, PTT INR 1.38 (0.82-1.09) H 01/26/17 19:15 Problem List - Problems (1) Abscess of buttock Assessment/Plan: npo after mn for EUA and likely more debridement tomorrow wound grew yeast. f/u ID will do in lithotomy position tomorrow given location Code(s): L02.31 - CUTANEOUS ABSCESS OF BUTTOCK (2) Diabetes Code(s): E11.9 - TYPE 2 DIABETES MELLITUS WITHOUT COMPLICATIONS (3) Hyperglycemia Code(s): R73.9 - HYPERGLYCEMIA, UNSPECIFIED
[2017-01-30] MEDS: FLUCONAZOLE 200 MG/D5W 100 ML IVPB SCH (16:11)
--- NOTE | 2017-01-30 16:20 | PATH ---
Surgical Pathology Report Patient Name: YOLANDE NGUYEN Med. Rec. #: [id number] /Age/Gender: 1955 (Age: 61) / F Account: [id number] Location: [facility] Taken: 01/27/2017 Received: 01/27/2017 Reported: 01/30/2017 Physicians: Maldonado Angulo MD Specimen(s) Received RIGHT BUTTACK TISSUE Clinical History Right buttock abscess Final Diagnosis BUTTOCK, RIGHT, TISSUE, EXCISION: SKIN AND UNDERLYING SUBCUTANEOUS TISSUE SHOWING MARKED ACUTE INFLAMMATION AND FAT NECROSIS. Electronically Signed Salma Rosen M.D. Gross Description Received in formalin, labeled with the patient's name and indicated on the requisition to be tissue from the right buttock, is a 1.0 x 0.6 cm stcak, elliptical portion of skin excised to depth of 0.9 cm. The epidermal surface is unremarkable. The specimen is trisected and entirely submitted in one cassette. 01/29/201701/29/2017
[2017-01-30] MEDS ORDERED: REFRIGERATED ANITBIOTICS ONE (21:48)
[2017-01-30] MEDS ORDERED: INSULIN DETEMIR 100 UNITS/ML MDV SQ ONE (22:15)
[2017-01-30] MEDS: INSULIN DETEMIR 100 UNITS/ML MDV SQ SCH (22:39)
[2017-01-31] MEDS: SODIUM CHLORIDE 0.45%/POT 1,000 ML IV SCH (00:30)
[2017-01-31] MEDS: INSULIN SLIDING SCALE (NOVOLOG) 1 VIAL SQ SCH ×4 (06:50→21:35)
--- NOTE | 2017-01-31 08:44 | PN ---
Progress Note, Physician History of Present Illness: Awake,alert C/O R buttock and R vulvar pain/ swelling Afebrile WBC WNL Wound c/s mixed organisms, including yeast Fluconazole added yesterday - Current Medication List Current Medications: Active Medications Acetaminophen (Tylenol -) 650 mg PO Q6H PRN PRN Reason: FEVER OR PAIN Last Admin: 01/30/17 16:12 Dose: 650 mg Enoxaparin Sodium (Lovenox -) 40 mg SQ DAILY [facility] Last Admin: 01/30/17 09:43 Dose: 40 mg Hydromorphone HCl (Dilaudid Injection -) 1 mg IVPB Q4H PRN PRN Reason: PAIN Vancomycin HCl 1,250 mg/ (Dextrose) 250 mls @ 250 mls/hr IVPB BID [facility] PRN Reason: Protocol Last Admin: 01/30/17 22:06 Dose: 250 mls/hr Ertapenem 1 gm/ Sodium (Chloride) 50 mls @ 50 mls/hr IVPB DAILY [facility] PRN Reason: Protocol Last Admin: 01/30/17 09:43 Dose: 50 mls/hr Potassium Chloride/Sodium Chloride (1/2ns+20meq Kcl) 1,000 mls @ 100 mls/hr IV ASDIR [facility] Last Admin: 01/31/17 00:30 Dose: 100 mls/hr Fluconazole (Diflucan 200 Mg/D5w Premixed Ivpb -) 100 mls @ 100 mls/hr IVPB DAILY [facility] Last Admin: 01/30/17 16:11 Dose: 100 mls/hr Insulin Aspart (Novolog Vial Sliding Scale -) 1 vial SQ ACHS [facility] PRN Reason: Protocol Last Admin: 01/31/17 06:50 Dose: Not Given Insulin Detemir (Levemir Vial) 12 units SQ HS [facility] Last Admin: 01/30/17 22:39 Dose: Not Given Lactobacillus Acidophilus (Bacid -) 1 tab PO DAILY [facility] Last Admin: 01/30/17 09:43 Dose: 1 tab Losartan Potassium (Cozaar -) 100 mg PO DAILY [facility] Last Admin: 01/30/17 09:43 Dose: 100 mg Magnesium Oxide (Mag-Ox -) 400 mg PO BID [facility] Last Admin: 01/30/17 22:39 Dose: 400 mg Oxycodone/Acetaminophen (Percocet 5/325 -) 2 combo PO Q4H PRN PRN Reason: PAIN LEVEL 6-10 Oxycodone/Acetaminophen (Percocet 5/325 -) 1 combo PO Q4H PRN PRN Reason: PAIN LEVEL 1-5 Zolpidem Tartrate (Ambien -) 5 mg PO HS PRN PRN Reason: INSOMNIA - Objective Vital Signs: Vital Signs Temperature 98.8 F 01/31/17 02:00 Pulse Rate 85 01/31/17 02:00 Respiratory Rate 17 01/31/17 02:00 Blood Pressure 137/78 01/31/17 02:00 O2 Sat by Pulse Oximetry (%) 97 01/31/17 02:43 Constitutional: Yes: No Distress Eyes: Yes: Conjunctiva Clear Cardiovascular: Yes: Regular Rate and Rhythm, S1, S2 Respiratory: Yes: CTA Bilaterally Gastrointestinal: Yes: Normal Bowel Sounds, Soft, Abdomen, Obese. No: Tenderness Integumentary: Yes: Other (+ R buttock induration; josh drains in place + R vulvar swelling) Labs: CBC, BMP 01/30/17 07:57 01/30/17 07:57 INR, PTT INR 1.38 (0.82-1.09) H 01/26/17 19:15 Assessment/Plan S/P I&D buttock abscess- polymicrobial Sepsis secondary to soft tissue infection Lactic acidosis Diabetes mellitus Antibiotic allergies Continue vancomycin/ ertapenem/ fluconazole Repeat I&D in OR today
[2017-01-31 09:58] LABS: BASOPHIL 0.3 % (0-2.0); EOSINOPHIL 1.2 % (0-4.5); MCH 32.8 pg (25.7-33.7); MCHC 34.1 g/dl (32.0-36.0); MEAN CELL VOLUME 96.2 fl (80-96); MEAN PLT VOLUME 8.3 fl (7.5-11.1); PLATELET COUNT 241 K/MM3 (134-434); RDW 14.3 % (11.6-15.6); WHITE BLOOD COUNT 7.3 K/mm3 (4.0-10.8)
[2017-01-31 10:07] LABS: ANION GAP 9 (8-16); CALCIUM 8.4 mg/dl (8.4-10.2); CO2 24 mmol/L (22-28); CREATININE 0.5 mg/dl (0.6-1.3); GLUCOSE,RANDOM 208 mg/dl (74-106); MAGNESIUM 1.7 mg/dL (1.8-2.4); PHOSPHOROUS 3.1 mg/dl (2.5-4.6)
[2017-01-31] MEDS ORDERED: MAGNESIUM SULFATE 2 GM in SODIUM CHLORIDE 100 ML IVPB ONE (10:26)
[2017-01-31] MEDS: FLUCONAZOLE 200 MG/D5W 100 ML IVPB SCH (10:55)
[2017-01-31] MEDS: ERTAPENEM SODIUM 1 GM in SODIUM CHLORIDE 50 ML IVPB SCH (10:56)
[2017-01-31] MEDS: MAGNESIUM OXIDE 400 MG TABLET (FP) PO SCH (10:56)
[2017-01-31] MEDS: VANCOMYCIN 1,250 MG in DEXTROSE 5%-WATER - 250 ML IVPB SCH ×2 (10:56→21:36)
[2017-01-31] MEDS: LACTOBACILLUS ACIDOPHILUS 1 EACH TAB (FP) PO SCH (10:56)
[2017-01-31] MEDS: LOSARTAN POTASSIUM 50 MG TABLET (FP) PO SCH (10:56)
[2017-01-31] MEDS ORDERED: MAGNESIUM SULF 50% (8.12 MEQ/2 ML-1 GM VIAL) IVPB ONE (11:30)
[2017-01-31] MEDS ORDERED: MIDAZOLAM HCL 2 MG/2 ML SINGLE DOSE VIAL ONE (13:23)
[2017-01-31] MEDS ORDERED: HYDROmorphone HCL/PF 1 MG/ML VIAL (FOR PYXIS CHARGING ONLY) ONE (13:58)
--- NOTE | 2017-01-31 14:02 | PN ---
Physical Exam: SUBJECTIVE: Patient seen and examined, reports ongoing pain to buttocks and vulva, reports chills OBJECTIVE:61 year-old woman with a significant PMH of HTN, NIDDM, [place] Palsy, and celiac disease. Admitted for severe sepsis secondary to right buttock abscess. S/P I&D 01/27/2017 Vital Signs Period Temp Pulse Resp BP Sys/Sloan Pulse Ox Last 24 Hr 98.3 F-98.8 F 82-95 17-18 107-137/56-78 96-98 hysical examination GENERAL: The patient is awake, alert, and fully oriented, in no acute distress. HEAD: Normal with no signs of trauma. EYES: PERRL, extraocular movements intact, sclera anicteric, conjunctiva clear. No ptosis. ENT: Ears normal, nares patent, oropharynx clear without exudates, moist mucous membranes. NECK: Trachea midline, full range of motion, supple. LUNGS: Breath sounds equal, clear to auscultation bilaterally, no wheezes, no crackles, no accessory muscle use. HEART: Regular rate and rhythm, S1, S2 without murmur, rub or gallop. ABDOMEN: Soft, nontender, nondistended, normoactive bowel sounds, no guarding, no rebound, no hepatosplenomegaly, no masses. : four surgical incisions noted Zavalla drains in place 5 cm of induration noted above the right gluetal fold EXTREMITIES: 2+ pulses, warm, well-perfused, no edema. erythema noted, NEUROLOGICAL: Cranial nerves II through XII grossly intact. Normal speech, gait not observed. PSYCH: Normal mood, normal affect. SKIN: Warm, dry, normal turgor, no rashes or lesions noted Laboratory Results - last 24 hr 01/30/17 01/30/17 01/31/17 16:09 21:54 06:42 WBC RBC Hgb Hct MCV MCHC RDW Plt Count MPV Neutrophils % Lymphocytes % Monocytes % Eosinophils % Basophils % Sodium Potassium Chloride Carbon Dioxide Anion Gap BUN Creatinine POC Glucometer 232 212 184 Random Glucose Calcium Phosphorus Magnesium 01/31/17 01/31/17 01/31/17 08:55 08:55 12:16 WBC 7.3 RBC 3.35 L Hgb 11.0 Hct 32.2 L MCV 96.2 H MCHC 34.1 RDW 14.3 Plt Count 241 MPV 8.3 Neutrophils % 72.0 Lymphocytes % 17.1 D Monocytes % 9.4 Eosinophils % 1.2 D Basophils % 0.3 Sodium 137 Potassium 4.3 Chloride 104 Carbon Dioxide 24 Anion Gap 9 BUN 9 Creatinine 0.5 L POC Glucometer 181 Random Glucose 208 H D Calcium 8.4 Phosphorus 3.1 Magnesium 1.7 L Active Medications Generic Name Dose Route Start Last Admin Trade Name Freq PRN Reason Stop Dose Admin Acetaminophen 650 mg 01/27/17 01:44 01/30/17 16:12 Tylenol - PO 650 mg Q6H PRN Administration FEVER OR PAIN Enoxaparin Sodium 40 mg 01/28/17 10:00 01/30/17 09:43 Lovenox - SQ 40 mg DAILY ROGER Administration Hydromorphone HCl 1 mg 01/27/17 11:14 Dilaudid Injection - IVPB Q4H PRN PAIN Vancomycin HCl 1,250 mg/ 250 mls @ 250 mls/hr 01/27/17 10:00 01/31/17 10:56 Dextrose IVPB 250 mls/hr BID ROGER Administration Protocol Ertapenem 1 gm/ Sodium 50 mls @ 50 mls/hr 01/27/17 10:00 01/31/17 10:56 Chloride IVPB 50 mls/hr DAILY ROGER Administration Protocol Potassium Chloride/Sodium Chloride 1,000 mls @ 100 mls/hr 01/31/17 00:00 00:30 1/2ns+20meq Kcl IV 100 mls/hr ASDIR ROGER Administration Fluconazole 100 mls @ 100 mls/hr 01/30/17 15:45 01/31/17 10:55 Diflucan 200 Mg/D5w Premixed Ivpb - IVPB 100 mls/hr DAILY [facility]OGER Administration Insulin Aspart 1 vial 01/30/17 11:47 01/31/17 06:50 Novolog Vial Sliding Scale - SQ Not Given ACHS [facility] Protocol Insulin Detemir 12 units 01/30/17 22:00 01/30/17 22:39 Levemir Vial SQ Not Given HS ROGER Lactobacillus Acidophilus 1 tab 01/29/17 14:00 01/31/17 10:56 Bacid - PO Not Given DAILY ROGER Losartan Potassium 100 mg 01/27/17 10:00 01/31/17 10:56 Cozaar - PO Not Given DAILY [facility]OG[facility] Magnesium Oxide 400 mg 01/29/17 22:00 01/31/17 10:56 Mag-Ox - PO Not Given BID ROGER Oxycodone/Acetaminophen 2 combo 01/27/17 11:14 Percocet 5/325 - PO Q4H PRN PAIN LEVEL 6-10 Oxycodone/Acetaminophen 1 combo 01/27/17 11:45 Percocet 5/325 - PO Q4H PRN PAIN LEVEL 1-5 Zolpidem Tartrate 5 mg 01/29/17 15:15 Ambien - PO HS PRN INSOMNIA Microbiology 01/26/17 19:15 Blood - Peripheral Venous Blood Culture - Preliminary NO GROWTH OBTAINED AFTER 96 HOURS, INCUBATION TO CONTINUE FOR 1 DAYS. 01/26/17 19:15 Blood - Peripheral Venous Blood Culture - Preliminary NO GROWTH OBTAINED AFTER 96 HOURS, INCUBATION TO CONTINUE FOR 1 DAYS. 01/28/17 11:00 Abscess Gram Stain - Final 01/28/17 11:00 Abscess Wound Culture - Preliminary Yeast Like Organism Pending Organism Pending Organism#2 01/28/17 11:00 Abscess Gram Stain - Final 01/28/17 11:00 Abscess Wound Culture - Preliminary Yeast Like Organism Pending Organism Pending Organism#2 01/27/17 13:09 Buttock - Right Gram Stain - Final 01/27/17 13:09 Buttock - Right Wound Culture - Final Staphylococcus Coagulase Neg 01/27/17 01:00 Nares - Right Nares MRSA Screen - Final NO MRSA ISOLATED 01/27/17 00:10 Nares - Mrsa Screen - Left MRSA Screen - Final NO MRSA ISOLATED 01/26/17 23:00 Urine - Urine Clean Catch Urine Culture - Final NO GROWTH OBTAINED IMAGING: CT pelvis without contrast: Moderate degree superficial subcutaneous layer light is in region of right Buttocks, localized skin thickening and inflammatory stranding in the subcutaneous fat, no abscess noted ASSESSMENT/PLAN: 1) Severe sepsis secondary to necrotizing right buttock abscess s/p I&D of right buttock January 27 ([facility]) - pt afebrile, no leukocytosis noted - pt pending or today for i&d - wound culture 01/27, noted pending intraoperative culture - -contiue Ertapenem (day #5), metronidazole (day #5), vanc (day #5) and difllucan (day 2) - ID consulted and following 2) uncontrolled nIDDM - Hemoglobin A1c 12.0 -continue Levemir 12 units subcutaneous at bedtime - Continue fingersticks before meals and at bedtime with insulin sliding scale 3) Hypertension - BP at goal - continue loosartan F/E/N Diet: nothing by mouth , IV fluids Electrolytes: replete as indicated Nutrition: diabetic diet DVT prophylaxis: hold a.m. dose of lovenox, oob, ambulation Dispo: continues to require inpatient care. Full code. Visit type - Emergency Visit Emergency Visit: Yes ED Registration Date: 01/26/17 Care time: The patient presented to the Emergency Department on the above date and was hospitalized for further evaluation of their emergent condition. - New Patient This patient is new to me today: No - Critical Care Critical Care patient: No - Discharge Referral Referred to [facility] No
[2017-01-31] MEDS ORDERED: PROPOFOL 20 ML ONE (14:21)
--- NOTE | 2017-01-31 14:32 | OP ---
Operative Note - Note: Operative Date: 01/31/17 Pre-Operative Diagnosis: necrotizing soft tissue infection buttock/labia Operation: incision and drainge and debridement of infection Findings: infection appears to have spread laterally and superiorly. Post-Operative Diagnosis: Same as Pre-op Surgeon: Maldonado Angulo Anesthesia: General Estimated Blood Loss (mls): 100
[2017-01-31] MEDS ORDERED: ONDANSETRON 4 MG/2 ML VIAL IVPUSH PRN (14:39)
[2017-01-31] MEDS ORDERED: HYDROmorphone *PCA* 10MG/50ML DISP.SYRIN PCA SCH (14:45)
[2017-01-31] MEDS ORDERED: LACTATED RINGERS SOLUTION 1,000 ML IV SCH (14:45)
[2017-01-31] MEDS ORDERED: INSULIN (NOVOLOG) ASPART 100 UNITS/ML 10ML VIAL ONE (15:21)
[2017-01-31] MEDS ORDERED: REFRIGERATED ANITBIOTICS ONE (21:21)
[2017-01-31] MEDS: INSULIN DETEMIR 100 UNITS/ML MDV SQ SCH (21:36)
[2017-02-01] MEDS: SODIUM CHLORIDE 0.45%/POT 1,000 ML IV SCH
[2017-02-01] MEDS: INSULIN SLIDING SCALE (NOVOLOG) 1 VIAL SQ SCH ×4 (06:24→21:36)
[2017-02-01] MEDS: LACTOBACILLUS ACIDOPHILUS 1 EACH TAB (FP) PO SCH (09:55)
[2017-02-01] MEDS: ERTAPENEM SODIUM 1 GM in SODIUM CHLORIDE 50 ML IVPB SCH (09:55)
[2017-02-01] MEDS: VANCOMYCIN 1,250 MG in DEXTROSE 5%-WATER - 250 ML IVPB SCH ×2 (09:55→21:36)
[2017-02-01] MEDS: LOSARTAN POTASSIUM 50 MG TABLET (FP) PO SCH (09:55)
[2017-02-01] MEDS: FLUCONAZOLE 200 MG/D5W 100 ML IVPB SCH (09:55)
--- NOTE | 2017-02-01 10:07 | PN ---
Progress Note, Physician Chief Complaint: s/p IandD rectal abscess under general anesthesia History of Present Illness: post op day one - Current Medication List Current Medications: Active Medications Acetaminophen (Tylenol -) 650 mg PO Q6H PRN PRN Reason: FEVER OR PAIN Last Admin: 01/30/17 16:12 Dose: 650 mg Diphenhydramine HCl (Benadryl Injection -) 12.5 mg IVPUSH ONCE PRN PRN Reason: FOR ITCHING Enoxaparin Sodium (Lovenox -) 40 mg SQ DAILY [facility] Last Admin: 01/30/17 09:43 Dose: 40 mg Fentanyl (Sublimaze Injection -) 50 mcg IVPUSH [id number] PRN PRN Reason: PAIN Stop: 02/03/17 14:43 Vancomycin HCl 1,250 mg/ (Dextrose) 250 mls @ 250 mls/hr IVPB BID ROGER PRN Reason: Protocol Last Admin: 01/31/17 21:36 Dose: 250 mls/hr Ertapenem 1 gm/ Sodium (Chloride) 50 mls @ 50 mls/hr IVPB DAILY [facility]ER PRN Reason: Protocol Last Admin: 01/31/17 10:56 Dose: 50 mls/hr Fluconazole (Diflucan 200 Mg/D5w Premixed Ivpb -) 100 mls @ 100 mls/hr IVPB DAILY [facility] Last Admin: 01/31/17 10:55 Dose: 100 mls/hr Insulin Aspart (Novolog Vial Sliding Scale -) 1 vial SQ ACHS [facility] PRN Reason: Protocol Last Admin: 02/01/17 06:24 Dose: 6 units Insulin Detemir (Levemir Vial) 12 units SQ HS [facility] Last Admin: 01/31/17 21:36 Dose: 12 units Lactobacillus Acidophilus (Bacid -) 1 tab PO DAILY [facility] Last Admin: 01/31/17 10:56 Dose: Not Given Losartan Potassium (Cozaar -) 100 mg PO DAILY [facility] Last Admin: 01/31/17 10:56 Dose: Not Given Zolpidem Tartrate (Ambien -) 5 mg PO HS PRN PRN Reason: INSOMNIA - Objective Vital Signs: Vital Signs Temperature 97.3 F L 02/01/17 06:00 Pulse Rate 91 H 02/01/17 09:53 Respiratory Rate 19 02/01/17 06:00 Blood Pressure 134/77 02/01/17 09:53 O2 Sat by Pulse Oximetry (%) 99 02/01/17 08:00 Constitutional: Yes: Well Nourished Cardiovascular: Yes: WNL Respiratory: Yes: WNL, On Nasal O2 Gastrointestinal: Yes: Soft Labs: CBC, BMP 01/31/17 08:55 01/31/17 08:55 INR, PTT INR 1.38 (0.82-1.09) H 01/26/17 19:15 Assessment/Plan Patient did not use PSYCH THERAPIST much over night, reported only three demands, tolerating PO, refused oxycodone for oral pain control secondary to extreme constipation in the past, will order tramadol and stop PSYCH THERAPIST. No other complaints from anesthetic. Dept of anesthesia will sign off care at this time
--- NOTE | 2017-02-01 10:14 | PN ---
Progress Note, Physician History of Present Illness: S/P repeat debridement No c/o pain Afebrile Tolerating antibiotics - Current Medication List Current Medications: Active Medications Acetaminophen (Tylenol -) 650 mg PO Q6H PRN PRN Reason: FEVER OR PAIN Last Admin: 01/30/17 16:12 Dose: 650 mg Diphenhydramine HCl (Benadryl Injection -) 12.5 mg IVPUSH ONCE PRN PRN Reason: FOR ITCHING Enoxaparin Sodium (Lovenox -) 40 mg SQ DAILY [facility] Last Admin: 01/30/17 09:43 Dose: 40 mg Fentanyl (Sublimaze Injection -) 50 mcg IVPUSH [id number] PRN PRN Reason: PAIN Stop: 02/03/17 14:43 Vancomycin HCl 1,250 mg/ (Dextrose) 250 mls @ 250 mls/hr IVPB BID ROGER PRN Reason: Protocol Last Admin: 01/31/17 21:36 Dose: 250 mls/hr Ertapenem 1 gm/ Sodium (Chloride) 50 mls @ 50 mls/hr IVPB DAILY [facility]ER PRN Reason: Protocol Last Admin: 01/31/17 10:56 Dose: 50 mls/hr Fluconazole (Diflucan 200 Mg/D5w Premixed Ivpb -) 100 mls @ 100 mls/hr IVPB DAILY [facility] Last Admin: 01/31/17 10:55 Dose: 100 mls/hr Insulin Aspart (Novolog Vial Sliding Scale -) 1 vial SQ ACHS [facility]OGER PRN Reason: Protocol Last Admin: 02/01/17 06:24 Dose: 6 units Insulin Detemir (Levemir Vial) 12 units SQ HS [facility] Last Admin: 01/31/17 21:36 Dose: 12 units Lactobacillus Acidophilus (Bacid -) 1 tab PO DAILY [facility] Last Admin: 01/31/17 10:56 Dose: Not Given Losartan Potassium (Cozaar -) 100 mg PO DAILY [facility] Last Admin: 01/31/17 10:56 Dose: Not Given Tramadol HCl (Ultram -) 50 mg PO Q4H PRN PRN Reason: PAIN Zolpidem Tartrate (Ambien -) 5 mg PO HS PRN PRN Reason: INSOMNIA - Objective Vital Signs: Vital Signs Temperature 97.3 F L 02/01/17 06:00 Pulse Rate 91 H 02/01/17 09:53 Respiratory Rate 19 02/01/17 06:00 Blood Pressure 134/77 02/01/17 09:53 O2 Sat by Pulse Oximetry (%) 99 02/01/17 08:00 Constitutional: Yes: No Distress Eyes: Yes: Conjunctiva Clear Cardiovascular: Yes: Regular Rate and Rhythm, S1, S2 Respiratory: Yes: CTA Bilaterally Gastrointestinal: Yes: Normal Bowel Sounds, Soft. No: Tenderness Genitourinary: Yes: Other (post operative dressing in place, buttock/ perineal area) Labs: CBC, BMP 01/31/17 08:55 01/31/17 08:55 INR, PTT INR 1.38 (0.82-1.09) H 01/26/17 19:15 Assessment/Plan S/P I&D buttock abscess- polymicrobial Sepsis secondary to soft tissue infection Lactic acidosis Diabetes mellitus Antibiotic allergies Continue vancomycin/ ertapenem/ fluconazole Await operative cultures
[2017-02-01] MEDS: ENOXAPARIN NA (PORCINE) 40 MG/0.4 ML DISP.SYRIN SQ SCH (10:15)
--- NOTE | 2017-02-01 10:46 | PN ---
Progress Note, Physician Chief Complaint: feels alot better History of Present Illness: alot less pain s/p surgery. no fever chills. - Current Medication List Current Medications: Active Medications Acetaminophen (Tylenol -) 650 mg PO Q6H PRN PRN Reason: FEVER OR PAIN Last Admin: 01/30/17 16:12 Dose: 650 mg Diphenhydramine HCl (Benadryl Injection -) 12.5 mg IVPUSH ONCE PRN PRN Reason: FOR ITCHING Enoxaparin Sodium (Lovenox -) 40 mg SQ DAILY [facility] Last Admin: 02/01/17 10:15 Dose: 40 mg Fentanyl (Sublimaze Injection -) 50 mcg IVPUSH [id number] PRN PRN Reason: PAIN Stop: 02/03/17 14:43 Vancomycin HCl 1,250 mg/ (Dextrose) 250 mls @ 250 mls/hr IVPB BID ROGER PRN Reason: Protocol Last Admin: 02/01/17 09:55 Dose: 250 mls/hr Ertapenem 1 gm/ Sodium (Chloride) 50 mls @ 50 mls/hr IVPB DAILY [facility]ER PRN Reason: Protocol Last Admin: 02/01/17 09:55 Dose: 50 mls/hr Fluconazole (Diflucan 200 Mg/D5w Premixed Ivpb -) 100 mls @ 100 mls/hr IVPB DAILY [facility] Last Admin: 02/01/17 09:55 Dose: 100 mls/hr Insulin Aspart (Novolog Vial Sliding Scale -) 1 vial SQ ACHS ROGER PRN Reason: Protocol Last Admin: 02/01/17 06:24 Dose: 6 units Insulin Detemir (Levemir Vial) 12 units SQ HS [facility] Last Admin: 01/31/17 21:36 Dose: 12 units Lactobacillus Acidophilus (Bacid -) 1 tab PO DAILY [facility] Last Admin: 02/01/17 09:55 Dose: 1 tab Losartan Potassium (Cozaar -) 100 mg PO DAILY [facility] Last Admin: 02/01/17 09:55 Dose: 100 mg Tramadol HCl (Ultram -) 50 mg PO Q4H PRN PRN Reason: PAIN Zolpidem Tartrate (Ambien -) 5 mg PO HS PRN PRN Reason: INSOMNIA - Objective Vital Signs: Vital Signs Temperature 97.3 F L 02/01/17 06:00 Pulse Rate 91 H 02/01/17 09:53 Respiratory Rate 19 02/01/17 06:00 Blood Pressure 134/77 02/01/17 09:53 O2 Sat by Pulse Oximetry (%) 99 02/01/17 08:00 Constitutional: Yes: No Distress, Calm Eyes: Yes: Conjunctiva Clear, EOM Intact HENT: Yes: Atraumatic, Normocephalic Neck: Yes: Supple, Trachea Midline Cardiovascular: Yes: Regular Rate and Rhythm Respiratory: Yes: Regular, CTA Bilaterally Gastrointestinal: Yes: Normal Bowel Sounds, Soft ...Rectal Exam: Yes: Other (wound packing removed. serosanguinous drainage. wound base with brownish tissue. no granulation. some tenderness/induration anterolaterally to most lateral aspect of incision. re-packed with mónica. abd dsg applied.) Genitourinary: Yes: Youngblood Present. No: CVA Tenderness - Left, CVA Tenderness - Right Musculoskeletal: No: Joint Stiffness, Joint Swelling Extremities: No: Calf Tenderness, Erythema Integumentary: Yes: Bruising, Erythema Wound/Incision: Yes: Dressing Removed, Draining Neurological: Yes: Alert, Oriented Psychiatric: Yes: Alert, Oriented Labs: CBC, BMP 01/31/17 08:55 01/31/17 08:55 INR, PTT INR 1.38 (0.82-1.09) H 01/26/17 19:15 Problem List - Problems (1) Abscess of buttock Assessment/Plan: s/p re incision / drainage /debridement add dakins to dressing wound care clinically improved await new cultures cont wound care cont youngblood for now Code(s): L02.31 - CUTANEOUS ABSCESS OF BUTTOCK (2) Diabetes Code(s): E11.9 - TYPE 2 DIABETES MELLITUS WITHOUT COMPLICATIONS (3) Hyperglycemia Code(s): R73.9 - HYPERGLYCEMIA, UNSPECIFIED
--- NOTE | 2017-02-01 11:27 | PN ---
[id number] [id number] OBJECTIVE:61 year-old woman with a significant PMH of HTN, NIDDM, [place] Palsy, and celiac disease. Admitted for severe sepsis secondary to right buttock abscess. S/P I&D 01/27/2017 and s/p I&D 01/31/17 ([facility]) Vital Signs Period Temp Pulse Resp BP Sys/Sloan Pulse Ox Last 24 Hr 97.3 F-99.1 F 67-92 16-20 97-134/55-77 96-99 GENERAL: The patient is awake, alert, and fully oriented, in no acute distress. HEAD: Normal with no signs of trauma. EYES: PERRL, extraocular movements intact, sclera anicteric, conjunctiva clear. No ptosis. ENT: Ears normal, nares patent, oropharynx clear without exudates, moist mucous membranes. NECK: Trachea midline, full range of motion, supple. LUNGS: Breath sounds equal, clear to auscultation bilaterally, no wheezes, no crackles, no accessory muscle use. HEART: Regular rate and rhythm, S1, S2 without murmur, rub or gallop. ABDOMEN: Soft, nontender, nondistended, normoactive bowel sounds, no guarding, no rebound, no hepatosplenomegaly, no masses. : vertical incision noted to vulva extending due to buttocks, josh drain in place, packing in place EXTREMITIES: 2+ pulses, warm, well-perfused, no edema. NEUROLOGICAL: Cranial nerves II through XII grossly intact. Normal speech, gait not observed. PSYCH: Normal mood, normal affect. SKIN: Warm, dry, normal turgor, no rashes or lesions noted Laboratory Results - last 24 hr 01/31/17 01/31/17 01/31/17 08:55 12:16 14:57 POC Glucometer 181 176 Vancomycin Trough 13.281 H 01/31/17 02/01/17 21:17 06:01 POC Glucometer 254 274 Vancomycin Trough Active Medications Generic Name Dose Route Start Last Admin Trade Name Freq PRN Reason Stop Dose Admin Acetaminophen 650 mg 01/27/17 01:44 01/30/17 16:12 Tylenol - PO 650 mg Q6H PRN Administration FEVER OR PAIN Diphenhydramine HCl 12.5 mg 01/31/17 14:39 Benadryl Injection - IVPUSH ONCE PRN FOR ITCHING Enoxaparin Sodium 40 mg 01/28/17 10:00 02/01/17 10:15 Lovenox - SQ 40 mg DAILY [facility] Administration Fentanyl 50 mcg 01/31/17 14:42 Sublimaze Injection - IVPUSH 02/03/17 14:43 [id number] PRN PAIN Vancomycin HCl 1,250 mg/ 250 mls @ 250 mls/hr 01/27/17 10:00 02/01/17 09:55 Dextrose IVPB 250 mls/hr BID ROGER Administration Protocol Ertapenem 1 gm/ Sodium 50 mls @ 50 mls/hr 01/27/17 10:00 02/01/17 09:55 Chloride IVPB 50 mls/hr DAILY [facility]OGER Administration Protocol Fluconazole 100 mls @ 100 mls/hr 01/30/17 15:45 02/01/17 09:55 Diflucan 200 Mg/D5w Premixed Ivpb - IVPB 100 mls/hr DAILY [facility] Administration Insulin Aspart 1 vial 01/30/17 11:47 02/01/17 06:24 Novolog Vial Sliding Scale - SQ 6 units ACHS [facility]ER Administration Protocol Insulin Detemir 12 units 01/30/17 22:00 01/31/17 21:36 Levemir Vial SQ 12 units HS [facility]OGER Administration Lactobacillus Acidophilus 1 tab 01/29/17 14:00 02/01/17 09:55 Bacid - PO 1 tab DAILY [facility] Administration Losartan Potassium 100 mg 01/27/17 10:00 02/01/17 09:55 Cozaar - PO 100 mg DAILY [facility] Administration Nystatin 1 applic 02/01/17 11:30 Nystop Powder - TP DAILY ROGER Sodium Hypochlorite 1 applic 02/01/17 10:45 Dakin's Solution 0.25% (Half-Strength) - NR BID ROGER Tramadol HCl 50 mg 02/01/17 10:02 Ultram - PO Q4H PRN PAIN Zolpidem Tartrate 5 mg 01/29/17 15:15 Ambien - PO HS PRN INSOMNIA Microbiology 01/28/17 11:00 Abscess Gram Stain - Final 01/28/17 11:00 Abscess Wound Culture - Final Yeast Like Organism Propionibacterium Granulosum Non Spore Form Gram Pos Meghann 01/26/17 19:15 Blood - Peripheral Venous Blood Culture - Final NO GROWTH AFTER 5 DAYS INCUBATION 01/26/17 19:15 Blood - Peripheral Venous Blood Culture - Final NO GROWTH AFTER 5 DAYS INCUBATION 01/28/17 11:00 Abscess Gram Stain - Final 01/28/17 11:00 Abscess Wound Culture - Final Yeast Like Organism Propionibacterium Granulosum Non Spore Form Gram Pos Meghann 01/27/17 13:09 Buttock - Right Gram Stain - Final 01/27/17 13:09 Buttock - Right Wound Culture - Final Staphylococcus Coagulase Neg 01/27/17 01:00 Nares - Right Nares MRSA Screen - Final NO MRSA ISOLATED 01/27/17 00:10 Nares - Mrsa Screen - Left MRSA Screen - Final NO MRSA ISOLATED 01/26/17 23:00 Urine - Urine Clean Catch Urine Culture - Final NO GROWTH OBTAINED IMAGING: CT pelvis without contrast: Moderate degree superficial subcutaneous layer light is in region of right Buttocks, localized skin thickening and inflammatory stranding in the subcutaneous fat, no abscess noted ASSESSMENT/PLAN: 1) Severe sepsis secondary to necrotizing right buttock abscess s/p I&D of right buttock 01/27 ([facility]) & s/p repeat I&D 01/31 - pt afebrile, no leukocytosis noted - intraoperative culture 01/28, mutiorganism noted, contiue Ertapenem (day #6), metronidazole (day #6), vanc (day #6) and difllucan (day 3) - ID consulted and following 2) uncontrolled nIDDM - Hemoglobin A1c 12.0 - elevated fingerticks increased Levemir 15 units subcutaneous at bedtime - Continue fingersticks before meals and at bedtime with insulin sliding scale 3) Hypertension - BP at goal - continue loosartan F/E/N Diet: diabetic diet Electrolytes: replete as indicated Nutrition: diabetic diet DVT prophylaxis: hold a.m. dose of lovenox, oob, ambulation Dispo: continues to require inpatient care. Full code. Visit type - Emergency Visit Emergency Visit: Yes ED Registration Date: 01/26/17 Care time: The patient presented to the Emergency Department on the above date and was hospitalized for further evaluation of their emergent condition. - New Patient This patient is new to me today: No - Critical Care Critical Care patient: No - Discharge Referral Referred to [facility] No
[2017-02-01] MEDS ORDERED: PT OWN MED DRAWER 7, Y5N ONE (11:35)
[2017-02-01] MEDS ORDERED: INSULIN (NOVOLOG) ASPART 100 UNITS/ML 10ML VIAL ONE ×3 (11:40→21:34)
[2017-02-01] MEDS: NYSTATIN POWDER 100,000 UNITS/GM - 15 GM TOPICAL POWDER TP SCH (12:53)
--- NOTE | 2017-02-01 13:24 | OP ---
DATE OF OPERATION: 01/31/2017 PREOPERATIVE DIAGNOSIS: Necrotizing infection of her buttock and perilabial area. POSTOPERATIVE DIAGNOSIS: Necrotizing infection of her buttock and perilabial area. SURGEON: Twan Angulo MD ANESTHESIA: General with LMA. OPERATIVE NOTE IN DETAIL: Patient was brought to the operating room and placed in the lithotomy position. She was then induced and then given an LMA by the anesthesiologist. She was already on appropriate perioperative antibiotics, She was then prepped and draped in the usual sterile fashion. A time-out was then performed. Upon examination, there was most induration, that was I felt to be new, towards the more anterior 2 incisions, that was near the labia and anterior to the anus. At this point, I placed my finger inside and basically opened up the first 3 incisions and removed the Tracy drain. I then, in the most indurated area, which was lateral to these incisions, I could not use my finger to get to it. However, I made a separate stab incision with electrocautery, and I was able to find more grayish exudate consistent with necrotic tissue and infection. At this point, I then enlarged the incision and irrigated and debrided and used my finger to debride and used the gauze pad to debride any kind of loose necrotic tissue, and investigating posteriorly, it did not seem that there were any new collections or induration. I also extended the incision cephalad onto the labia and deep, and explored this area because there was some erythema there. There was no simba purulence. I actually went deeper into the wound and found more necrotic tissue. However, there was no simba collection. At this point, I then used the pulsed evacuator to help decrease the bacterial and yeast load of this wound, and I used approximately 3 L on the whole wound. I then, secured another Hardin drain for the lateral most incision, and then, I used Kerlix to pack this new longer wound, and then, I placed a Mae catheter under sterile conditions to help the patient because of likely difficulty with dressing changes and pain issues. She is to be going to the floor in stable condition. TWAN ANGULO M.D. RAMOS/[id number]
[2017-02-01 14:09] LABS: ALBUMIN 2.2 g/dl (3.5-5.0); ALK PHOS 79 U/L (32-92); ANION GAP 9 (8-16); BASOPHIL 0.1 % (0-2.0); BILIRUBIN,TOTAL 0.3 mg/dl (0.2-1.0); CALCIUM 8.5 mg/dl (8.4-10.2); CO2 23 mmol/L (22-28); CREATININE 0.6 mg/dl (0.6-1.3); MAGNESIUM 1.7 mg/dL (1.8-2.4); MCH 32.7 pg (25.7-33.7); MCHC 34.2 g/dl (32.0-36.0); MEAN CELL VOLUME 95.5 fl (80-96); MEAN PLT VOLUME 8.3 fl (7.5-11.1); NEUTROPHILS 88.3 % (42.8-82.8); PHOSPHOROUS 3.1 mg/dl (2.5-4.6); PLATELET COUNT 278 K/MM3 (134-434); RDW 14.2 % (11.6-15.6); SGOT/AST 33 U/L (10-42); SGPT/ALT 22 U/L (10-40); TOT PROT 6.6 g/dl (6.4-8.3)
[2017-02-01 14:12] LABS: GLUCOSE,RANDOM 323 mg/dl (74-106)
[2017-02-01] MEDS ORDERED: MAGNESIUM SULF 50% (8.12 MEQ/2 ML-1 GM VIAL) IVPB ONE (14:25)
[2017-02-01] MEDS: SODIUM HYPOCHLORITE 0.25%- 473 ML BULK BOTTLE NR SCH (15:58)
[2017-02-01] MEDS ORDERED: REFRIGERATED ANITBIOTICS ONE (21:33)
[2017-02-01] MEDS: INSULIN DETEMIR 100 UNITS/ML MDV SQ SCH (21:36)
[2017-02-02] MEDS: SODIUM HYPOCHLORITE 0.25%- 473 ML BULK BOTTLE NR SCH ×3 (00:37→22:26)
[2017-02-02] MEDS: traMADol HCL 50 MG TABLET PO PRN ×2 (03:41→08:35)
[2017-02-02] MEDS: INSULIN SLIDING SCALE (NOVOLOG) 1 VIAL SQ SCH ×4 (07:27→22:31)
[2017-02-02] MEDS: ACETAMINOPHEN 325 MG TABLET (FP) PO PRN (08:36)
[2017-02-02 08:47] LABS: MCHC 33.6 g/dl (32.0-36.0); MEAN CELL VOLUME 95.1 fl (80-96); MEAN PLT VOLUME 8.3 fl (7.5-11.1); PLATELET COUNT 301 K/MM3 (134-434); RDW 13.8 % (11.6-15.6); WHITE BLOOD COUNT 9.3 K/mm3 (4.0-10.8)
[2017-02-02 08:48] LABS: ALBUMIN 2.3 g/dl (3.5-5.0); ALK PHOS 105 U/L (32-92); ANION GAP 7 (8-16); BILIRUBIN,TOTAL 0.4 mg/dl (0.2-1.0); CALCIUM 8.8 mg/dl (8.4-10.2); CO2 27 mmol/L (22-28); CREATININE 0.6 mg/dl (0.6-1.3); GLUCOSE,RANDOM 187 mg/dl (74-106); MAGNESIUM 1.8 mg/dL (1.8-2.4); PHOSPHOROUS 3.1 mg/dl (2.5-4.6); SGOT/AST 42 U/L (10-42); SGPT/ALT 28 U/L (10-40); TOT PROT 6.7 g/dl (6.4-8.3)
--- NOTE | 2017-02-02 09:45 | PN ---
Physical Exam: SUBJECTIVE: Patient seen and examined, patient reports much better, denies any tactile fever or chills. OBJECTIVE: patient is a 61 year-old woman with a significant PMH of HTN, NIDDM, [place] Palsy, and celiac disease. Admitted for severe sepsis secondary to right buttock abscess. S/P I&D 01/27/2017 and s/p I&D 01/31/17 ([facility]), pt has noted to have positive multiorganism cultures Vital Signs Period Temp Pulse Resp BP Sys/Sloan Pulse Ox Last 24 Hr 97.7 F-97.9 F 75-91 16-18 107-134/62-77 94-96 physical exam GENERAL: The patient is awake, alert, and fully oriented, in no acute distress. HEAD: Normal with no signs of trauma. EYES: PERRL, extraocular movements intact, sclera anicteric, conjunctiva clear. No ptosis. ENT: Ears normal, nares patent, oropharynx clear without exudates, moist mucous membranes. NECK: Trachea midline, full range of motion, supple. LUNGS: Breath sounds equal, clear to auscultation bilaterally, no wheezes, no crackles, no accessory muscle use. HEART: Regular rate and rhythm, S1, S2 without murmur, rub or gallop. ABDOMEN: Soft, nontender, nondistended, normoactive bowel sounds, no guarding, no rebound, no hepatosplenomegaly, no masses. : vertical incision noted to vulva extending due to buttocks, josh drain in place, packing in place, serrous drainage noted EXTREMITIES: 2+ pulses, warm, well-perfused, no edema. NEUROLOGICAL: Cranial nerves II through XII grossly intact. Normal speech, gait not observed. PSYCH: Normal mood, normal affect. SKIN: Warm, dry, normal turgor, no rashes or lesions noted Laboratory Results - last 24 hr 02/01/17 02/01/17 02/01/17 11:48 13:00 13:00 WBC 9.0 RBC 3.40 L Hgb 11.1 Hct 32.5 MCV 95.5 MCHC 34.2 RDW 14.2 Plt Count 278 MPV 8.3 Neutrophils % 88.3 H D Lymphocytes % 8.3 D Monocytes % 3.3 L Eosinophils % 0.0 D Basophils % 0.1 Sodium 131 L Potassium 4.9 Chloride 99 Carbon Dioxide 23 Anion Gap 9 BUN 12 D Creatinine 0.6 Creat Clearance w eGFR > 60 POC Glucometer 326 Random Glucose 323 H* D Calcium 8.5 Phosphorus 3.1 Magnesium 1.7 L Total Bilirubin 0.3 D AST 33 ALT 22 Alkaline Phosphatase 79 Total Protein 6.6 Albumin 2.2 L 02/01/17 02/01/17 02/02/17 17:04 21:29 06:35 WBC RBC Hgb Hct MCV MCHC RDW Plt Count MPV Neutrophils % Lymphocytes % Monocytes % Eosinophils % Basophils % Sodium Potassium Chloride Carbon Dioxide Anion Gap BUN Creatinine Creat Clearance w eGFR POC Glucometer 244 259 195 Random Glucose Calcium Phosphorus Magnesium Total Bilirubin AST ALT Alkaline Phosphatase Total Protein Albumin 02/02/17 02/02/17 07:30 07:30 WBC 9.3 RBC 3.47 L Hgb 11.1 Hct 33.0 MCV 95.1 MCHC 33.6 RDW 13.8 Plt Count 301 MPV 8.3 Neutrophils % [employer] Lymphocytes % [employer] Monocytes % [employer] Eosinophils % [employer] Basophils % [employer] Sodium 138 Potassium 4.3 Chloride 104 Carbon Dioxide 27 Anion Gap 7 L BUN 14 Creatinine 0.6 Creat Clearance w eGFR > 60 POC Glucometer Random Glucose 187 H D Calcium 8.8 Phosphorus 3.1 Magnesium 1.8 Total Bilirubin 0.4 D AST 42 D ALT 28 D Alkaline Phosphatase 105 H D Total Protein 6.7 Albumin 2.3 L Active Medications Generic Name Dose Route Start Last Admin Trade Name Freq PRN Reason Stop Dose Admin Acetaminophen 650 mg 01/27/17 01:44 02/02/17 08:36 Tylenol - PO 650 mg Q6H PRN Administration FEVER OR PAIN Diphenhydramine HCl 12.5 mg 01/31/17 14:39 Benadryl Injection - IVPUSH ONCE PRN FOR ITCHING Enoxaparin Sodium 40 mg 01/28/17 10:00 02/01/17 10:15 Lovenox - SQ 40 mg DAILY [facility] Administration Fentanyl 50 mcg 01/31/17 14:42 Sublimaze Injection - IVPUSH 02/03/17 14:43 [id number] PRN PAIN Vancomycin HCl 1,250 mg/ 250 mls @ 250 mls/hr 01/27/17 10:00 02/01/17 21:36 Dextrose IVPB 250 mls/hr BID [facility] Administration Protocol Ertapenem 1 gm/ Sodium 50 mls @ 50 mls/hr 01/27/17 10:00 02/01/17 09:55 Chloride IVPB 50 mls/hr DAILY [facility]ER Administration Protocol Fluconazole 100 mls @ 100 mls/hr 01/30/17 15:45 02/01/17 09:55 Diflucan 200 Mg/D5w Premixed Ivpb - IVPB 100 mls/hr DAILY [facility] Administration Insulin Aspart 1 vial 01/30/17 11:47 02/02/17 07:27 Novolog Vial Sliding Scale - SQ 2 units ACHS ROGER Administration Protocol Insulin Detemir 15 units 02/01/17 13:49 02/01/17 21:36 Levemir Vial SQ 15 units HS [facility]ER Administration Lactobacillus Acidophilus 1 tab 01/29/17 14:00 02/01/17 09:55 Bacid - PO 1 tab DAILY [facility] Administration Losartan Potassium 100 mg 01/27/17 10:00 02/01/17 09:55 Cozaar - PO 100 mg DAILY [facility] Administration Nystatin 1 applic 02/01/17 11:30 02/01/17 12:53 Nystop Powder - TP 1 applic DAILY [facility]ER Administration Sodium Hypochlorite 1 applic 02/01/17 10:45 02/02/17 00:37 Dakin's Solution 0.25% (Half-Strength) - NR Not Given BID [facility] Tramadol HCl 50 mg 02/01/17 10:02 02/02/17 08:35 Ultram - PO 50 mg Q4H PRN Administration PAIN Zolpidem Tartrate 5 mg 01/29/17 15:15 Ambien - PO HS PRN INSOMNIA Microbiology 01/31/17 15:30 Wound Gram Stain - Final 01/31/17 15:30 Wound Wound Culture - Preliminary Presumptive Ps Aeruginosa 01/28/17 11:00 Abscess Gram Stain - Final 01/28/17 11:00 Abscess Wound Culture - Final Yeast Like Organism Propionibacterium Granulosum Non Spore Form Gram Pos Meghann 01/26/17 19:15 Blood - Peripheral Venous Blood Culture - Final NO GROWTH AFTER 5 DAYS INCUBATION 01/26/17 19:15 Blood - Peripheral Venous Blood Culture - Final NO GROWTH AFTER 5 DAYS INCUBATION 01/28/17 11:00 Abscess Gram Stain - Final 01/28/17 11:00 Abscess Wound Culture - Final Yeast Like Organism Propionibacterium Granulosum Non Spore Form Gram Pos Meghann 01/27/17 13:09 Buttock - Right Gram Stain - Final 01/27/17 13:09 Buttock - Right Wound Culture - Final Staphylococcus Coagulase Neg 01/27/17 01:00 Nares - Right Nares MRSA Screen - Final NO MRSA ISOLATED 01/27/17 00:10 Nares - Mrsa Screen - Left MRSA Screen - Final NO MRSA ISOLATED 01/26/17 23:00 Urine - Urine Clean Catch Urine Culture - Final NO GROWTH OBTAINED IMAGING: CT pelvis without contrast: Moderate degree superficial subcutaneous layer light is in region of right Buttocks, localized skin thickening and inflammatory stranding in the subcutaneous fat, no abscess noted ASSESSMENT/PLAN: 1) Severe sepsis secondary to necrotizing right buttock abscess s/p I&D of right buttock 01/27 ([facility]) & s/p repeat I&D 01/31 - pt afebrile, no leukocytosis noted - intraoperative culture 01/28, mutiorganism noted, contiue Ertapenem (day #7), metronidazole (day #7), vanc (day # 7) and difllucan (day 4), wound culture presumptive pseudomonas awaiting final - continue packing with Dakin solution twice a day, as per surgeon - ID consulted and following - surgery (Hon) consulted and following 2) uncontrolled nIDDM - Hemoglobin A1c 12.0 - continue Levemir 15 units subcutaneous at bedtime - Continue fingersticks before meals and at bedtime with insulin sliding scale 3) Hypertension - BP at goal - continue loosartan F/E/N Diet: diabetic diet Electrolytes: replete as indicated Nutrition: diabetic diet DVT prophylaxis: hold a.m. dose of lovenox, oob, ambulation Dispo: continues to require inpatient care. Full code. Visit type - Emergency Visit Emergency Visit: Yes ED Registration Date: 01/26/17 Care time: The patient presented to the Emergency Department on the above date and was hospitalized for further evaluation of their emergent condition. - New Patient This patient is new to me today: No - Critical Care Critical Care patient: No - Discharge Referral Referred to [facility] Med P.C.: No
[2017-02-02] MEDS ORDERED: PT OWN MED DRAWER 7, Y5N ONE (10:11)
[2017-02-02] MEDS: VANCOMYCIN 1,250 MG in DEXTROSE 5%-WATER - 250 ML IVPB SCH ×2 (10:19→22:30)
--- NOTE | 2017-02-02 10:19 | PN ---
Progress Note, Physician Chief Complaint: some stinging pain History of Present Illness: she is ambulating. some burning pain with dakins but tolerable. - Current Medication List Current Medications: Active Medications Acetaminophen (Tylenol -) 650 mg PO Q6H PRN PRN Reason: FEVER OR PAIN Last Admin: 02/02/17 08:36 Dose: 650 mg Diphenhydramine HCl (Benadryl Injection -) 12.5 mg IVPUSH ONCE PRN PRN Reason: FOR ITCHING Enoxaparin Sodium (Lovenox -) 40 mg SQ DAILY [facility] Last Admin: 02/01/17 10:15 Dose: 40 mg Fentanyl (Sublimaze Injection -) 50 mcg IVPUSH [id number] PRN PRN Reason: PAIN Stop: 02/03/17 14:43 Vancomycin HCl 1,250 mg/ (Dextrose) 250 mls @ 250 mls/hr IVPB BID [facility] PRN Reason: Protocol Last Admin: 02/01/17 21:36 Dose: 250 mls/hr Ertapenem 1 gm/ Sodium (Chloride) 50 mls @ 50 mls/hr IVPB DAILY [facility] PRN Reason: Protocol Last Admin: 02/01/17 09:55 Dose: 50 mls/hr Fluconazole (Diflucan 200 Mg/D5w Premixed Ivpb -) 100 mls @ 100 mls/hr IVPB DAILY [facility] Last Admin: 02/01/17 09:55 Dose: 100 mls/hr Insulin Aspart (Novolog Vial Sliding Scale -) 1 vial SQ ACHS [facility] PRN Reason: Protocol Last Admin: 02/02/17 07:27 Dose: 2 units Insulin Detemir (Levemir Vial) 15 units SQ HS [facility] Last Admin: 02/01/17 21:36 Dose: 15 units Lactobacillus Acidophilus (Bacid -) 1 tab PO DAILY [facility] Last Admin: 02/01/17 09:55 Dose: 1 tab Losartan Potassium (Cozaar -) 100 mg PO DAILY [facility] Last Admin: 02/01/17 09:55 Dose: 100 mg Nystatin (Nystop Powder -) 1 applic TP DAILY [facility] Last Admin: 02/01/17 12:53 Dose: 1 applic Senna/Docusate Sodium (Pericolace -) 1 tablet PO BID [facility] Sodium Hypochlorite (Dakin's Solution 0.25% (Half-Strength) -) 1 applic NR BID [facility] Last Admin: 02/02/17 00:37 Dose: Not Given Tramadol HCl (Ultram -) 50 mg PO Q4H PRN PRN Reason: PAIN Last Admin: 02/02/17 08:35 Dose: 50 mg Zolpidem Tartrate (Ambien -) 5 mg PO HS PRN PRN Reason: INSOMNIA - Objective Vital Signs: Vital Signs Temperature 97.8 F 02/02/17 03:00 Pulse Rate 75 02/02/17 03:00 Respiratory Rate 17 02/02/17 03:00 Blood Pressure 126/67 02/02/17 03:00 O2 Sat by Pulse Oximetry (%) 96 02/02/17 06:42 Constitutional: Yes: No Distress, Calm Eyes: Yes: Conjunctiva Clear, EOM Intact HENT: Yes: Atraumatic, Normocephalic Neck: Yes: Supple, Trachea Midline Cardiovascular: Yes: Regular Rate and Rhythm Respiratory: Yes: Regular, CTA Bilaterally Gastrointestinal: Yes: Soft. No: Distention, Tenderness ...Rectal Exam: Yes: Other (wound packed with gauze. +serous drainage. applied more nystatin to labia/thigh area. still some induration laterally but not as tender.) Genitourinary: Yes: Youngblood Present Musculoskeletal: No: Joint Stiffness, Joint Swelling Extremities: No: Calf Tenderness, Erythema Integumentary: Yes: Bruising, Erythema Wound/Incision: Yes: Draining, Other (some ischemia of wound but this is expected given how much underminding there was. wound draining. packing in place.) Neurological: Yes: Alert, Oriented Psychiatric: Yes: Alert, Oriented Labs: CBC, BMP 02/02/17 07:30 02/02/17 07:30 INR, PTT INR 1.38 (0.82-1.09) H 01/26/17 19:15 Problem List - Problems (1) Abscess of buttock Assessment/Plan: cont dakins sitz baths to irrigate out area cont youngblood for wound care issues likely needs rehab sunday/sunday cont IV abx Code(s): L02.31 - CUTANEOUS ABSCESS OF BUTTOCK (2) Diabetes Code(s): E11.9 - TYPE 2 DIABETES MELLITUS WITHOUT COMPLICATIONS (3) Hyperglycemia Code(s): R73.9 - HYPERGLYCEMIA, UNSPECIFIED
[2017-02-02] MEDS: NYSTATIN POWDER 100,000 UNITS/GM - 15 GM TOPICAL POWDER TP SCH (10:20)
[2017-02-02] MEDS: ERTAPENEM SODIUM 1 GM in SODIUM CHLORIDE 50 ML IVPB SCH (10:20)
[2017-02-02] MEDS: SENNOSIDES/DOCUSATE COMBO (SENNA PLUS) TABLET (UD) PO SCH ×2 (10:20→22:30)
[2017-02-02] MEDS: ENOXAPARIN NA (PORCINE) 40 MG/0.4 ML DISP.SYRIN SQ SCH (10:20)
[2017-02-02] MEDS: LOSARTAN POTASSIUM 50 MG TABLET (FP) PO SCH (10:21)
[2017-02-02] MEDS: FLUCONAZOLE 200 MG/D5W 100 ML IVPB SCH (10:21)
[2017-02-02] MEDS: LACTOBACILLUS ACIDOPHILUS 1 EACH TAB (FP) PO SCH (10:21)
--- NOTE | 2017-02-02 10:48 | PN ---
Progress Note, Physician History of Present Illness: C/O buttock and perineal pain, relieved with analgesics Afebrile WBC WNL Wound c/s polymicrobial - Current Medication List Current Medications: Active Medications Acetaminophen (Tylenol -) 650 mg PO Q6H PRN PRN Reason: FEVER OR PAIN Last Admin: 02/02/17 08:36 Dose: 650 mg Diphenhydramine HCl (Benadryl Injection -) 12.5 mg IVPUSH ONCE PRN PRN Reason: FOR ITCHING Enoxaparin Sodium (Lovenox -) 40 mg SQ DAILY [facility] Last Admin: 02/02/17 10:20 Dose: 40 mg Fentanyl (Sublimaze Injection -) 50 mcg IVPUSH [id number] PRN PRN Reason: PAIN Stop: 02/03/17 14:43 Vancomycin HCl 1,250 mg/ (Dextrose) 250 mls @ 250 mls/hr IVPB BID [facility] PRN Reason: Protocol Last Admin: 02/02/17 10:19 Dose: 250 mls/hr Ertapenem 1 gm/ Sodium (Chloride) 50 mls @ 50 mls/hr IVPB DAILY [facility] PRN Reason: Protocol Last Admin: 02/02/17 10:20 Dose: 50 mls/hr Fluconazole (Diflucan 200 Mg/D5w Premixed Ivpb -) 100 mls @ 100 mls/hr IVPB DAILY [facility] Last Admin: 02/02/17 10:21 Dose: 100 mls/hr Insulin Aspart (Novolog Vial Sliding Scale -) 1 vial SQ ACHS [facility] PRN Reason: Protocol Last Admin: 02/02/17 07:27 Dose: 2 units Insulin Detemir (Levemir Vial) 15 units SQ HS [facility] Last Admin: 02/01/17 21:36 Dose: 15 units Lactobacillus Acidophilus (Bacid -) 1 tab PO DAILY [facility] Last Admin: 02/02/17 10:21 Dose: 1 tab Losartan Potassium (Cozaar -) 100 mg PO DAILY [facility] Last Admin: 02/02/17 10:21 Dose: 100 mg Nystatin (Nystop Powder -) 1 applic TP DAILY [facility] Last Admin: 02/02/17 10:20 Dose: 1 applic Senna/Docusate Sodium (Pericolace -) 1 tablet PO BID [facility] Last Admin: 02/02/17 10:20 Dose: 1 tablet Sodium Hypochlorite (Dakin's Solution 0.25% (Half-Strength) -) 1 applic NR BID [facility] Last Admin: 02/02/17 10:21 Dose: 1 applic Tramadol HCl (Ultram -) 50 mg PO Q4H PRN PRN Reason: PAIN Last Admin: 02/02/17 08:35 Dose: 50 mg Zolpidem Tartrate (Ambien -) 5 mg PO HS PRN PRN Reason: INSOMNIA - Objective Vital Signs: Vital Signs Temperature 97.8 F 02/02/17 03:00 Pulse Rate 75 02/02/17 03:00 Respiratory Rate 17 02/02/17 03:00 Blood Pressure 126/67 02/02/17 03:00 O2 Sat by Pulse Oximetry (%) 96 02/02/17 06:42 Constitutional: Yes: No Distress Eyes: Yes: Conjunctiva Clear Cardiovascular: Yes: Regular Rate and Rhythm, S1, S2 Respiratory: Yes: CTA Bilaterally Gastrointestinal: Yes: Normal Bowel Sounds, Soft. No: Tenderness Genitourinary: Yes: Other (perineum and buttock with josh drains in place) Edema: No Labs: CBC, BMP 02/02/17 07:30 02/02/17 07:30 INR, PTT INR 1.38 (0.82-1.09) H 01/26/17 19:15 Assessment/Plan S/P I&D buttock abscess- polymicrobial Sepsis secondary to soft tissue infection Lactic acidosis Diabetes mellitus Antibiotic allergies Continue vancomycin/ ertapenem/ fluconazole Local wound care
[2017-02-02] MEDS ORDERED: INSULIN (NOVOLOG) ASPART 100 UNITS/ML 10ML VIAL ONE ×2 (12:30→17:37)
[2017-02-02] MEDS ORDERED: REFRIGERATED ANITBIOTICS ONE (22:28)
[2017-02-02] MEDS: INSULIN DETEMIR 100 UNITS/ML MDV SQ SCH (22:31)
[2017-02-03] MEDS: INSULIN SLIDING SCALE (NOVOLOG) 1 VIAL SQ SCH ×4 (06:45→22:19)
[2017-02-03 07:45] LABS: BASOPHIL 0.4 % (0-2.0); EOSINOPHIL 0.8 % (0-4.5); MCH 33.5 pg (25.7-33.7); MCHC 35.3 g/dl (32.0-36.0); NEUTROPHILS 71.7 % (42.8-82.8); PLATELET COUNT 287 K/MM3 (134-434); WHITE BLOOD COUNT 7.9 K/mm3 (4.0-10.8)
[2017-02-03 08:07] LABS: ALBUMIN 2.1 g/dl (3.5-5.0); ALK PHOS 95 U/L (32-92); ANION GAP 6 (8-16); BILIRUBIN,TOTAL 0.5 mg/dl (0.2-1.0); CALCIUM 8.6 mg/dl (8.4-10.2); CO2 28 mmol/L (22-28); CREATININE 0.7 mg/dl (0.6-1.3); GLUCOSE,RANDOM 160 mg/dl (74-106); MAGNESIUM 1.7 mg/dL (1.8-2.4); SGOT/AST 35 U/L (10-42); SGPT/ALT 25 U/L (10-40); TOT PROT 6.6 g/dl (6.4-8.3)
[2017-02-03] MEDS ORDERED: PT OWN MED DRAWER 7, Y5N ONE (09:40)
[2017-02-03] MEDS ORDERED: MAGNESIUM HYDROX 2400MG/30ML ORAL SUSPENSION 30 ML CUP PO PRN (09:45)
[2017-02-03] MEDS ORDERED: MAGNESIUM SULF 50% (8.12 MEQ/2 ML-1 GM VIAL) IVPB ONE (09:48)
[2017-02-03] MEDS: LOSARTAN POTASSIUM 50 MG TABLET (FP) PO SCH (09:56)
[2017-02-03] MEDS: ENOXAPARIN NA (PORCINE) 40 MG/0.4 ML DISP.SYRIN SQ SCH (09:57)
[2017-02-03] MEDS: LACTOBACILLUS ACIDOPHILUS 1 EACH TAB (FP) PO SCH (09:59)
[2017-02-03] MEDS: SENNOSIDES/DOCUSATE COMBO (SENNA PLUS) TABLET (UD) PO SCH ×2 (10:04→21:52)
[2017-02-03] MEDS: NYSTATIN POWDER 100,000 UNITS/GM - 15 GM TOPICAL POWDER TP SCH (10:04)
[2017-02-03] MEDS: ERTAPENEM SODIUM 1 GM in SODIUM CHLORIDE 50 ML IVPB SCH (10:04)
[2017-02-03] MEDS: VANCOMYCIN 1,250 MG in DEXTROSE 5%-WATER - 250 ML IVPB SCH ×2 (10:04→22:20)
[2017-02-03] MEDS: FLUCONAZOLE 200 MG/D5W 100 ML IVPB SCH (10:04)
[2017-02-03] MEDS: SODIUM HYPOCHLORITE 0.25%- 473 ML BULK BOTTLE NR SCH ×2 (10:04→22:19)
--- NOTE | 2017-02-03 10:24 | PN ---
Physical Exam: SUBJECTIVE: Patient seen and examined. Reports feeling better overall. Still with pain to wound area. Not utilizing pain medications, prefers not to as they constipate her. Reports last BM 3 days ago. OBJECTIVE: Vital Signs - 24 hr 3 02/02/17 02/02/17 02/03/17 14:32 22:00 04:00 Temperature 97.8 F 98.0 F 98.5 F Pulse Rate 80 92 H 81 Respiratory 18 18 19 Rate Blood Pressure 129/70 134/69 137/60 O2 Sat by Pulse 93 L 96 Oximetry (%) GENERAL: The patient is awake, alert, and fully oriented, in no acute distress. HEAD: Normal with no signs of trauma. EYES: PERRL, extraocular movements intact, sclera anicteric, conjunctiva clear. No ptosis. ENT: Ears normal, nares patent, oropharynx clear without exudates, moist mucous membranes. NECK: Trachea midline, full range of motion, supple. LUNGS: Breath sounds equal, clear to auscultation bilaterally, no wheezes, no crackles, no accessory muscle use. HEART: Regular rate and rhythm, S1, S2 without murmur, rub or gallop. ABDOMEN: Soft, nontender, nondistended, normoactive bowel sounds, no guarding, no rebound, no hepatosplenomegaly, no masses. EXTREMITIES: 2+ pulses, warm, well-perfused, 1+ edema. NEUROLOGICAL: Cranial nerves II through XII grossly intact. Normal speech, gait not observed. PSYCH: Normal mood, normal affect. SKIN: Warm, dry, normal turgor, no rashes or lesions noted. wound to perineum: vertical incision vulva to buttock, josh drain in lower 2 incisions, serous drainage. + grayish discoloration noted to tissue with slough Laboratory Results - last 24 hr 3 02/02/17 02/02/17 02/02/17 02/03/17 02/03/17 12:26 17:27 22:22 06:37 07:27 WBC 7.9 RBC 3.19 L Hgb 10.7 Hct 30.3 L MCV 95.0 MCHC 35.3 RDW 14.0 Plt Count 287 MPV 8.0 Neutrophils % 71.7 Lymphocytes % 21.8 D Monocytes % 5.3 Eosinophils % 0.8 D Basophils % 0.4 D Band Neutrophils Sodium Potassium Chloride Carbon Dioxide Anion Gap BUN Creatinine Creat Clearance w eGFR POC Glucometer 191 171 181 133 Random Glucose Calcium Phosphorus Magnesium Total Bilirubin AST ALT Alkaline Phosphatase Total Protein Albumin 3 02/03/17 07:27 WBC RBC Hgb Hct MCV MCHC RDW Plt Count MPV Neutrophils % Lymphocytes % Monocytes % Eosinophils % Basophils % Band Neutrophils Sodium 138 Potassium 4.3 Chloride 104 Carbon Dioxide 28 Anion Gap 6 L BUN 12 Creatinine 0.7 Creat Clearance w eGFR > 60 POC Glucometer Random Glucose 160 H Calcium 8.6 Phosphorus 4.0 D Magnesium 1.7 L Total Bilirubin 0.5 D AST 35 ALT 25 Alkaline Phosphatase 95 H Total Protein 6.6 Albumin 2.1 L Active Medications 3 Generic Name Dose Route Start Last Admin Trade Name Freq PRN Reason Stop Dose Admin Acetaminophen 650 mg 01/27/17 01:44 02/02/17 08:36 Tylenol - PO 650 mg Q6H PRN Administration FEVER OR PAIN Diphenhydramine HCl 12.5 mg 01/31/17 14:39 Benadryl Injection - IVPUSH ONCE PRN FOR ITCHING Enoxaparin Sodium 40 mg 01/28/17 10:00 02/03/17 09:57 Lovenox - SQ 40 mg DAILY [facility] Administration Fentanyl 50 mcg 01/31/17 14:42 Sublimaze Injection - IVPUSH 02/03/17 14:43 [id number] PRN PAIN Vancomycin HCl 1,250 mg/ 250 mls @ 250 mls/hr 01/27/17 10:00 02/03/17 10:04 Dextrose IVPB 250 mls/hr BID [facility] Administration Protocol Ertapenem 1 gm/ Sodium 50 mls @ 50 mls/hr 01/27/17 10:00 02/03/17 10:04 Chloride IVPB 50 mls/hr DAILY [facility] Administration Protocol Fluconazole 100 mls @ 100 mls/hr 01/30/17 15:45 02/03/17 10:04 Diflucan 200 Mg/D5w Premixed Ivpb - IVPB 100 mls/hr DAILY [facility] Administration Insulin Aspart 1 vial 01/30/17 11:47 02/03/17 06:45 Novolog Vial Sliding Scale - SQ Not Given ACHS [facility] Protocol Insulin Detemir 15 units 02/01/17 13:49 02/02/17 22:31 Levemir Vial SQ 15 units HS [facility] Administration Lactobacillus Acidophilus 1 tab 01/29/17 14:00 02/03/17 09:59 Bacid - PO 1 tab DAILY [facility] Administration Losartan Potassium 100 mg 01/27/17 10:00 02/03/17 09:56 Cozaar - PO 100 mg DAILY [facility] Administration Magnesium Hydroxide 30 ml 02/03/17 09:45 Milk Of Magnesia - PO DAILY PRN CONSTIPATION Nystatin 1 applic 02/01/17 11:30 02/03/17 10:04 Nystop Powder - TP 1 applic DAILY [facility] Administration Senna/Docusate Sodium 1 tablet 02/02/17 10:00 02/03/17 10:04 Pericolace - PO Not Given BID [facility] Sodium Hypochlorite 1 applic 02/01/17 10:45 02/03/17 10:04 Dakin's Solution 0.25% (Half-Strength) - NR 1 applic BID [facility] Administration Tramadol HCl 50 mg 02/01/17 10:02 02/02/17 08:35 Ultram - PO 50 mg Q4H PRN Administration PAIN Zolpidem Tartrate 5 mg 01/29/17 15:15 Ambien - PO HS PRN INSOMNIA ASSESSMENT/PLAN: 61yF with PMH significant for DM, HTN, L TKR 2015 presented to ED with right buttock cellulitis. She has been admitted for further management. s/p I&D on and 01/31. Cultures + multiorganism, + pseudomonas. Right buttock necrotizing cellulitis with severe sepsis - sepsis resolved - continue antibiotics, DW Dr. Boggs, likely will change to ceftazidime given + pseudomonas - cont Dakin's packing - start MVI and vit C for wound healing - cont ID and surgery consults Constipation - MOM x 1, pt refusing miralax at this time. NIDDM - improved control with levemir. Cont to monitor and adjust dose accordingly. - cont novolog SS HTN - BP stable. Cont home losartan DVT PPX - cont lovenox FEN - pt tolerating po, defer IVF - mag low, replete and repeat in am - diabetic diet tolerated well Dispo: pt currently requires continued inpatient management of her emergent condition; consider DC to SNF for wound care early next week. Visit type - Emergency Visit Emergency Visit: Yes ED Registration Date: 01/26/17 Care time: The patient presented to the Emergency Department on the above date and was hospitalized for further evaluation of their emergent condition. - New Patient This patient is new to me today: No - Critical Care Critical Care patient: No - Discharge Referral Referred to [facility] Med P.C.: No
--- NOTE | 2017-02-03 12:40 | PN ---
Progress Note, Physician Chief Complaint: anxiety History of Present Illness: pt with same level of pain. ambulating - Current Medication List Current Medications: Active Medications Acetaminophen (Tylenol -) 650 mg PO Q6H PRN PRN Reason: FEVER OR PAIN Last Admin: 02/02/17 08:36 Dose: 650 mg Ascorbic Acid (Vitamin C -) 500 mg PO BID [facility] Diphenhydramine HCl (Benadryl Injection -) 12.5 mg IVPUSH ONCE PRN PRN Reason: FOR ITCHING Enoxaparin Sodium (Lovenox -) 40 mg SQ DAILY [facility] Last Admin: 02/03/17 09:57 Dose: 40 mg Fentanyl (Sublimaze Injection -) 50 mcg IVPUSH [id number] PRN PRN Reason: PAIN Stop: 02/03/17 14:43 Vancomycin HCl 1,250 mg/ (Dextrose) 250 mls @ 250 mls/hr IVPB BID [facility] PRN Reason: Protocol Last Admin: 02/03/17 10:04 Dose: 250 mls/hr Ertapenem 1 gm/ Sodium (Chloride) 50 mls @ 50 mls/hr IVPB DAILY [facility] PRN Reason: Protocol Last Admin: 02/03/17 10:04 Dose: 50 mls/hr Fluconazole (Diflucan 200 Mg/D5w Premixed Ivpb -) 100 mls @ 100 mls/hr IVPB DAILY [facility] Last Admin: 02/03/17 10:04 Dose: 100 mls/hr Insulin Aspart (Novolog Vial Sliding Scale -) 1 vial SQ ACHS [facility] PRN Reason: Protocol Last Admin: 02/03/17 12:08 Dose: 4 units Insulin Detemir (Levemir Vial) 15 units SQ HS [facility] Last Admin: 02/02/17 22:31 Dose: 15 units Lactobacillus Acidophilus (Bacid -) 1 tab PO DAILY [facility] Last Admin: 02/03/17 09:59 Dose: 1 tab Losartan Potassium (Cozaar -) 100 mg PO DAILY [facility] Last Admin: 02/03/17 09:56 Dose: 100 mg Magnesium Hydroxide (Milk Of Magnesia -) 30 ml PO DAILY PRN PRN Reason: CONSTIPATION Last Admin: 02/03/17 11:07 Dose: 30 ml Multivitamins/Minerals/Vitamin C (Tab-A-Vit -) 1 tab PO DAILY [facility] Nystatin (Nystop Powder -) 1 applic TP DAILY [facility] Last Admin: 02/03/17 10:04 Dose: 1 applic Senna/Docusate Sodium (Pericolace -) 1 tablet PO BID [facility] Last Admin: 02/03/17 10:04 Dose: Not Given Sodium Hypochlorite (Dakin's Solution 0.25% (Half-Strength) -) 1 applic NR BID [facility] Last Admin: 02/03/17 10:04 Dose: 1 applic Tramadol HCl (Ultram -) 50 mg PO Q4H PRN PRN Reason: PAIN Last Admin: 02/02/17 08:35 Dose: 50 mg Zolpidem Tartrate (Ambien -) 5 mg PO HS PRN PRN Reason: INSOMNIA - Objective Vital Signs: Vital Signs Temperature 98.5 F 02/03/17 04:00 Pulse Rate 81 02/03/17 04:00 Respiratory Rate 19 02/03/17 04:00 Blood Pressure 137/60 02/03/17 04:00 O2 Sat by Pulse Oximetry (%) 96 02/03/17 08:11 Constitutional: Yes: Well Nourished, No Distress Eyes: Yes: Conjunctiva Clear, EOM Intact HENT: Yes: Atraumatic, Normocephalic Neck: Yes: Supple, Trachea Midline Cardiovascular: Yes: Regular Rate and Rhythm Respiratory: Yes: Regular, CTA Bilaterally Gastrointestinal: Yes: Soft. No: Distention, Tenderness ...Rectal Exam: Yes: Other (wound unchanged. still some purple areas near labia with blanching. some ischemia of lateral aspect. wound base is still brown. repacked with dakins gauze.) Genitourinary: No: CVA Tenderness - Left, CVA Tenderness - Right Breast(s): No: Mass, Nipple Inversion Musculoskeletal: No: Joint Stiffness, Joint Swelling Extremities: No: Calf Tenderness, Erythema Integumentary: No: Erythema, Rash Wound/Incision: Yes: Draining Neurological: Yes: Alert, Oriented Psychiatric: Yes: Alert, Oriented Labs: CBC, BMP 02/03/17 07:27 02/03/17 07:27 INR, PTT INR 1.38 (0.82-1.09) H 01/26/17 19:15 Problem List - Problems (1) Abscess of buttock Assessment/Plan: cont dakins cont youngblood' IV vs oral as dictated by ID Code(s): L02.31 - CUTANEOUS ABSCESS OF BUTTOCK (2) Diabetes Code(s): E11.9 - TYPE 2 DIABETES MELLITUS WITHOUT COMPLICATIONS (3) Hyperglycemia Code(s): R73.9 - HYPERGLYCEMIA, UNSPECIFIED
[2017-02-03] MEDS: ACETAMINOPHEN 325 MG TABLET (FP) PO PRN (15:15)
[2017-02-03] MEDS ORDERED: INSULIN (NOVOLOG) ASPART 100 UNITS/ML 10ML VIAL ONE ×2 (16:49→22:17)
[2017-02-03] MEDS: INSULIN DETEMIR 100 UNITS/ML MDV SQ SCH (22:19)
[2017-02-03] MEDS: ASCORBIC ACID 500 MG TABLET (FP) PO SCH (22:20)
[2017-02-04] MEDS: ACETAMINOPHEN 325 MG TABLET (FP) PO PRN ×3 (01:37→20:30)
[2017-02-04] MEDS: INSULIN SLIDING SCALE (NOVOLOG) 1 VIAL SQ SCH ×4 (06:44→21:39)
[2017-02-04] MEDS ORDERED: POLYETHYLENE GLYCOL 3350 119 GM BTL PO PRN (09:47)
[2017-02-04] MEDS ORDERED: MAGNESIUM CITRATE 300 ML BOTTLE PO PRN (09:49)
[2017-02-04 09:52] LABS: BASOPHIL 0.8 % (0-2.0); EOSINOPHIL 1.9 % (0-4.5); MCH 32.4 pg (25.7-33.7); MEAN CELL VOLUME 95.4 fl (80-96); NEUTROPHILS 75.8 % (42.8-82.8); PLATELET COUNT 332 K/MM3 (134-434); WHITE BLOOD COUNT 6.9 K/mm3 (4.0-10.8)
[2017-02-04] MEDS ORDERED: REFRIGERATED ANITBIOTICS ONE (10:02)
[2017-02-04 10:15] LABS: ANION GAP 10 (8-16); CALCIUM 8.8 mg/dl (8.4-10.2); CO2 27 mmol/L (22-28); CREATININE 0.6 mg/dl (0.6-1.3); GLUCOSE,RANDOM 229 mg/dl (74-106); MAGNESIUM 1.9 mg/dL (1.8-2.4)
--- NOTE | 2017-02-04 10:15 | PN ---
Progress Note, Physician Chief Complaint: burning pain History of Present Illness: burning pain near incision. no systemic symptoms. +BM. Still has abd discomfort from constipation - Current Medication List Current Medications: Active Medications Acetaminophen (Tylenol -) 650 mg PO Q6H PRN PRN Reason: FEVER OR PAIN Last Admin: 02/04/17 01:37 Dose: 650 mg Ascorbic Acid (Vitamin C -) 500 mg PO BID [facility] Last Admin: 02/03/17 22:20 Dose: 500 mg Diphenhydramine HCl (Benadryl Injection -) 12.5 mg IVPUSH ONCE PRN PRN Reason: FOR ITCHING Enoxaparin Sodium (Lovenox -) 40 mg SQ DAILY [facility] Last Admin: 02/03/17 09:57 Dose: 40 mg Vancomycin HCl 1,250 mg/ (Dextrose) 250 mls @ 250 mls/hr IVPB BID [facility] PRN Reason: Protocol Last Admin: 02/03/17 22:20 Dose: 250 mls/hr Ertapenem 1 gm/ Sodium (Chloride) 50 mls @ 50 mls/hr IVPB DAILY [facility] PRN Reason: Protocol Last Admin: 02/03/17 10:04 Dose: 50 mls/hr Fluconazole (Diflucan 200 Mg/D5w Premixed Ivpb -) 100 mls @ 100 mls/hr IVPB DAILY [facility] Last Admin: 02/03/17 10:04 Dose: 100 mls/hr Insulin Aspart (Novolog Vial Sliding Scale -) 1 vial SQ ACHS [facility] PRN Reason: Protocol Last Admin: 02/04/17 06:44 Dose: Not Given Insulin Detemir (Levemir Vial) 15 units SQ HS [facility] Last Admin: 02/03/17 22:19 Dose: 15 units Lactobacillus Acidophilus (Bacid -) 1 tab PO DAILY [facility] Last Admin: 02/03/17 09:59 Dose: 1 tab Losartan Potassium (Cozaar -) 100 mg PO DAILY [facility] Last Admin: 02/03/17 09:56 Dose: 100 mg Magnesium Citrate (Citroma -) 300 ml PO PRN PRN PRN Reason: CONSTIPATION Stop: 02/05/17 09:50 Magnesium Hydroxide (Milk Of Magnesia -) 30 ml PO DAILY PRN PRN Reason: CONSTIPATION Last Admin: 02/03/17 11:07 Dose: 30 ml Multivitamins/Minerals/Vitamin C (Tab-A-Vit -) 1 tab PO DAILY [facility] Nystatin (Nystop Powder -) 1 applic TP DAILY [facility] Last Admin: 02/03/17 10:04 Dose: 1 applic Polyethylene Glycol (Miralax (For Daily Use) -) 17 gm PO DAILY PRN PRN Reason: CONSTIPATION Senna/Docusate Sodium (Pericolace -) 1 tablet PO BID [facility] Last Admin: 02/03/17 21:52 Dose: Not Given Sodium Hypochlorite (Dakin's Solution 0.25% (Half-Strength) -) 1 applic NR BID [facility] Last Admin: 02/03/17 22:19 Dose: 1 applic Tramadol HCl (Ultram -) 50 mg PO Q4H PRN PRN Reason: PAIN Last Admin: 02/02/17 08:35 Dose: 50 mg Zolpidem Tartrate (Ambien -) 5 mg PO HS PRN PRN Reason: INSOMNIA - Objective Vital Signs: Vital Signs Temperature 98.1 F 02/04/17 06:00 Pulse Rate 72 02/04/17 06:00 Respiratory Rate 20 02/04/17 06:00 Blood Pressure 157/76 02/04/17 06:00 O2 Sat by Pulse Oximetry (%) 96 02/04/17 06:00 Constitutional: Yes: No Distress, Calm Eyes: Yes: Conjunctiva Clear, EOM Intact HENT: Yes: Atraumatic, Normocephalic Neck: Yes: Supple, Trachea Midline Cardiovascular: Yes: Regular Rate and Rhythm Respiratory: Yes: Regular, CTA Bilaterally Gastrointestinal: Yes: Soft, Distention. No: Tenderness ...Rectal Exam: Yes: Other (Wound with purple discoloration and blanching and some mild induration lateral to incision. base has fibrinous type material. no purulence. essentially wound same as yesterday.) Genitourinary: Yes: Youngblood Present. No: CVA Tenderness - Left, CVA Tenderness - Right Musculoskeletal: No: Joint Stiffness, Joint Swelling Extremities: No: Calf Tenderness, Erythema Integumentary: Yes: Erythema. No: Rash Wound/Incision: Yes: Draining Neurological: Yes: Alert, Oriented Psychiatric: Yes: Alert, Oriented Labs: CBC, BMP 02/04/17 09:00 INR, PTT INR 1.38 (0.82-1.09) H 01/26/17 19:15 Problem List - Problems (1) Abscess of buttock Assessment/Plan: cont dakins cont abx cont youngblood no need for operative intervention for now Code(s): L02.31 - CUTANEOUS ABSCESS OF BUTTOCK (2) Diabetes Code(s): E11.9 - TYPE 2 DIABETES MELLITUS WITHOUT COMPLICATIONS (3) Hyperglycemia Code(s): R73.9 - HYPERGLYCEMIA, UNSPECIFIED
[2017-02-04 10:29] LABS: COCKROFT - GAULT NT
[2017-02-04] MEDS: LOSARTAN POTASSIUM 50 MG TABLET (FP) PO SCH (10:29)
[2017-02-04] MEDS: ASCORBIC ACID 500 MG TABLET (FP) PO SCH ×2 (10:29→21:38)
[2017-02-04] MEDS: MULTIVITAMINS (DAILY MVI) TABLET (FP) PO SCH (10:30)
[2017-02-04] MEDS: LACTOBACILLUS ACIDOPHILUS 1 EACH TAB (FP) PO SCH (10:30)
[2017-02-04] MEDS: FLUCONAZOLE 200 MG/D5W 100 ML IVPB SCH (10:30)
[2017-02-04] MEDS: SENNOSIDES/DOCUSATE COMBO (SENNA PLUS) TABLET (UD) PO SCH ×2 (10:30→21:39)
[2017-02-04] MEDS: ENOXAPARIN NA (PORCINE) 40 MG/0.4 ML DISP.SYRIN SQ SCH (10:30)
[2017-02-04] MEDS: NYSTATIN POWDER 100,000 UNITS/GM - 15 GM TOPICAL POWDER TP SCH (10:30)
[2017-02-04] MEDS: SODIUM HYPOCHLORITE 0.25%- 473 ML BULK BOTTLE NR SCH ×2 (10:30→21:39)
[2017-02-04] MEDS: VANCOMYCIN 1,250 MG in DEXTROSE 5%-WATER - 250 ML IVPB SCH ×2 (11:11→21:38)
[2017-02-04] MEDS: cefTAZidime PENTAHYDRATE 1 GM/50ML PRE-DOCKED (RESTRICTED TO ID) IVPB SCH (11:11)
--- NOTE | 2017-02-04 18:07 | PN ---
Physical Exam: SUBJECTIVE: Patient seen and examined. She would like to have a more meaningful bm, she needs to get on an ambulation schedule. OBJECTIVE: Vital Signs Period Temp Pulse Resp BP Sys/Sloan Pulse Ox Last 24 Hr 98.1 F-99.0 F 72-85 18-20 133-168/71-82 94-97 PE Neuro: alert, awake, cn 2-12intact Pulm: CTAB CV: s1 s2 rrr no mrg Abd: s nt nd LLQ discomfort : perineal wound open with josh drain, slough indurated erythema + tenderness to palpation + youngblood in place Ext: warm, no le edema Laboratory Results - last 24 hr 02/03/17 02/04/17 02/04/17 21:16 06:35 09:00 WBC 6.9 RBC 3.36 L Hgb 10.9 Hct 32.0 L MCV 95.4 MCHC 34.0 RDW 14.0 Plt Count 332 MPV 8.0 Neutrophils % 75.8 Lymphocytes % 15.6 D Monocytes % 5.9 Eosinophils % 1.9 D Basophils % 0.8 Sodium Potassium Chloride Carbon Dioxide Anion Gap BUN Creatinine POC Glucometer 171 141 Random Glucose Calcium Magnesium 02/04/17 02/04/17 02/04/17 09:00 11:37 16:52 WBC RBC Hgb Hct MCV MCHC RDW Plt Count MPV Neutrophils % Lymphocytes % Monocytes % Eosinophils % Basophils % Sodium 137 Potassium 4.6 Chloride 100 Carbon Dioxide 27 Anion Gap 10 BUN 11 Creatinine 0.6 POC Glucometer 185 138 Random Glucose 229 H D Calcium 8.8 Magnesium 1.9 Active Medications Generic Name Dose Route Start Last Admin Trade Name Fay PRN Reason Stop Dose Admin Acetaminophen 650 mg 01/27/17 01:44 02/04/17 11:09 Tylenol - PO 650 mg Q6H PRN Administration FEVER OR PAIN Ascorbic Acid 500 mg 02/03/17 22:00 02/04/17 10:29 Vitamin C - PO 500 mg BID [facility] Administration Ceftazidime 1 gm 02/04/17 10:45 02/04/17 11:11 Fortaz 1 Gm Ivpb (Pre-Docked) IVPB 1 gm Q8H-IV [facility] Administration Protocol Diphenhydramine HCl 12.5 mg 01/31/17 14:39 Benadryl Injection - IVPUSH ONCE PRN FOR ITCHING Enoxaparin Sodium 40 mg 01/28/17 10:00 02/04/17 10:30 Lovenox - SQ 40 mg DAILY [facility] Administration Vancomycin HCl 1,250 mg/ 250 mls @ 250 mls/hr 01/27/17 10:00 02/04/17 11:11 Dextrose IVPB 250 mls/hr BID [facility] Administration Protocol Fluconazole 100 mls @ 100 mls/hr 01/30/17 15:45 02/04/17 10:30 Diflucan 200 Mg/D5w Premixed Ivpb - IVPB 100 mls/hr DAILY [facility] Administration Insulin Aspart 1 vial 01/30/17 11:47 02/04/17 11:39 Novolog Vial Sliding Scale - SQ 2 units ACHS [facility] Administration Protocol Insulin Detemir 15 units 02/01/17 13:49 02/03/17 22:19 Levemir Vial SQ 15 units HS [facility] Administration Lactobacillus Acidophilus 1 tab 01/29/17 14:00 02/04/17 10:30 Bacid - PO 1 tab DAILY [facility] Administration Losartan Potassium 100 mg 01/27/17 10:00 02/04/17 10:29 Cozaar - PO 100 mg DAILY [facility] Administration Magnesium Citrate 300 ml 02/04/17 09:49 Citroma - PO 02/05/17 09:50 PRN PRN CONSTIPATION Magnesium Hydroxide 30 ml 02/03/17 09:45 02/03/17 11:07 Milk Of Magnesia - PO 30 ml DAILY PRN Administration CONSTIPATION Multivitamins/Minerals/Vitamin C 1 tab 02/04/17 10:00 02/04/17 10:30 Tab-A-Vit - PO 1 tab DAILY [facility] Administration Nystatin 1 applic 02/01/17 11:30 02/04/17 10:30 Nystop Powder - TP 1 applic DAILY [facility] Administration Polyethylene Glycol 17 gm 02/04/17 09:47 Miralax (For Daily Use) - PO DAILY PRN CONSTIPATION Senna/Docusate Sodium 1 tablet 02/02/17 10:00 02/04/17 10:30 Pericolace - PO Not Given BID [facility] Sodium Hypochlorite 1 applic 02/01/17 10:45 02/04/17 10:30 Dakin's Solution 0.25% (Half-Strength) - NR 1 applic BID [facility] Administration Tramadol HCl 50 mg 02/01/17 10:02 02/02/17 08:35 Ultram - PO 50 mg Q4H PRN Administration PAIN Zolpidem Tartrate 5 mg 01/29/17 15:15 Ambien - PO HS PRN INSOMNIA Microbiology 01/31/17 15:30 Wound Gram Stain - Final 01/31/17 15:30 Wound Wound Culture - Final Pseudomonas Aeruginosa 01/28/17 11:00 Abscess Gram Stain - Final 01/28/17 11:00 Abscess Wound Culture - Final Yeast Like Organism Propionibacterium Granulosum Non Spore Form Gram Pos Meghann 01/26/17 19:15 Blood - Peripheral Venous Blood Culture - Final NO GROWTH AFTER 5 DAYS INCUBATION 01/26/17 19:15 Blood - Peripheral Venous Blood Culture - Final NO GROWTH AFTER 5 DAYS INCUBATION 01/28/17 11:00 Abscess Gram Stain - Final 01/28/17 11:00 Abscess Wound Culture - Final Yeast Like Organism Propionibacterium Granulosum Non Spore Form Gram Pos Meghann 01/27/17 13:09 Buttock - Right Gram Stain - Final 01/27/17 13:09 Buttock - Right Wound Culture - Final Staphylococcus Coagulase Neg Assessment: 61 year old female with PMH significant for DM, HTN, L TKR 2016 admitted with right buttock cellulitis. She has been admitted for further management. s/p I&D on 01/27 and 01/31. Cultures + multiorganism, + pseudomonas. Plan: 1. Right buttock necrotizing cellulitis with severe sepsis - Sepsis resolved, repeat BC negative - Continue ceftazidime q8 (02/03- for pseudomonas) - Continue Vanco BID - Continue diflucan daily - Cont Dakin's packing with BID dressing changes - MVI and vit C daily 2. Constipation - Small bm today - Pt notes senna gives her cramps - Will attempt to ambulate and continue with miralax 3. DM II - Levemir 15units HS - ISS, BGM ACHS 4. HTN - BP elevated today, however baseline controlled - Losartan daily - Monitor BP, if remains elevated will trial norvasc Visit type - Emergency Visit Emergency Visit: Yes ED Registration Date: 01/26/17 Care time: The patient presented to the Emergency Department on the above date and was hospitalized for further evaluation of their emergent condition. - New Patient This patient is new to me today: Yes Date on this admission: 02/04/17 - Critical Care Critical Care patient: No
--- NOTE | 2017-02-04 19:01 | PN ---
Progress Note, Physician History of Present Illness: Reports less buttock/perineal pain No c/o fever/chills Tolerating antibiotics WBC WNL - Current Medication List Current Medications: Active Medications Acetaminophen (Tylenol -) 650 mg PO Q6H PRN PRN Reason: FEVER OR PAIN Last Admin: 02/04/17 11:09 Dose: 650 mg Ascorbic Acid (Vitamin C -) 500 mg PO BID [facility] Last Admin: 02/04/17 10:29 Dose: 500 mg Ceftazidime (Fortaz 1 Gm Ivpb (Pre-Docked)) 1 gm IVPB Q8H-IV [facility] PRN Reason: Protocol Last Admin: 02/04/17 11:11 Dose: 1 gm Diphenhydramine HCl (Benadryl Injection -) 12.5 mg IVPUSH ONCE PRN PRN Reason: FOR ITCHING Enoxaparin Sodium (Lovenox -) 40 mg SQ DAILY [facility] Last Admin: 02/04/17 10:30 Dose: 40 mg Vancomycin HCl 1,250 mg/ (Dextrose) 250 mls @ 250 mls/hr IVPB BID [facility] PRN Reason: Protocol Last Admin: 02/04/17 11:11 Dose: 250 mls/hr Fluconazole (Diflucan 200 Mg/D5w Premixed Ivpb -) 100 mls @ 100 mls/hr IVPB DAILY [facility] Last Admin: 02/04/17 10:30 Dose: 100 mls/hr Insulin Aspart (Novolog Vial Sliding Scale -) 1 vial SQ ACHS [facility] PRN Reason: Protocol Last Admin: 02/04/17 11:39 Dose: 2 units Insulin Detemir (Levemir Vial) 15 units SQ HS [facility] Last Admin: 02/03/17 22:19 Dose: 15 units Lactobacillus Acidophilus (Bacid -) 1 tab PO DAILY [facility] Last Admin: 02/04/17 10:30 Dose: 1 tab Losartan Potassium (Cozaar -) 100 mg PO DAILY [facility] Last Admin: 02/04/17 10:29 Dose: 100 mg Magnesium Citrate (Citroma -) 300 ml PO PRN PRN PRN Reason: CONSTIPATION Stop: 02/05/17 09:50 Magnesium Hydroxide (Milk Of Magnesia -) 30 ml PO DAILY PRN PRN Reason: CONSTIPATION Last Admin: 02/03/17 11:07 Dose: 30 ml Multivitamins/Minerals/Vitamin C (Tab-A-Vit -) 1 tab PO DAILY [facility] Last Admin: 02/04/17 10:30 Dose: 1 tab Nystatin (Nystop Powder -) 1 applic TP DAILY [facility] Last Admin: 02/04/17 10:30 Dose: 1 applic Polyethylene Glycol (Miralax (For Daily Use) -) 17 gm PO DAILY PRN PRN Reason: CONSTIPATION Senna/Docusate Sodium (Pericolace -) 1 tablet PO BID [facility] Last Admin: 02/04/17 10:30 Dose: Not Given Sodium Hypochlorite (Dakin's Solution 0.25% (Half-Strength) -) 1 applic NR BID [facility] Last Admin: 02/04/17 10:30 Dose: 1 applic Tramadol HCl (Ultram -) 50 mg PO Q4H PRN PRN Reason: PAIN Last Admin: 02/02/17 08:35 Dose: 50 mg Zolpidem Tartrate (Ambien -) 5 mg PO HS PRN PRN Reason: INSOMNIA - Objective Vital Signs: Vital Signs Temperature 99.0 F 02/04/17 14:32 Pulse Rate 85 02/04/17 14:32 Respiratory Rate 19 02/04/17 14:32 Blood Pressure 168/82 02/04/17 14:32 O2 Sat by Pulse Oximetry (%) 97 02/04/17 14:32 Constitutional: Yes: No Distress Eyes: Yes: Conjunctiva Clear Cardiovascular: Yes: Regular Rate and Rhythm, S1, S2 Respiratory: Yes: CTA Bilaterally Gastrointestinal: Yes: Normal Bowel Sounds, Soft Wound/Incision: Yes: Other (R buttock indurated, erythematous Tracy drains in place) Labs: CBC, BMP 02/04/17 09:00 02/04/17 09:00 INR, PTT INR 1.38 (0.82-1.09) H 01/26/17 19:15 Assessment/Plan S/P I&D buttock abscess- polymicrobial Sepsis secondary to soft tissue infection Lactic acidosis Diabetes mellitus Antibiotic allergies Continue vancomycin/ ceftazidime/ fluconazole Local wound care
[2017-02-04] MEDS: INSULIN DETEMIR 100 UNITS/ML MDV SQ SCH (21:40)
[2017-02-05] MEDS: cefTAZidime PENTAHYDRATE 1 GM/50ML PRE-DOCKED (RESTRICTED TO ID) IVPB SCH (01:34)
[2017-02-05] MEDS: INSULIN SLIDING SCALE (NOVOLOG) 1 VIAL SQ SCH ×4 (06:50→22:05)
[2017-02-05] MEDS: ASCORBIC ACID 500 MG TABLET (FP) PO SCH ×2 (09:44→22:07)
[2017-02-05] MEDS: LOSARTAN POTASSIUM 50 MG TABLET (FP) PO SCH (09:44)
[2017-02-05] MEDS: MULTIVITAMINS (DAILY MVI) TABLET (FP) PO SCH (09:44)
[2017-02-05] MEDS: ENOXAPARIN NA (PORCINE) 40 MG/0.4 ML DISP.SYRIN SQ SCH (09:45)
[2017-02-05] MEDS: SENNOSIDES/DOCUSATE COMBO (SENNA PLUS) TABLET (UD) PO SCH ×2 (09:45→22:07)
[2017-02-05] MEDS: LACTOBACILLUS ACIDOPHILUS 1 EACH TAB (FP) PO SCH (09:45)
[2017-02-05] MEDS: SODIUM HYPOCHLORITE 0.25%- 473 ML BULK BOTTLE NR SCH ×2 (09:45→22:04)
[2017-02-05] MEDS: NYSTATIN POWDER 100,000 UNITS/GM - 15 GM TOPICAL POWDER TP SCH (09:46)
--- NOTE | 2017-02-05 09:56 | PN ---
Progress Note, Physician History of Present Illness: Reports less buttock and perineal pain No fever/ chills WBC WNL - Current Medication List Current Medications: Active Medications Acetaminophen (Tylenol -) 650 mg PO Q6H PRN PRN Reason: FEVER OR PAIN Last Admin: 02/04/17 20:30 Dose: 650 mg Ascorbic Acid (Vitamin C -) 500 mg PO BID [facility] Last Admin: 02/05/17 09:44 Dose: 500 mg Ceftazidime (Fortaz 1 Gm Ivpb (Pre-Docked)) 1 gm IVPB Q8H-IV [facility] PRN Reason: Protocol Last Admin: 02/05/17 01:34 Dose: 1 gm Diphenhydramine HCl (Benadryl Injection -) 12.5 mg IVPUSH ONCE PRN PRN Reason: FOR ITCHING Enoxaparin Sodium (Lovenox -) 40 mg SQ DAILY [facility] Last Admin: 02/05/17 09:45 Dose: 40 mg Fluconazole (Diflucan 200 Mg/D5w Premixed Ivpb -) 100 mls @ 100 mls/hr IVPB DAILY [facility] Last Admin: 02/04/17 10:30 Dose: 100 mls/hr Insulin Aspart (Novolog Vial Sliding Scale -) 1 vial SQ ACHS [facility] PRN Reason: Protocol Last Admin: 02/05/17 06:50 Dose: Not Given Insulin Detemir (Levemir Vial) 15 units SQ HS [facility] Last Admin: 02/04/17 21:40 Dose: 15 units Lactobacillus Acidophilus (Bacid -) 1 tab PO DAILY [facility] Last Admin: 02/05/17 09:45 Dose: 1 tab Losartan Potassium (Cozaar -) 100 mg PO DAILY [facility] Last Admin: 02/05/17 09:44 Dose: 100 mg Magnesium Hydroxide (Milk Of Magnesia -) 30 ml PO DAILY PRN PRN Reason: CONSTIPATION Last Admin: 02/03/17 11:07 Dose: 30 ml Multivitamins/Minerals/Vitamin C (Tab-A-Vit -) 1 tab PO DAILY [facility] Last Admin: 02/05/17 09:44 Dose: 1 tab Nystatin (Nystop Powder -) 1 applic TP DAILY [facility] Last Admin: 02/05/17 09:46 Dose: 1 applic Polyethylene Glycol (Miralax (For Daily Use) -) 17 gm PO DAILY PRN PRN Reason: CONSTIPATION Senna/Docusate Sodium (Pericolace -) 1 tablet PO BID [facility] Last Admin: 02/05/17 09:45 Dose: 1 tablet Sodium Hypochlorite (Dakin's Solution 0.25% (Half-Strength) -) 1 applic NR BID [facility] Last Admin: 02/05/17 09:45 Dose: 1 applic Tramadol HCl (Ultram -) 50 mg PO Q4H PRN PRN Reason: PAIN Last Admin: 02/02/17 08:35 Dose: 50 mg Zolpidem Tartrate (Ambien -) 5 mg PO HS PRN PRN Reason: INSOMNIA - Objective Vital Signs: Vital Signs Temperature 98.7 F 02/05/17 06:00 Pulse Rate 79 02/05/17 06:00 Respiratory Rate 18 02/05/17 08:42 Blood Pressure 154/76 02/05/17 06:00 O2 Sat by Pulse Oximetry (%) 94 L 02/05/17 08:42 Constitutional: Yes: No Distress Eyes: Yes: Conjunctiva Clear Cardiovascular: Yes: Regular Rate and Rhythm, S1, S2 Respiratory: Yes: CTA Bilaterally Gastrointestinal: Yes: Normal Bowel Sounds, Soft. No: Tenderness Integumentary: Yes: Other (decreased erythema/ induration R buttock/ perineum no drainage) Labs: CBC, BMP 02/04/17 09:00 02/04/17 09:00 INR, PTT INR 1.38 (0.82-1.09) H 01/26/17 19:15 Assessment/Plan S/P I&D buttock abscess- polymicrobial Sepsis secondary to soft tissue infection Lactic acidosis Diabetes mellitus Antibiotic allergies Pt examined with Dr Hon Calix po clindamycin / ciprofloxacin/ fluconazole additional 7-10d Local wound care
[2017-02-05] MEDS ORDERED: CIPROFLOXACIN 500 MG TABLET (RESTRICTED TO ID) PO SCH (10:00)
[2017-02-05] MEDS ORDERED: CIPROFLOXACIN 250 MG TABLET (RESTRICTED TO ID) PO SCH (10:10)
[2017-02-05] MEDS ORDERED: PT OWN MED DRAWER 7, Y5N ONE ×2 (10:27→21:39)
[2017-02-05] MEDS: FLUCONAZOLE 100 MG TABLET (UD) PO SCH (10:30)
[2017-02-05] MEDS: CLINDAMYCIN HCL 150 MG CAPSULE (FP) PO SCH ×3 (10:30→22:04)
[2017-02-05] MEDS: CIPROFLOXACIN 250 MG TABLET (RESTRICTED TO ID) PO SCH ×2 (10:44→22:04)
--- NOTE | 2017-02-05 10:46 | PN ---
Progress Note, Physician Chief Complaint: none. improved History of Present Illness: pt ambulating. feels better than yesterday. +BM. - Current Medication List Current Medications: Active Medications Acetaminophen (Tylenol -) 650 mg PO Q6H PRN PRN Reason: FEVER OR PAIN Last Admin: 02/04/17 20:30 Dose: 650 mg Ascorbic Acid (Vitamin C -) 500 mg PO BID [facility] Last Admin: 02/05/17 09:44 Dose: 500 mg Ciprofloxacin (Cipro (Restricted To Id)) 500 mg PO BID [facility] Clindamycin HCl (Cleocin -) 300 mg PO TID [facility] Last Admin: 02/05/17 10:30 Dose: 300 mg Diphenhydramine HCl (Benadryl Injection -) 12.5 mg IVPUSH ONCE PRN PRN Reason: FOR ITCHING Enoxaparin Sodium (Lovenox -) 40 mg SQ DAILY [facility] Last Admin: 02/05/17 09:45 Dose: 40 mg Fluconazole (Diflucan -) 200 mg PO DAILY [facility] Last Admin: 02/05/17 10:30 Dose: 200 mg Insulin Aspart (Novolog Vial Sliding Scale -) 1 vial SQ ACHS [facility] PRN Reason: Protocol Last Admin: 02/05/17 06:50 Dose: Not Given Insulin Detemir (Levemir Vial) 15 units SQ HS [facility] Last Admin: 02/04/17 21:40 Dose: 15 units Lactobacillus Acidophilus (Bacid -) 1 tab PO DAILY [facility] Last Admin: 02/05/17 09:45 Dose: 1 tab Losartan Potassium (Cozaar -) 100 mg PO DAILY [facility] Last Admin: 02/05/17 09:44 Dose: 100 mg Magnesium Hydroxide (Milk Of Magnesia -) 30 ml PO DAILY PRN PRN Reason: CONSTIPATION Last Admin: 02/03/17 11:07 Dose: 30 ml Multivitamins/Minerals/Vitamin C (Tab-A-Vit -) 1 tab PO DAILY [facility] Last Admin: 02/05/17 09:44 Dose: 1 tab Nystatin (Nystop Powder -) 1 applic TP DAILY [facility] Last Admin: 02/05/17 09:46 Dose: 1 applic Polyethylene Glycol (Miralax (For Daily Use) -) 17 gm PO DAILY PRN PRN Reason: CONSTIPATION Senna/Docusate Sodium (Pericolace -) 1 tablet PO BID [facility] Last Admin: 02/05/17 09:45 Dose: 1 tablet Sodium Hypochlorite (Dakin's Solution 0.25% (Half-Strength) -) 1 applic NR BID [facility] Last Admin: 02/05/17 09:45 Dose: 1 applic Tramadol HCl (Ultram -) 50 mg PO Q4H PRN PRN Reason: PAIN Last Admin: 02/02/17 08:35 Dose: 50 mg Zolpidem Tartrate (Ambien -) 5 mg PO HS PRN PRN Reason: INSOMNIA - Objective Vital Signs: Vital Signs Temperature 98.7 F 02/05/17 06:00 Pulse Rate 79 02/05/17 06:00 Respiratory Rate 18 02/05/17 08:42 Blood Pressure 154/76 02/05/17 06:00 O2 Sat by Pulse Oximetry (%) 94 L 02/05/17 08:42 Constitutional: Yes: No Distress, Calm Eyes: Yes: Conjunctiva Clear, EOM Intact HENT: Yes: Atraumatic, Normocephalic Neck: Yes: Supple, Trachea Midline Cardiovascular: Yes: Regular Rate and Rhythm Respiratory: Yes: Regular Gastrointestinal: Yes: Soft. No: Distention, Tenderness ...Rectal Exam: Yes: Other (wound with some granulation tissue . still some purple blanching and min mild induration near lateral aspects of incision. less fibrinous exudate at base. serosanguinous drainage. josh x [address] ) Genitourinary: Yes: Youngblood Present Breast(s): No: Nipple Inversion, Skin Changes Musculoskeletal: No: Joint Stiffness, Joint Swelling Extremities: No: Calf Tenderness, Erythema Integumentary: Yes: Erythema Wound/Incision: Yes: Draining Neurological: Yes: Alert, Oriented Psychiatric: Yes: Alert, Oriented Labs: CBC, BMP 02/04/17 09:00 02/04/17 09:00 INR, PTT INR 1.38 (0.82-1.09) H 01/26/17 19:15 Problem List - Problems (1) Abscess of buttock Assessment/Plan: doing well okay to go to subacute rehab should go with youngblood in place and will probably remove youngblood once wound gets smaller will prob remove josh drains in 1 week agree with oral abx for another [address] Alegre will be her medical doc following at rehab Dr. Mcdonald my partner will be helping with wound care patient should cont BID dakins moistened dressings for now. cover with abd and disposable underwear/diaper. Code(s): L02.31 - CUTANEOUS ABSCESS OF BUTTOCK (2) Diabetes Code(s): E11.9 - TYPE 2 DIABETES MELLITUS WITHOUT COMPLICATIONS (3) Hyperglycemia Code(s): R73.9 - HYPERGLYCEMIA, UNSPECIFIED
[2017-02-05] MEDS: ACETAMINOPHEN 325 MG TABLET (FP) PO PRN ×2 (12:44→18:05)
[2017-02-05] MEDS ORDERED: MAGNESIUM CITRATE 300 ML BOTTLE PO ONE (14:00)
--- NOTE | 2017-02-05 14:40 | PN ---
[id number]. OBJECTIVE:61 year old female with PMH significant for DM, HTN, L TKR 2016 admitted with right buttock cellulitis. She has been admitted for further management. s/p I&D on 01/27 and 01/31. Cultures + multiorganism, + pseudomonas. Vital Signs Period Temp Pulse Resp BP Sys/Sloan Pulse Ox Last 24 Hr 98.1 F-98.7 F 79-85 18-18 138-154/67-76 92-94 GENERAL: The patient is awake, alert, and fully oriented, in no acute distress. HEAD: Normal with no signs of trauma. EYES: PERRL, extraocular movements intact, sclera anicteric, conjunctiva clear. No ptosis. ENT: Ears normal, nares patent, oropharynx clear without exudates, moist mucous membranes. NECK: Trachea midline, full range of motion, supple. LUNGS: Breath sounds equal, clear to auscultation bilaterally, no wheezes, no crackles, no accessory muscle use. HEART: Regular rate and rhythm, S1, S2 without murmur, rub or gallop. ABDOMEN: Soft, nontender, nondistended, normoactive bowel sounds, no guarding, no rebound, no hepatosplenomegaly, no masses. : perineal wound open with josh drain, granulating tissue , no eythema + tenderness to palpation youngblood in place draining clear yellow urine EXTREMITIES: 2+ pulses, warm, well-perfused, no edema. NEUROLOGICAL: Cranial nerves II through XII grossly intact. Normal speech, gait not observed. PSYCH: Normal mood, normal affect. SKIN: Warm, dry, normal turgor, no rashes or lesions noted Laboratory Results - last 24 hr 02/04/17 02/04/17 02/04/17 09:30 16:52 20:30 POC Glucometer 138 172 Vancomycin Trough 18.777 H* Random Vancomycin 02/05/17 02/05/17 02/05/17 06:42 07:30 11:36 POC Glucometer 116 140 Vancomycin Trough Random Vancomycin 12.770 Active Medications Generic Name Dose Route Start Last Admin Trade Name Freq PRN Reason Stop Dose Admin Acetaminophen 650 mg 01/27/17 01:44 02/05/17 12:44 Tylenol - PO 650 mg Q6H PRN Administration FEVER OR PAIN Ascorbic Acid 500 mg 02/03/17 22:00 02/05/17 09:44 Vitamin C - PO 500 mg BID [facility] Administration Ciprofloxacin 500 mg 02/05/17 11:00 02/05/17 10:44 Cipro (Restricted To Id) PO 500 mg BID [facility] Administration Clindamycin HCl 300 mg 02/05/17 10:30 02/05/17 14:35 Cleocin - PO 300 mg TID [facility] Administration Diphenhydramine HCl 12.5 mg 01/31/17 14:39 Benadryl Injection - IVPUSH ONCE PRN FOR ITCHING Enoxaparin Sodium 40 mg 01/28/17 10:00 02/05/17 09:45 Lovenox - SQ 40 mg DAILY [facility] Administration Fluconazole 200 mg 02/05/17 10:00 02/05/17 10:30 Diflucan - PO 200 mg DAILY [facility] Administration Insulin Aspart 1 vial 01/30/17 11:47 02/05/17 11:51 Novolog Vial Sliding Scale - SQ Not Given ACHS COUNT INCLUDES [facility] Protocol Insulin Detemir 15 units 02/01/17 13:49 02/04/17 21:40 Levemir Vial SQ 15 units HS [facility] Administration Lactobacillus Acidophilus 1 tab 01/29/17 14:00 02/05/17 09:45 Bacid - PO 1 tab DAILY [facility] Administration Losartan Potassium 100 mg 01/27/17 10:00 02/05/17 09:44 Cozaar - PO 100 mg DAILY [facility] Administration Magnesium Hydroxide 30 ml 02/03/17 09:45 02/03/17 11:07 Milk Of Magnesia - PO 30 ml DAILY PRN Administration CONSTIPATION Multivitamins/Minerals/Vitamin C 1 tab 02/04/17 10:00 02/05/17 09:44 Tab-A-Vit - PO 1 tab DAILY [facility] Administration Nystatin 1 applic 02/01/17 11:30 02/05/17 09:46 Nystop Powder - TP 1 applic DAILY [facility] Administration Polyethylene Glycol 17 gm 02/04/17 09:47 Miralax (For Daily Use) - PO DAILY PRN CONSTIPATION Senna/Docusate Sodium 1 tablet 02/02/17 10:00 02/05/17 09:45 Pericolace - PO 1 tablet BID [facility] Administration Sodium Hypochlorite 1 applic 02/01/17 10:45 02/05/17 09:45 Dakin's Solution 0.25% (Half-Strength) - NR 1 applic BID [facility] Administration Tramadol HCl 50 mg 02/01/17 10:02 02/02/17 08:35 Ultram - PO 50 mg Q4H PRN Administration PAIN Microbiology 01/31/17 15:30 Wound Gram Stain - Final 01/31/17 15:30 Wound Wound Culture - Final Pseudomonas Aeruginosa 01/28/17 11:00 Abscess Gram Stain - Final 01/28/17 11:00 Abscess Wound Culture - Final Yeast Like Organism Propionibacterium Granulosum Non Spore Form Gram Pos Meghann 01/26/17 19:15 Blood - Peripheral Venous Blood Culture - Final NO GROWTH AFTER 5 DAYS INCUBATION 01/26/17 19:15 Blood - Peripheral Venous Blood Culture - Final NO GROWTH AFTER 5 DAYS INCUBATION 01/28/17 11:00 Abscess Gram Stain - Final 01/28/17 11:00 Abscess Wound Culture - Final Yeast Like Organism Propionibacterium Granulosum Non Spore Form Gram Pos Meghann 01/27/17 13:09 Buttock - Right Gram Stain - Final 01/27/17 13:09 Buttock - Right Wound Culture - Final Staphylococcus Coagulase Neg 01/27/17 01:00 Nares - Right Nares MRSA Screen - Final NO MRSA ISOLATED 01/27/17 00:10 Nares - Mrsa Screen - Left MRSA Screen - Final NO MRSA ISOLATED 01/26/17 23:00 Urine - Urine Clean Catch Urine Culture - Final NO GROWTH OBTAINED ASSESSMENT/PLAN: 1. ID: Right buttock necrotizing cellulitis with severe sepsis - Sepsis resolved, repeat BC negative - pt transitined to diflucan, clinda and cipro, - Cont Dakin's packing with BID dressing changes - MVI and vit C daily 2. DM II - Levemir 15units HS - ISS, BGM ACHS 4. HTN - b/p at goal continue loosartan f/e/n - diabetic diet - replete lytes prn ppx - lovenox - oob - scd dispo: requires in patient care, awaiting a bed at SNF Visit type - Emergency Visit Emergency Visit: Yes ED Registration Date: 01/26/17 Care time: The patient presented to the Emergency Department on the above date and was hospitalized for further evaluation of their emergent condition. - New Patient This patient is new to me today: No - Critical Care Critical Care patient: No - Discharge Referral Referred to [facility] Med P.C.: No
[2017-02-05] MEDS: INSULIN DETEMIR 100 UNITS/ML MDV SQ SCH (22:04)
[2017-02-06 02:15] VITALS: TEMP 98.6
[2017-02-06 06:29] VITALS: BP 156/80; PULSE 77
[2017-02-06] MEDS: ACETAMINOPHEN 325 MG TABLET (FP) PO PRN (06:39)
[2017-02-06] MEDS: CLINDAMYCIN HCL 150 MG CAPSULE (FP) PO SCH ×2 (06:39→13:51)
[2017-02-06] MEDS: INSULIN SLIDING SCALE (NOVOLOG) 1 VIAL SQ SCH ×2 (06:46→13:50)
[2017-02-06] MEDS ORDERED: PT OWN MED DRAWER 7, Y5N ONE (09:34)
[2017-02-06] MEDS: SENNOSIDES/DOCUSATE COMBO (SENNA PLUS) TABLET (UD) PO SCH (09:38)
[2017-02-06] MEDS: LOSARTAN POTASSIUM 50 MG TABLET (FP) PO SCH (09:38)
[2017-02-06] MEDS: MULTIVITAMINS (DAILY MVI) TABLET (FP) PO SCH (09:38)
[2017-02-06] MEDS: FLUCONAZOLE 100 MG TABLET (UD) PO SCH (09:38)
[2017-02-06] MEDS: CIPROFLOXACIN 250 MG TABLET (RESTRICTED TO ID) PO SCH (09:39)
[2017-02-06] MEDS: ASCORBIC ACID 500 MG TABLET (FP) PO SCH (09:39)
[2017-02-06] MEDS: NYSTATIN POWDER 100,000 UNITS/GM - 15 GM TOPICAL POWDER TP SCH (09:39)
[2017-02-06] MEDS: SODIUM HYPOCHLORITE 0.25%- 473 ML BULK BOTTLE NR SCH (09:40)
[2017-02-06] MEDS: ENOXAPARIN NA (PORCINE) 40 MG/0.4 ML DISP.SYRIN SQ SCH (09:40)
[2017-02-06] MEDS: LACTOBACILLUS ACIDOPHILUS 1 EACH TAB (FP) PO SCH (09:40)
--- NOTE | 2017-02-06 10:17 | PN ---
Progress Note, Physician History of Present Illness: Wounds examined with Dr. Angulo and hospitalist Reports less pain. States she feels "100%" better No fever/ chills Tolerating oral antibiotics - Current Medication List Current Medications: Active Medications Acetaminophen (Tylenol -) 650 mg PO Q6H PRN PRN Reason: FEVER OR PAIN Last Admin: 02/06/17 06:39 Dose: 650 mg Ascorbic Acid (Vitamin C -) 500 mg PO BID [facility] Last Admin: 02/06/17 09:39 Dose: 500 mg Ciprofloxacin (Cipro (Restricted To Id)) 500 mg PO BID [facility] Last Admin: 02/06/17 09:39 Dose: 500 mg Clindamycin HCl (Cleocin -) 300 mg PO TID [facility] Last Admin: 02/06/17 06:39 Dose: 300 mg Diphenhydramine HCl (Benadryl Injection -) 12.5 mg IVPUSH ONCE PRN PRN Reason: FOR ITCHING Enoxaparin Sodium (Lovenox -) 40 mg SQ DAILY [facility] Last Admin: 02/06/17 09:40 Dose: 40 mg Fluconazole (Diflucan -) 200 mg PO DAILY [facility] Last Admin: 02/06/17 09:38 Dose: 200 mg Insulin Aspart (Novolog Vial Sliding Scale -) 1 vial SQ ACHS [facility] PRN Reason: Protocol Last Admin: 02/06/17 06:46 Dose: Not Given Insulin Detemir (Levemir Vial) 15 units SQ HS [facility] Last Admin: 02/05/17 22:04 Dose: 15 units Lactobacillus Acidophilus (Bacid -) 1 tab PO DAILY [facility] Last Admin: 02/06/17 09:40 Dose: 1 tab Losartan Potassium (Cozaar -) 100 mg PO DAILY [facility] Last Admin: 02/06/17 09:38 Dose: 100 mg Magnesium Hydroxide (Milk Of Magnesia -) 30 ml PO DAILY PRN PRN Reason: CONSTIPATION Last Admin: 02/03/17 11:07 Dose: 30 ml Multivitamins/Minerals/Vitamin C (Tab-A-Vit -) 1 tab PO DAILY [facility] Last Admin: 02/06/17 09:38 Dose: 1 tab Nystatin (Nystop Powder -) 1 applic TP DAILY [facility] Last Admin: 02/06/17 09:39 Dose: 1 applic Polyethylene Glycol (Miralax (For Daily Use) -) 17 gm PO DAILY PRN PRN Reason: CONSTIPATION Senna/Docusate Sodium (Pericolace -) 1 tablet PO BID [facility] Last Admin: 02/06/17 09:38 Dose: 1 tablet Sodium Hypochlorite (Dakin's Solution 0.25% (Half-Strength) -) 1 applic NR BID [facility] Last Admin: 02/06/17 09:40 Dose: 1 applic Tramadol HCl (Ultram -) 50 mg PO Q4H PRN PRN Reason: PAIN Last Admin: 02/02/17 08:35 Dose: 50 mg - Objective Vital Signs: Vital Signs Temperature 98.6 F 02/06/17 06:27 Pulse Rate 77 02/06/17 06:27 Respiratory Rate 17 02/06/17 06:27 Blood Pressure 156/80 02/06/17 06:27 O2 Sat by Pulse Oximetry (%) 95 02/06/17 06:27 Constitutional: Yes: No Distress Eyes: Yes: Conjunctiva Clear Cardiovascular: Yes: Regular Rate and Rhythm, S1, S2 Respiratory: Yes: CTA Bilaterally Gastrointestinal: Yes: Normal Bowel Sounds, Soft. No: Tenderness Integumentary: Yes: Other (R buttock erythema/ induration improved No drainage noted) Labs: CBC, BMP 02/04/17 09:00 02/04/17 09:00 INR, PTT INR 1.38 (0.82-1.09) H 01/26/17 19:15 Assessment/Plan S/P I&D buttock abscess- polymicrobial Sepsis secondary to soft tissue infection Lactic acidosis Diabetes mellitus Antibiotic allergies Pt examined with Dr Angulo Continue po clindamycin / ciprofloxacin/ fluconazole additional 7-10d Local wound care
--- NOTE | 2017-02-06 10:22 | PN ---
Progress Note, Physician Chief Complaint: feels better History of Present Illness: +BM. still some pain at wound area. - Current Medication List Current Medications: Active Medications Acetaminophen (Tylenol -) 650 mg PO Q6H PRN PRN Reason: FEVER OR PAIN Last Admin: 02/06/17 06:39 Dose: 650 mg Ascorbic Acid (Vitamin C -) 500 mg PO BID [facility] Last Admin: 02/06/17 09:39 Dose: 500 mg Ciprofloxacin (Cipro (Restricted To Id)) 500 mg PO BID [facility] Last Admin: 02/06/17 09:39 Dose: 500 mg Clindamycin HCl (Cleocin -) 300 mg PO TID [facility] Last Admin: 02/06/17 06:39 Dose: 300 mg Diphenhydramine HCl (Benadryl Injection -) 12.5 mg IVPUSH ONCE PRN PRN Reason: FOR ITCHING Enoxaparin Sodium (Lovenox -) 40 mg SQ DAILY [facility] Last Admin: 02/06/17 09:40 Dose: 40 mg Fluconazole (Diflucan -) 200 mg PO DAILY [facility] Last Admin: 02/06/17 09:38 Dose: 200 mg Insulin Aspart (Novolog Vial Sliding Scale -) 1 vial SQ ACHS [facility] PRN Reason: Protocol Last Admin: 02/06/17 06:46 Dose: Not Given Insulin Detemir (Levemir Vial) 15 units SQ HS [facility] Last Admin: 02/05/17 22:04 Dose: 15 units Lactobacillus Acidophilus (Bacid -) 1 tab PO DAILY [facility] Last Admin: 02/06/17 09:40 Dose: 1 tab Losartan Potassium (Cozaar -) 100 mg PO DAILY [facility] Last Admin: 02/06/17 09:38 Dose: 100 mg Magnesium Hydroxide (Milk Of Magnesia -) 30 ml PO DAILY PRN PRN Reason: CONSTIPATION Last Admin: 02/03/17 11:07 Dose: 30 ml Multivitamins/Minerals/Vitamin C (Tab-A-Vit -) 1 tab PO DAILY [facility] Last Admin: 02/06/17 09:38 Dose: 1 tab Nystatin (Nystop Powder -) 1 applic TP DAILY [facility] Last Admin: 02/06/17 09:39 Dose: 1 applic Polyethylene Glycol (Miralax (For Daily Use) -) 17 gm PO DAILY PRN PRN Reason: CONSTIPATION Senna/Docusate Sodium (Pericolace -) 1 tablet PO BID [facility] Last Admin: 02/06/17 09:38 Dose: 1 tablet Sodium Hypochlorite (Dakin's Solution 0.25% (Half-Strength) -) 1 applic NR BID [facility] Last Admin: 02/06/17 09:40 Dose: 1 applic Tramadol HCl (Ultram -) 50 mg PO Q4H PRN PRN Reason: PAIN Last Admin: 02/02/17 08:35 Dose: 50 mg - Objective Vital Signs: Vital Signs Temperature 98.6 F 02/06/17 06:27 Pulse Rate 77 02/06/17 06:27 Respiratory Rate 17 02/06/17 06:27 Blood Pressure 156/80 02/06/17 06:27 O2 Sat by Pulse Oximetry (%) 95 02/06/17 06:27 Constitutional: Yes: No Distress, Calm Eyes: Yes: Conjunctiva Clear, EOM Intact HENT: Yes: Atraumatic, Normocephalic Neck: Yes: Supple, Trachea Midline Cardiovascular: Yes: Regular Rate and Rhythm Respiratory: Yes: Regular, CTA Bilaterally Gastrointestinal: Yes: Soft. No: Distention, Tenderness ...Rectal Exam: Yes: Other (wounds still draining serosanguinous fluid. some granulation. Elizabeth drains removed. repacked with moistened cling dressing.) Genitourinary: Yes: Youngblood Present Breast(s): No: Nipple Inversion, Skin Changes Musculoskeletal: No: Joint Stiffness, Joint Swelling Extremities: No: Calf Tenderness, Erythema Integumentary: No: Erythema, Rash Wound/Incision: Yes: Draining Neurological: Yes: Alert, Oriented Psychiatric: Yes: Alert, Oriented Labs: CBC, BMP 02/04/17 09:00 02/04/17 09:00 INR, PTT INR 1.38 (0.82-1.09) H 01/26/17 19:15 Problem List - Problems (1) Abscess of buttock Assessment/Plan: cont dakins packing for now at least BID and apply ABD dressing on top. secure with underwear or diaper. needs full dressing change if she has BM. if she has BM will need sitz bath and dressing change. cont youngblood for now while dressing changes are so frequent. cont nystatin powder liberally to area near labia/thigh. cont oral abx clear from surgical standpoint to go to [facility] rest[facility]ative Code(s): L02.31 - CUTANEOUS ABSCESS OF BUTTOCK (2) Diabetes Code(s): E11.9 - TYPE 2 DIABETES MELLITUS WITHOUT COMPLICATIONS (3) Hyperglycemia Code(s): R73.9 - HYPERGLYCEMIA, UNSPECIFIED
--- NOTE | 2017-02-06 13:53 | DS ---
Physical Exam: SUBJECTIVE: Patient seen and examined, reports feeling much better denies any tactile fever denies any chest pain or shortness of breath OBJECTIVE: patient is a 61 year old female with past medical history significant for DM, HTN who presents to the ED with a 2-3 day history of dizziness/nausea, right buttock abscess and elevated blood sugars. She also report a vaginal yeast infection on and off for the past month. She denies chest pain, SOB, abdominal pain, vomiting, diarrhea. ER course was notable for: (1) WBC 14.4; Lactic acid 2.411 (2) given vanco IV and ertapenem IM, diflucan po (3)pain relieved with IV ofirmev and toradol Vital Signs Period Temp Pulse Resp BP Sys/Sloan Pulse Ox Last 24 Hr 98.1 F-98.8 F 74-81 17-18 144-156/62-80 92-97 PHYSICAL EXAM GENERAL: The patient is awake, alert, and fully oriented, in no acute distress. HEAD: Normal with no signs of trauma. EYES: PERRL, extraocular movements intact, sclera anicteric, conjunctiva clear. No ptosis. ENT: Ears normal, nares patent, oropharynx clear without exudates, moist mucous membranes. NECK: Trachea midline, full range of motion, supple. LUNGS: Breath sounds equal, clear to auscultation bilaterally, no wheezes, no crackles, no accessory muscle use. HEART: Regular rate and rhythm, S1, S2 without murmur, rub or gallop. ABDOMEN: Soft, nontender, nondistended, normoactive bowel sounds, no guarding, no rebound, no hepatosplenomegaly, no masses. : perineal wound open with josh drain, granulating tissue , no eythema + tenderness to palpation youngblood in place draining clear yellow urine EXTREMITIES: 2+ pulses, warm, well-perfused, no edema. NEUROLOGICAL: Cranial nerves II through XII grossly intact. Normal speech, gait not observed. PSYCH: Normal mood, normal affect. SKIN: Warm, dry, normal turgor, no rashes or lesions noted LABS Laboratory Results - last 24 hr 02/05/17 02/05/17 02/06/17 17:11 22:02 06:44 POC Glucometer 148 170 122 02/06/17 12:02 POC Glucometer 111 CBC WBC 6.9 K/mm3 (4.0-10.8) 02/04/17 09:00 RBC 3.36 M/mm3 (3.60-5.2) L 02/04/17 09:00 Hgb 10.9 GM/dl (10.7-15.3) 02/04/17 09:00 Hct 32.0 % (32.4-45.2) L 02/04/17 09:00 MCV 95.4 fl (80-96) 02/04/17 09:00 MCHC 34.0 g/dl (32.0-36.0) 02/04/17 09:00 RDW 14.0 % (11.6-15.6) 02/04/17 09:00 Plt Count 332 K/MM3 (134-434) 02/04/17 09:00 MPV 8.0 fl (7.5-11.1) 02/04/17 09:00 Neutrophils % 75.8 % (42.8-82.8) 02/04/17 09:00 Lymphocytes % 15.6 % (8-40) D 02/04/17 09:00 Monocytes % 5.9 % (3.8-10.2) 02/04/17 09:00 Eosinophils % 1.9 % (0-4.5) D 02/04/17 09:00 Basophils % 0.8 % (0-2.0) 02/04/17 09:00 Band Neutrophils 2.0 % (0-10) D 02/02/17 07:30 Platelet Estimate Normal (NORMAL) 01/27/17 07:10 CMP Sodium 137 mmol/L (136-145) 02/04/17 09:00 Potassium 4.6 mmol/L (3.5-5.1) 02/04/17 09:00 Chloride 100 mmol/L (98-107) 02/04/17 09:00 Carbon Dioxide 27 mmol/L (22-28) 02/04/17 09:00 Anion Gap 10 (8-16) 02/04/17 09:00 BUN 11 mg/dl (7-18) 02/04/17 09:00 Creatinine 0.6 mg/dl (0.6-1.3) 02/04/17 09:00 Creat Clearance w eGFR > 60 (>60) 02/03/17 07:27 POC Glucometer 111 UNITS (()) 02/06/17 12:02 Random Glucose 229 mg/dl (74-106) H D 02/04/17 09:00 Hemoglobin A1c % 12.0 % (4.8-6.0) H 01/27/17 07:10 Lactic Acid 1.986 mmol/L (0.4-2.0) 01/26/17 23:00 Calcium 8.8 mg/dl (8.4-10.2) 02/04/17 09:00 Phosphorus 4.0 mg/dl (2.5-4.6) D 02/03/17 07:27 Magnesium 1.9 mg/dL (1.8-2.4) 02/04/17 09:00 Total Bilirubin 0.5 mg/dl (0.2-1.0) D 02/03/17 07:27 AST 35 U/L (10-42) 02/03/17 07:27 ALT 25 U/L (10-40) 02/03/17 07:27 Alkaline Phosphatase 95 U/L (32-92) H 02/03/17 07:27 Creatine Kinase 39 IU/L (26-140) 01/26/17 19:15 Troponin I 0.03 ng/ml (0.03-0.50) 01/26/17 19:15 Total Protein 6.6 g/dl (6.4-8.3) 02/03/17 07:27 Albumin 2.1 g/dl (3.5-5.0) L 02/03/17 07:27 Active Medications Generic Name Dose Route Start Last Admin Trade Name Fay PRN Reason Stop Dose Admin Acetaminophen 650 mg 01/27/17 01:44 02/06/17 06:39 Tylenol - PO 650 mg Q6H PRN Administration FEVER OR PAIN Ascorbic Acid 500 mg 02/03/17 22:00 02/06/17 09:39 Vitamin C - PO 500 mg BID ROGER Administration Ciprofloxacin 500 mg 02/05/17 11:00 02/06/17 09:39 Cipro (Restricted To Id) PO 500 mg BID ROGER Administration Clindamycin HCl 300 mg 02/05/17 10:30 02/06/17 13:51 Cleocin - PO 300 mg TID ROGER Administration Diphenhydramine HCl 12.5 mg 01/31/17 14:39 Benadryl Injection - IVPUSH ONCE PRN FOR ITCHING Enoxaparin Sodium 40 mg 01/28/17 10:00 02/06/17 09:40 Lovenox - SQ 40 mg DAILY ROGER Administration Fluconazole 200 mg 02/05/17 10:00 02/06/17 09:38 Diflucan - PO 200 mg DAILY ROGER Administration Insulin Aspart 1 vial 01/30/17 11:47 02/06/17 13:50 Novolog Vial Sliding Scale - SQ Not Given ACHS [facility] Protocol Insulin Detemir 15 units 02/01/17 13:49 02/05/17 22:04 Levemir Vial SQ 15 units HS ROGER Administration Lactobacillus Acidophilus 1 tab 01/29/17 14:00 02/06/17 09:40 Bacid - PO 1 tab DAILY ROGER Administration Losartan Potassium 100 mg 01/27/17 10:00 02/06/17 09:38 Cozaar - PO 100 mg DAILY ROGER Administration Magnesium Hydroxide 30 ml 02/03/17 09:45 02/03/17 11:07 Milk Of Magnesia - PO 30 ml DAILY PRN Administration CONSTIPATION Multivitamins/Minerals/Vitamin C 1 tab 02/04/17 10:00 02/06/17 09:38 Tab-A-Vit - PO 1 tab DAILY ROGER Administration Nystatin 1 applic 02/01/17 11:30 02/06/17 09:39 Nystop Powder - TP 1 applic DAILY ROGER Administration Polyethylene Glycol 17 gm 02/04/17 09:47 Miralax (For Daily Use) - PO DAILY PRN CONSTIPATION Senna/Docusate Sodium 1 tablet 02/02/17 10:00 02/06/17 09:38 Pericolace - PO 1 tablet BID ROGER Administration Sodium Hypochlorite 1 applic 02/01/17 10:45 02/06/17 09:40 Dakin's Solution 0.25% (Half-Strength) - NR 1 applic BID ROGER Administration Tramadol HCl 50 mg 02/01/17 10:02 02/02/17 08:35 Ultram - PO 50 mg Q4H PRN Administration PAIN Microbiology 01/31/17 15:30 Wound Gram Stain - Final 01/31/17 15:30 Wound Wound Culture - Final Pseudomonas Aeruginosa 01/28/17 11:00 Abscess Gram Stain - Final 01/28/17 11:00 Abscess Wound Culture - Final Yeast Like Organism Propionibacterium Granulosum Non Spore Form Gram Pos Meghann 01/26/17 19:15 Blood - Peripheral Venous Blood Culture - Final NO GROWTH AFTER 5 DAYS INCUBATION 01/26/17 19:15 Blood - Peripheral Venous Blood Culture - Final NO GROWTH AFTER 5 DAYS INCUBATION 01/28/17 11:00 Abscess Gram Stain - Final 01/28/17 11:00 Abscess Wound Culture - Final Yeast Like Organism Propionibacterium Granulosum Non Spore Form Gram Pos Meghann 01/27/17 13:09 Buttock - Right Gram Stain - Final 01/27/17 13:09 Buttock - Right Wound Culture - Final Staphylococcus Coagulase Neg 01/27/17 01:00 Nares - Right Nares MRSA Screen - Final NO MRSA ISOLATED 01/27/17 00:10 Nares - Mrsa Screen - Left MRSA Screen - Final NO MRSA ISOLATED 01/26/17 23:00 Urine - Urine Clean Catch Urine Culture - Final NO GROWTH OBTAINED HOSPITAL COURSE: patient was Admitted from the emergency department for further management of her right buttock necrotizing cellulitis with severe sepsis. patient was evaluated by general surgeon Dr. Angulo on day 1 of hospital admission. patient is s/p I&D on 01/27 and 01/31. Cultures + multiorganism, + pseudomonas and yeast. she was started on iminipem, vancomycin and Flagyl IV for 7 days of hospitalization. infectious disease physician Dr. Boggs was consulted and followed. wound culture resulted as positive for yeast and flagyl was discontinued, patient was placed on diflucan for three days, . patient's culture resulted as positive pseudomonas aeruginosa antibiotic was changed to fortaz for 2 days. leukocytois resolved and pt remained afebrile. patient was transitioned to by mouth antibiotics on hospital day 9, diflucan, clinda and cipro. twice a day dressing changes was continued with Dakin's solution's for 7 days. patient was noted to have elevated fingersticks upon arrival from the emergency department hemoglobin A1c resulted as 12.7. Patient was placed on fingersticks before meals and at bedtime with regular insulin coverage and Levemir. Patient does have a past medical history of hypertension. Blood pressure remained at goal throughout hospitalization and loosartan was continued. PLAN: discharged to short-term rehabilitation continue dakins packing BID and apply ABD dressing on top. secure with underwear or diaper. needs full dressing change if she has BM. if she has BM will need sitz bath and dressing change. continue nystatin powder liberally to area near labia/thigh. continue oral abx continue fingersticks before meals and at bedtime with regular insulin coverage and Levemir at night Date of Admission:01/26/17 Date of Discharge: 02/06/17 Minutes to complete discharge: 45 Discharge Summary Reason For Visit: SEPSIS/BUTTOCK ABSCESS Current Active Problems Abscess of buttock (Acute) Cellulitis of buttock, right (Acute) Diabetes (Acute) Hyperglycemia (Acute) Penicillin allergy (Acute) Condition: Improved - Instructions Diet, Activity, Other Instructions: Return to the emergency department immediately with ANY new, persistent or worsening symptoms. Referrals: Maricarmen Ashley [Primary Care Provider] - Maldonado Angulo MD [Staff Physician] - Deniz Boggs MD [Staff Physician] - Disposition: RESIDENTIAL FACILITY - Home Medications Comprehensive Discharge Medication List: Ambulatory Orders Losartan Potassium 100 mg PO DAILY 01/26/17 Metformin HCl 500 mg PO BID 01/26/17 This patient is new to me today: No Emergency Visit: Yes ED Registration Date: 01/26/17 Care time: The patient presented to the Emergency Department on the above date and was hospitalized for further evaluation of their emergent condition. Critical Care patient: No - Discharge Referral Referred to [facility] No
== END 2017-02-06 15:25 | DRG 854 ==
LOC: FER 18:30 → FM/S 21:10 → UNDOADMIN 23:52 → FM/S 23:52
PROVIDERS: ADMIT Internal Medicine; ATTEND Nurse Practitioner Family
PROC: 0J9900Z Drainage of Buttock Subcutaneous Tissue and Fascia with Drainage Device, Open Approach (ICD-10-PCS; 2017-01-27)
PROC: 0JB90ZZ Excision of Buttock Subcutaneous Tissue and Fascia, Open Approach (ICD-10-PCS; 2017-01-31)
PROC: 0JBB0ZZ Excision of Perineum Subcutaneous Tissue and Fascia, Open Approach (ICD-10-PCS; 2017-01-31)
PROC: 0J9900Z Drainage of Buttock Subcutaneous Tissue and Fascia with Drainage Device, Open Approach (ICD-10-PCS; principal; 2017-01-31 13:59)
DX: A41.9 Sepsis, unspecified organism (principal); L03.317 Cellulitis of buttock; E87.1 Hypo-osmolality and hyponatremia; E87.2 Acidosis; L02.31 Cutaneous abscess of buttock; E11.52 Type 2 diabetes mellitus with diabetic peripheral angiopathy with gangrene; B37.89 Other sites of candidiasis; E11.65 Type 2 diabetes mellitus with hyperglycemia; Z79.84 Long term (current) use of oral hypoglycemic drugs; Z96.652 Presence of left artificial knee joint; I10 Essential (primary) hypertension; E78.5 Hyperlipidemia, unspecified; K90.0 Celiac disease; Z88.0 Allergy status to penicillin; E86.0 Dehydration; B96.5 Pseudomonas (aeruginosa) (mallei) (pseudomallei) as the cause of diseases classified elsewhere
CPT/HCPCS: 36415; 71010-TC; 72192-TC; 80048; 80053; 81003; 81015; 82550; 82803; 83036; 83605; 83735; 84100; 84484; 85025; 85610; 85730; 87040; 87070; 87076; 87077; 87081; 87086; 87186; 87205; 88304-TC; 93005; 94010; 94760; 99285-25; G0480; J1644; J3480

== ENCOUNTER 2023-09-11 09:25 | Emergency (ER) | payer OTHER ==
[2023-09-11] MEDS ORDERED: TENECTEPLASE 50 MG VIAL IVPUSH ONE ×3 (09:48→10:01)
[2023-09-11] MEDS ORDERED: LABETALOL HCL 20 MG/4 ML VIAL ONE (10:03)
[2023-09-11] MEDS ORDERED: LABETALOL HCL 5 MG/1 ML (100MG/20 ML VIAL) IVPUSH ONE (10:03)
[2023-09-11 10:10] VITALS: BMI 37.8
[2023-09-11 10:10] LABS: BASO % 1.2 % (0-2.0); EOS % 2.9 % (0-4.5); HEMATOCRIT 34.1 % (32.4-45.2); HEMOGLOBIN 11.2 GM/dL (10.7-15.3); MCH 31.3 pg (25.7-33.7); MCHC 32.9 g/dl (32.0-36.0); MEAN CELL VOLUME 95.3 fl (80-96); MEAN PLT VOLUME 8.2 fl (7.5-11.1); MONO % 9.5 % (3.8-10.2); NEUT % 70.4 % (42.8-82.8); PLATELET COUNT 229 10^3/uL (134-434); RBC 3.58 M/mm3 (3.60-5.2); WHITE BLOOD COUNT 4.9 K/mm3 (4.0-10.0)
[2023-09-11 10:16] LABS: INR 1.09 (0.83-1.09); PROTHROMBIN TIME (PATIENT) 12.6 SEC (9.7-13.0)
[2023-09-11 10:19] LABS: ACTIVATED PTT 30.8 SECONDS (25.2-36.5)
[2023-09-11 10:30] LABS: CHLORIDE 101 mmol/L (98-107); POTASSIUM 5.5 mmol/L (3.5-5.1); SODIUM 135 mmol/L (136-145)
[2023-09-11 10:32] LABS: ALBUMIN 2.6 g/dl (3.4-5.0); ANION GAP 6 mmol/L (4-13); BLOOD UREA NITROGEN 37.6 mg/dL (7-18); CALCIUM 8.8 mg/dL (8.5-10.1); CO2 28 mmol/L (21-32)
[2023-09-11 10:35] LABS: CHOLESTEROL 168 mg/dL (50-200); CREATININE 1.6 mg/dL (0.55-1.3); SGOT/AST 35 U/L (15-37); SGPT/ALT 21 U/L (13-61)
[2023-09-11 10:36] LABS: BILIRUBIN,TOTAL 0.3 mg/dL (0.2-1); LDL CHOLESTEROL (ONLY SJRH) 98 mg/dL (5-100); TOT PROT 7.6 g/dl (6.4-8.2)
[2023-09-11 10:38] LABS: ALK PHOS 74 U/L (45-117); GLUCOSE,RANDOM 469 mg/dL (74-106); HDL CHOLESTEROL 44 mg/dL (40-60)
[2023-09-11 11:30] VITALS: TEMP 98
[2023-09-11 11:35] VITALS: BP 147/86; RESP 14
[2023-09-11 11:46] VITALS: PULSE 79
== END 2023-09-11 11:00 | disposition short-term general hospital (02) ==
LOC: JER 09:25
PROC: 3E03017 Introduction of Other Thrombolytic into Peripheral Vein, Open Approach (ICD-10-PCS; principal; 2023-09-11)
PROC: 3E033GC Introduction of Other Therapeutic Substance into Peripheral Vein, Percutaneous Approach (ICD-10-PCS; 2023-09-11)
DX: I63.232 Cerebral infarction due to unspecified occlusion or stenosis of left carotid arteries (principal); R53.1 Weakness; R29.810 Facial weakness; R47.01 Aphasia
CPT/HCPCS: 36415; 70450-TC; 70496-TC; 70498-TC; 80053; 80061; 83036; 84484; 85025; 85610; 85730; 86850; 86900; 86901; 93005; 93010; 99291; 99292; J3101; Q9967